=== PATIENT | female | born 1960 | race Caucasian/White ===

== ENCOUNTER 2017-01-09 09:08 | Inpatient (IN) ==
[2017-01-09] MEDS ORDERED: SODIUM CHLORIDE 0.9% 1,000 ML IV STA (09:59)
--- NOTE | 2017-01-09 10:02 | Emergency Department Note ---
Arrival - Arrival Chief Complaint: Non-Specific Stated Complaint: chest pain sob legs swollen ED Nursing Triage Note: c/o Having coughing x 7 weeks, + chills., denies having nausea , also states her legs are swelling bilatereal x 7 weeks., states she has been having weight loss , states she smokes apx. 1 pack per day Mode of Arrival: Wheelchair Limitations: No Limitations Source: Patient, Family Time Seen by Provider: 01/09/17 09:28 - History of Present Illness HPI Narrative: The patient has multiple complaints and states they all started around 7 weeks ago. She complains of coughing, shortness of breath, chills, chest pain, abdominal pain, constipation and weight loss. She thinks she may have had some fever. She denies any nausea or vomiting. The patient has had approximately 20 pound weight loss in the last 7 weeks. She is a heavy smoker. Allergies/Adverse Reactions: Allergies Allergy/AdvReac Type Severity Reaction Status Date / Time No Known Allergies Allergy Unverified 01/09/17 09:16 Review of System - Review of System Constitutional: Present: chills, fever (Subjective), weakness, weight loss. Absent: diaphoresis Eyes: Absent: vision change Head/Ears/Nose/Throat: Absent: nasal drainage, sore throat Respiratory: Present: cough, respiratory distress, wheezing Cardiovascular: Present: chest pain, dyspnea on exertion, edema. Absent: palpitations, orthopnea, syncope Gastrointestinal: Present: abdominal pain, constipation. Absent: nausea, vomiting, diarrhea Genitourinary female: Absent: dysuria Musculoskeletal: Absent: back pain Neurological: Present: weakness (Generalized). Absent: headache, numbness, paresthesias, confusion, abnormal gait Medical,Surgical,& Family Hx - Medical History Medical History: noncontributory - Surgical History Abdominal Surgeries: Surgical HX of: Abdominal Surgery ("For some kind of infection") - Family History Family History: noncontributory - Social History Smoking Status: Current every day smoker Frequency of Alcohol Use: Rarely Type of Drug Use: None Exam Physical Examination: GENERAL: Alert. No acute distress. Cachectic. HEENT: Normocephalic and atraumatic. There is no nasal drainage. No pharyngeal erythema or exudate. NECK: Normal inspection. Supple. No lymphadenopathy or meningismus. LUNGS: No respiratory distress. Fair air movement. Lungs sound decrease on the right. Wheezes throughout. HEART: Regular rate and rhythm. ABDOMEN: Soft, nondistended with normal bowel sounds. Mild diffuse tenderness without guarding or rebound. BACK: Normal inspection. SKIN: Color normal. Warm and dry. EXTREMITIES: Nontender. Normal range of motion. Very thin and wasted. Pitting edema to the knees bilaterally. NEUROLOGICAL/PSYCHIATRIC: Alert and oriented -3 with normal mood and affect. Cranial nerves normal. No motor or sensory deficit. Vital Signs: Vital Signs Temperature 99.0 F 01/09/17 09:27 Pulse Rate 100 H 01/09/17 11:22 Respiratory Rate 23 01/09/17 11:22 Blood Pressure 140/124 01/09/17 09:27 O2 Sat by Pulse Oximetry 99 01/09/17 11:22 Course - Reevaluation(s) Reevaluation #1: With the elevated white count and history of subjective fever and chest x-ray findings, the patient will need to be treated for pneumonia. However, I suspect she also has some underlying pathology, likely cancer. I have discussed the patient with the hospitalist service who will see her and admit. Time: 11:52 Results - Labs CBC & BMP: 01/09/17 10:45 01/09/17 10:45 Lab Results: I have reviewed the patients labs Labs: Laboratory Tests 01/09/17 01/09/17 01/09/17 09:59 10:45 10:45 Total Bilirubin 0.50 AST 67 H ALT 65 H Alkaline Phosphatase 171 H Total Creatine Kinase 47 CK-MB (CK-2) 2.9 Troponin I 0.140 H B-Natriuretic Peptide 392 H Urine Leukocytes Negative Urine RBC <1 Urine WBC 2 - Impressions Chest x-ray shows complete opacification of the right hemithorax. KUB shows displacement of the bowel inferiorly raising the possibility of a mass. EKG shows a sinus rhythm at 99 with a sinus arrhythmia. There is a right bundle branch block. Disposition Clinical Impression: Hyponatremia, Leukocytosis, Pneumonia, Elevated liver enzymes Case discussed with: patient, patient's family Disposition: Still a Patient Condition: Stable Time of Disposition: 11:53
--- NOTE | 2017-01-09 10:25 | XRay Report ---
XR chest 2V Indication: Chest pain, shortness of breath Comparison: None available Findings: The heart and mediastinum are normal in size and configuration. The pulmonary vascularity is normal in caliber. There is diffuse opacification right hemithorax. No other lung infiltrates, effusions, pneumothorax or other abnormality is demonstrated. Impression: Opacification right hemithorax. No other acute findings. PROCEDURE INTERPRETED AT [facility] DEPARTMENT OF RADIOLOGY Final Report Signed by: Dr. Chris Saldana
--- NOTE | 2017-01-09 10:50 | XRay Report ---
XR KUB Indication: Abdominal pain Comparison: None available Findings: No free fluid or free air seen. Bowel appears displaced inferiorly. Otherwise the bowel gas pattern appears within normal limits. No abnormal calcifications are present. No other abnormality is identified. Impression: Bowel is displaced inferiorly, can't exclude mass. No other acute findings. PROCEDURE INTERPRETED AT [facility] DEPARTMENT OF RADIOLOGY Final Report Signed by: Dr. Chris Saldana
--- NOTE | 2017-01-09 10:57 | EKG Report ---
Stationary ECG Study [facility] ER Test Date: 01/09/2017 10:56:25 AM Pat Name: SANJUANA WEEMS Department: Room: Gender: F [employer]: : 1960 Requested by: Jose Elias Landis Order Number: [id number] Reading MD: VAMSHI RAMOS Intervals [place] Rate: 99 P: 30 [place]: 135 QRS: 27 QRSD: 122 T: 0 QT: 275 QTc: 332 Interpretive Statements SINUS RHYTHM WITH SINUS ARRHYTHMIA POSSIBLE RIGHT VENTRICULAR CONDUCTION DELAY Electronically Signed On 01-10-17 18:38:16 CDT by VAMSHI RAMOS [email or web address]
[2017-01-09 11:03] LABS: Basophils % 0.1 % (0.0-0.8); Hematocrit 35.8 VOL% (35.7-47.0); Hemoglobin 11.2 GM/DL (12.0-16.0); Immature Granulocytes % 0.5 %; Immature Granulocytes Absolute 0.09 #; Lymphocytes # 1.4 10*3/uL (1.4-4.0); Lymphocytes % 7.6 % (21.3-54.2); Mean Corpuscular HGB Conc 31.3 GM/DL (32-36); Mean Corpuscular Hemoglobin 29 PG (27-34); Mean Corpuscular Volume 91.1 FL (87-102); Monocytes # 1.7 10*3/uL (0.11-0.8); Monocytes % 9.7 % (1.7-12.7); Neutrophils # 14.8 10*3/uL (1.4-7.4); Neutrophils % 82.1 % (38.7-73.9); Platelet Count 316 T/CUMM (130-400); Red Blood Count 3.93 MC/CUMM (3.8-5.5); Red Cell Distribution Width 15.5 % (9.3-17.3)
[2017-01-09 11:06] LABS: Apearance,Urine Slightly Hazy (Clear); Bilirubin,Urine Negative (Negative); Blood, Urine Negative (Negative); Glucose,Urine (UA) Negative (Negative); Ketones,Urine Negative (Negative); Nitrite,Urine Negative (Negative); Protein,Urine Negative; RBC,Urine <1 /HPF (0-4); Squamous Epithelial Cell,Urine Occasional /HPF (0-10); Urine Color Yellow (Yellow); Urine Specific Gravity 1.008 (1.001-1.035); Urine Urobilinogen < 2.0 EU/DL (0.2-1.0); WBC,Urine 2 /HPF (0-6)
[2017-01-09] MEDS ORDERED: ALBUTEROL/IPRATROPIUM 3 ML NEB RESP TX STA (11:06)
[2017-01-09 11:39] LABS: Alanine Aminotransferase 65 U/L (13-56); Albumin 2.6 G/DL (3.4-5.0); Alkaline Phosphatase 171 U/L (45-117); Aspartate Amino Transferase 67 U/L (0-37); Blood Urea Nitrogen 13 MG/DL (7-18); Glucose 94 MG/DL (74-106); Osmolality,Calculated 252.4 MOS/KG (273-304); Potassium 4.5 MMOL/L (3.5-5.1); Sodium 126 MMOL/L (136-145); Total Protein 7.7 G/DL (6.4-8.3)
[2017-01-09] MEDS ORDERED: cefTRIAXone 1,000 MG in SODIUM CHLORIDE 0.9% 100 ML IV STA (11:47)
[2017-01-09] MEDS ORDERED: ONDANSETRON 4 MG/2 ML VIAL IV PRN (11:50)
[2017-01-09] MEDS ORDERED: SODIUM CHLORIDE 0.45% 1,000 ML IV SCH (12:00)
[2017-01-09] MEDS ORDERED: cefTRIAXone 1,000 MG VIAL ONE (12:03)
[2017-01-09] MEDS ORDERED: SODIUM CHLORIDE 0.9% 100 ML IV ONE (12:04)
[2017-01-09 12:31] LABS: Risk Ratio 4.56; Thyroid Stimulating Hormone 2.3 uIU/ml (0.358-3.74)
--- NOTE | 2017-01-09 12:48 | CT Report ---
CT abdomen pelvis Indication: Abdominal pain, weight loss with nausea and vomiting Comparison: None available Technique: Axial CT imaging of the abdomen and pelvis is performed without contrast. Findings: Complex heterogeneous density and effusion occupies the right lower hemithorax. Small pericardial effusion seen. CT abdomen: Moderate diffuse ascites is seen. The liver appears enlarged, no focal hepatic lesions seen. Spleen pancreas and adrenal glands are normal in size and density. No evidence of focal lesion is demonstrated in these solid organs. Kidneys are normal in size and density. No evidence of hydronephrosis or nephrolithiasis is seen. The bowel caliber is normal and no wall thickening or adjacent inflammatory change is seen. No evidence of free fluid or free air is present. CT pelvis: The bowel and bladder appear within normal limits. The pelvic organs show no evidence of abnormality Impression: Moderate abdominal ascites. Hepatomegaly. Detail limited without contrast. Complex heterogeneous density and effusion in the right lower hemithorax may indicate malignancy. Small pericardial effusion. This CT exam was performed using one or more the following dose reduction techniques: Automated exposure control, adjustment of the MA and/or KV according to patient size, or use of iterative reconstruction technique. PROCEDURE INTERPRETED AT [facility] DEPARTMENT OF RADIOLOGY Final Report Signed by: Dr. Chris Saldana
--- NOTE | 2017-01-09 13:05 | Hospitalist History & Physical ---
<Adrienne Bowieda - Last Filed: 01/09/17 14:02> Assessment and Plan (1) Sepsis Status: Acute Assessment and plan: The patient was noted to be mildly tachycardic with a heart rate noted at 100 and tachypnea with respirations noted at 23. Labs were obtained which were significant for white blood cell count 18.3, hemoglobin 11.2, sodium 126, chloride 84, carbon dioxide 41, calculated osmolality 252.4, calcium 12, AST 67 , ALT 65, alkaline phosphatase 171, troponin 0 0.140, BNP 392, albumin 2.6, globulin 5.1, HDL cholesterol 34. Urinalysis was significant for urine urobilinogen greater than 2.0, urine WBCs 2, in the presence of occasional urine squamous epithelial cells was noted. Chest x-ray was significant for opacification of the right hemithorax. Based on these findings, the patient meets the sepsis criteria. The sepsis bundle has been initiated. Strong cultures have been obtained. We will start empiric antibiotic coverage, inhaled bronchodilators, and gently rehydrate. Current Visit: Yes Qualifiers: Sepsis type: sepsis due to unspecified organism Qualified Code(s): A41.9 - Sepsis, unspecified organism (2) Hyponatremia Status: Acute Assessment and plan: Sodium was noted at 126. We will gently rehydrate and correct the deficit. We will recheck CMP in a.m. Current Visit: Yes (3) Leukocytosis Status: Acute Assessment and plan: White blood cell count was noted at 18.0. The patient was afebrile at the time of ED presentation with a temperature reported at 97.3. Strong cultures have been obtained. Empiric antibiotics have been initiated. We will await culture sensitivity report. Current Visit: Yes (4) Pneumonia Status: Acute Assessment and plan: Chest x-ray was significant for opacification of the right hemithorax. In addition, I feel that there is definitely some underlying chronic obstructive pulmonary disease. Patient reports that she is a current smoker; smokes at least one pack of cigarettes each day. We will start empiric antibiotic coverage , inhaled bronchodilators, and gently rehydrate. We will consult pulmonology to evaluate and assist during the clinical encounter. Current Visit: Yes (5) Unintended weight loss Status: Acute Assessment and plan: The patient reports excessive weight loss in recent months. She reports that she has lost an estimated "20 pounds". She is definitely cachectic and ill in appearance. The patient's weight loss is worrisome. The patient definitely has risk factors for increased risk for malignancy. Patient is a current cigarette smoker and has a strong family history of cancer. We will perform a complete workup to evaluate possible causes. We will consult gastroenterology to evaluate. Current Visit: Yes (6) Nicotine dependence Status: Acute Assessment and plan: The patient reports that she is a current cigarette smoker. She reports that she smokes 1 pack of cigarettes a day. Patient has agreed to wear nicotine patch and nicotine patch has been ordered. Current Visit: Yes History of Present Illness Chief complaint: Chest pain, shortness of breath, bilateral lower extremity edema History of present illness: This is a poor and unfortunate 56-year-old female that presented to the ED at [facility] this morning for the evaluation of chest pain, shortness of breath, and lower extremity edema. The patient reported a medical history significant for nicotine addiction. The patient reported a remote history of abdominal surgery for "some kind of infection". The patient reported the onset of symptoms 7 weeks prior to presentation. A gradual onset of chills and coughing; that eventually progressed to shortness of breath, chills, chest pain, abdominal pain, constipation, and weight loss; however denied nausea and vomiting. The symptoms became very severe. Despite the severity of the patient's condition, the patient reports that she was able to smoke 1 pack of cigarettes daily. In addition the patient reports a dramatic decrease in appetite over the last couple weeks and a gross estimated weight loss of at least 20 pounds. After much encouragement by her family, the patient decided to present to the ED this morning for further evaluation. The patient was assessed at the time of ED presentation. The patient was noted to be mildly tachycardic with a heart rate noted at 100 and tachypnea with respirations noted at 23. Labs were obtained which were significant for white blood cell count 18.3, hemoglobin 11.2, sodium 126, chloride 84, carbon dioxide 41, calculated osmolality 252.4, calcium 12, AST 67, ALT 65, alkaline phosphatase 171, troponin 0 0.140, BNP 392, albumin 2.6, globulin 5.1, HDL cholesterol 34. Urinalysis was significant for urine urobilinogen greater than 2.0, urine WBCs 2, in the presence of occasional urine squamous epithelial cells was noted. Chest x-ray was significant for opacification of the right hemithorax. KUB reported displacement of the bowel inferiorly which could not exclude a mass however only one is essentially unremarkable. After brief discussion with both Dr. Jacoby Escamilla, the patient will be admitted to the hospitalist service for continuation of care. The patient reported no home medications at the time of ED presentation therefore, no medication reconciliation will be performed. CODE STATUS discussed; patient is a FULL CODE. Home Medications Medication Instructions Recorded Confirmed Type No Known Home Medications [No 01/09/17 01/09/17 History Known Home Medications] Allergies Allergy/AdvReac Type Severity Reaction Status Date / Time No Known Allergies Allergy Unverified 01/09/17 09:16 Medical,Surgical,& Family Hx - Surgical History Abdominal Surgeries: Surgical HX of: Abdominal Surgery ("For some kind of infection") - Family History Family History: Reports;: Family Cancer, Family Heart Disease - Social History Smoking Status: Current every day smoker Have you smoked in the last 12 months: Yes Time spent discussing smoking cessation with patient: 3 to 10 minutes Frequency of Alcohol Use: Rarely Type of Drug Use: None Marital Status: Lives With:: Spouse Functional capacity: independent ambulation 12 point system: reviewed and no additional remarkable complaints except as stated Exam - Constitutional Vitals: Period Temp Pulse Resp BP Sys/Singh Pulse Ox Last 24 Hr 99.0 F-99.0 F 100-106 16-23 109-140/82-124 90-100 General appearance: cachectic, disheveled - Head Head exam: Present: normal inspection, normocephalic - Eye Eye exam: Present: EOMI, conjunctival injection Pupils: Present: JAILYN, normal accommodation - ENT ENT exam: Present: normal exam, normal external ear exam, normal oropharynx - Neck Neck exam: Present: normal inspection. Absent: lymphadenopathy, meningismus, tenderness, thyromegaly - Respiratory Respiratory exam: Present: clear to auscultation bilaterally. Absent: rales, rhonchi, stridor, wheezes - Cardiovascular Cardiovascular exam: Present: tachycardia. Absent: carotid bruit, diastolic murmur, gallop, JVD, rubs - GI/Abdominal GI/Abdominal exam: Present: normal bowel sounds, ascites, distended, tenderness (Diffuse tenderness upon gentle palpation) - Extremities Exam Extremities exam: Present: normal capillary refill, edema (+3 pitting edema noted to bilateral lower extremity) - Back Exam Back exam: Present: normal inspection - Neurological Exam Neurological exam: Present: alert, oriented X3, CN II-XII intact, other ( Profound weakness) - Psychiatric Psychiatric exam: Present: flat affect - Skin Skin exam: Present: normal color, warm, dry Results - Labs CBC & BMP: 01/09/17 10:45 01/09/17 10:45 Lab Results: I have reviewed the past 24 hour labs Sepsis - Sepsis Classification of Sepsis: Sepsis Possible / Suspected infection from: Respiratory tract - Physical Exam Physical Exam: The patient was noted to be mildly tachycardic with a heart rate noted at 100 and tachypnea with respirations noted at 23. Labs were obtained which were significant for white blood cell count 18.3, hemoglobin 11.2, sodium 126, chloride 84, carbon dioxide 41, calculated osmolality 252.4, calcium 12, AST 67 , ALT 65, alkaline phosphatase 171, troponin 0 0.140, BNP 392, albumin 2.6, globulin 5.1, HDL cholesterol 34. Urinalysis was significant for urine urobilinogen greater than 2.0, urine WBCs 2, in the presence of occasional urine squamous epithelial cells was noted. Chest x-ray was significant for opacification of the right hemithorax. Based on these findings, the patient meets the sepsis criteria. The sepsis bundle has been initiated. <Anara,Hemant - Last Filed: 01/09/17 15:25> History of Present Illness History of present illness: Ms. Jones is a 56 year old female Exam - Constitutional Vitals: Period Temp Pulse Resp BP Sys/Singh Pulse Ox Last 24 Hr 97.3 F-99.0 F 99-106 16-23 96-140/55-124 90-100 Results - Labs CBC & BMP: 01/09/17 10:45 01/09/17 10:45
[2017-01-09] MEDS ORDERED: ALBUTEROL 2.5 MG/3 ML NEB RESP TX PRN (14:34)
[2017-01-09 15:14] LABS: ABG Base Excess 8.6 MMOL/L (-2.5-2.5); ABG Oxygen Saturation 82.7 % (95-100); ABG PH 7.314 (7.35-7.45); ABG PO2 53.7 MM HG (80-95); ABG TCO2 34.3 MMOL/L (23-27)
[2017-01-09 15:22] LABS: ABG PCO2 73.9 MM HG (35-48)
--- NOTE | 2017-01-09 15:48 | Ultrasound Report ---
Exam: US venous doppler LE BI Indication: Edema Date: 01/09/2017 2:50 PM Findings: Grayscale color flow duplex/Doppler imaging and spectral analysis waveform imaging was performed with real-time ultrasound with image stored and captured. The right common femoral, superficial femoral, popliteal saphenous veins are patent with normal augmentation and compression. There is no evidence of popliteal or Day's cyst. Normal wave form analysis present. Normal color flow The left common femoral, superficial femoral, popliteal saphenous veins are patent with normal augmentation and compression. There is no evidence of popliteal or Day's cyst. Normal wave form analysis present. Normal color flow Impression: 1. No DVT PROCEDURE INTERPRETED AT [facility] DEPARTMENT OF RADIOLOGY Final Report Signed by: Dr. Jose Elias Mata
--- NOTE | 2017-01-09 16:17 | Post Interventional Procedure ---
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 There is no pneumothorax at the conclusion of the procedure. Assessment and Plan - Time spent with patient Time spent with patient: Less than 30 minutes
--- NOTE | 2017-01-09 16:25 | CT Report ---
CT guided thoracentesis cath Chest tube placement with CT guidance Clinical Information: 56-year-old female with complete opacification right hemithorax with large pleural effusion and possible soft tissue density suggestive of malignant involvement of the pleura on imaging. Pigtail chest drain is requested. Physician[s]: Dr. Sanchez Procedure: The patient was advised of the benefits, risks, and alternatives of the procedure and informed consent was obtained. A time out was performed with verification of the patient's name, MRN, site of procedure, and type of procedure to be performed. The patient was positioned in the supine position on the stretcher. The site was prepped and draped in the usual sterile fashion. Local anesthesia only was used for the procedure. CT evaluation of the chest was performed without intravenous contrast demonstrating the large right-sided pleural effusion and multiple soft tissue lesions about the pleura suggestive of neoplastic involvement. The intended puncture site was anesthetized using 1% lidocaine. Under CT guidance a 19 G single wall needle was advanced into the pleural space. There was return of serous fluid. An Amplatz wire was advanced into the pleural space. An 8 Finnish Cook all-purpose pigtail drainage catheter was advanced over the wire and coiled within the pleural space. The pigtail was locked in position and sutured to the skin using Percu-Stay device. A sterile dressing was applied. The chest tube was connected to a Pleur-evac suction and placed to low wall suction. The patient tolerated the procedure well and was returned to the PRU in stable condition. EBL: < 5 mL. Complications: None. Conclusion: Successful placement of an 8 Finnish pigtail catheter into the right pleural space. Plan: Monitor chest tube output and consider conversion to water seal if painful or output when diminishes significantly. PROCEDURE INTERPRETED AT [facility] DEPARTMENT OF RADIOLOGY Final Report Signed by: Gurpreet Sanchez
[2017-01-09] MEDS: SODIUM CHLORIDE 0.9% 1,000 ML IV SCH (16:36)
[2017-01-09] MEDS: ENOXAPARIN 40 MG/0.4 ML SYRINGE SUBCUT SCH (16:37)
[2017-01-09] MEDS: NICOTINE 14 MG/24 HR PATCH TRANSDERM SCH (16:37)
[2017-01-09] MEDS: BENZONATATE 100 MG CAPSULE PO SCH ×2 (16:38→21:23)
--- NOTE | 2017-01-09 17:04 | CT Report ---
CT of the chest, abdomen, and pelvis with intravenous contrast. No oral contrast was administered. Axial images were obtained with sagittal and coronal 2-D reconstructions. Comparison is made to a previous CT of the abdomen and pelvis without contrast dated January 09, 2017. Indication: Abdominal pain, generalized. Ascites. Large pleural effusion. Possible pulmonary malignancy. CT of the chest: There is consolidation of the entire right lung, which is heterogeneous, with lobular foci of irregular enhancement. There is a pleural effusion on the right, and a chest tube pigtail catheter has been placed in the right pleural space. There is lobular mass in the pleural space as well. 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 There is severe narrowing of the right main pulmonary artery which terminates in small significantly narrowed vessels. There is also invasion of portions of the right pulmonary veins. The thoracic aorta is of normal caliber. There is a complex pericardial effusion with pericardial thickening. There is a small left pleural effusion. There is atelectasis and a small amount of basilar edema present involving the left lung. There is extensive collateralization via the azygos vein due to the SVC obstruction. These collaterals extend into the abdomen and pelvis. No bony involvement is seen. Impression: There are findings involving the right lung including complete consolidation of the right lung, with lobular irregular enhancement, extension into the pleural space, and a thick irregular pleural effusion. There is mass effect involving the right aspect of the heart, with occlusion of the SVC and marked narrowing of the right main pulmonary trunk. There is high density pericardial effusion, and pericardial thickening. These findings are highly suspicious for malignancy. CT of abdomen and pelvis with intravenous contrast. The liver is enlarged with a length of 19 cm. No focal liver masses can be identified. The hepatic veins are dilated. There is ascites noted throughout the abdomen. There is fluid around the gallbladder. The loops of bowel are not dilated. There is no evidence of bowel obstruction. The uterus is heterogeneous but not enlarged. The kidneys are essentially normal. There is a small cyst noted on the right kidney. No evidence of ureteral obstruction. The abdominal aorta is of normal caliber with moderate plaque in its wall. No pancreatic enlargement is seen. Extensive collaterals are present within the retroperitoneum and pelvis, from a dilated azygous system. The spleen size is normal. The appendix presents a normal appearance. No definite adenopathy seen. No suspicious bony findings. Degenerative changes of the spinal column. Impression: Hepatomegaly. Possible hepatic congestion. Moderately large amount of ascites. The CT exam was performed using one or more of the following dose reduction techniques: Automated exposure control, adjustment of the mA and/or kV according to patient size, or use of iterative reconstruction technique. PROCEDURE INTERPRETED AT [facility] DEPARTMENT OF RADIOLOGY Final Report Signed by: Dr. Catarina Ferro
--- NOTE | 2017-01-09 17:16 | Pulmonology Consult Note ---
Assessment and Plan (1) Atelectasis of right lung Status: Acute Assessment and plan: The patient has complete opacification of the right chest and I suspect she has a right main lesion. This is almost certainly lung cancer. Current Visit: Yes (2) Lung cancer Status: Acute Assessment and plan: I suspect she has lung cancer in the right main. Will plan a bronchoscope Thursday. Current Visit: Yes (3) Unintended weight loss Status: Acute Assessment and plan: The patient has been losing weight because of her suspected malignancy. Current Visit: Yes (4) Nicotine dependence Status: Acute Assessment and plan: She has a long history of nicotine dependence. Current Visit: Yes (5) COPD (chronic obstructive pulmonary disease) Status: Acute Assessment and plan: Patient has COPD and will continue with bronchodilator therapy. Current Visit: Yes History of Present Illness Chief complaint: Shortness of breath History of present illness: Ms. Jones is a 56 year old white female that has a long history of cigarette smoking and has neglected her health. She apparently had a urinary tract infection about 2 months ago. She says since then she has been losing some weight and not eating very well. She has a chronic cough and congestion. She is not really been having chest pain or hemoptysis. She came in because of shortness of breath and her chest x-ray shows an opacified right chest. She had a small catheter placed but still has opacified lung. She has not had any previous medical problems basically. Home Medications Medication Instructions Recorded Confirmed Type No Known Home Medications [No 01/09/17 01/09/17 History Known Home Medications] Allergies Allergy/AdvReac Type Severity Reaction Status Date / Time No Known Allergies Allergy Unverified 01/09/17 09:16 - Constitutional Constitutional: Present: fatigue, weight loss. Absent: fever(s) - EENT Eyes: Absent: loss of vision Ears: Absent: decreased hearing Nose, mouth and throat: Absent: dysphagia, headache(s) - Cardiovascular Cardiovascular: Present: dyspnea on exertion. Absent: chest pain with activity , edema, orthopnea - Respiratory Respiratory: Present: cough, dyspnea, wheezing. Absent: hemoptysis, pain on inspiration - Gastrointestinal Gastrointestinal: Present: abdominal pain. Absent: change in bowel habits, dysphagia, nausea, vomiting - Genitourinary Genitourinary: Absent: dysuria, hematuria - Musculoskeletal Musculoskeletal: Absent: arthralgias - Neurological Neurological: Absent: abnormal speech, focal weakness Exam (Pulmonay) H&P - Constitutional Vitals: Period Temp Pulse Resp BP Sys/Singh Pulse Ox Last 24 Hr 97.3 F-99.0 F 99-106 16-23 88-140/52-124 90-100 General appearance: no acute distress, cachectic - Head Head exam: Present: normal inspection, normocephalic - Eye Eye exam: Present: EOMI. Absent: scleral icterus Pupils: Present: JAILYN - ENT ENT exam: Present: normal exam - Neck Neck exam: Present: other (She does have distended neck pain). Absent: lymphadenopathy, thyromegaly - Respiratory Respiratory exam: Present: accessory muscle use, decreased breath sounds (She has decreased breath sounds in the right chest). Absent: wheezes - Cardiovascular Cardiovascular exam: Present: regular rate and rhythm. Absent: gallop, systolic murmur - GI/Abdominal GI/Abdominal exam: Present: distended, firm, organomegaly (She does have a large liver), tenderness, soft - Extremities Exam Extremities exam: Absent: calf tenderness, edema - Neurological Exam Neurological exam: Present: alert, oriented X3, CN II-XII intact - Psychiatric Psychiatric exam: Present: normal affect - Skin Skin exam: Present: warm, dry Medical,Surgical,& Family Hx - Medical History Psychological: No history of: Anxiety Disorders, ADHD, Behavior Problems, Bipolar Disorder, Depression, Previous Suicide Attempt, Psychiatric/Substance Abuse Tx, Schizophrenia, Violent Behavior, Psychiatric Problems - Surgical History Abdominal Surgeries: Surgical HX of: Abdominal Surgery ("For some kind of infection") - Family History Family History: Reports;: Family Cancer, Family Heart Disease - Social History Smoking Status: Current every day smoker Frequency of Alcohol Use: Rarely Type of Drug Use: None Results - Labs CBC & BMP: 01/09/17 10:45 01/09/17 10:45 Labs: PO2 is 53 with a PCO2 of 73 and a pH of 7.3 - Diagnostic Findings Procedure: Chest x-ray: image reviewed by me, report reviewed by me (Opacified right chest), CT - chest: image reviewed by me, report reviewed by me (Does not appear to have any air in the right chest. There is collapse lung and effusion)
--- NOTE | 2017-01-09 17:17 | Event Note ---
Channel Supervisor notified per Dr. Ferro, Radiologist. CT abdomen and pelvis with contrast was significant for complete consolidation of the right lung with lobular irregular enhancement extension into the pleural space and a thick irregular pleural effusion. In addition there was a mass-effect involving the right aspect of the heart with occlusion of the superior vena cava and market narrowing of the right main pulmonary trunk. Areas of high density pericardial effusion and pericardial thickening was noted. CT-guided right chest tube placement per interventional radiology. Case discussed with Dr. Escamilla; the patient will be moved to the critical care unit for close observation. Cardiothoracic surgery and cardiology consultations have been requested.
[2017-01-09] MEDS: AZITHROMYCIN INJ 500 MG in SODIUM CHLORIDE 0.9% 250 ML IV SCH (17:21)
[2017-01-09 18:02] LABS: HIV Antigen/Antibody Result Nonreactive (Nonreactive); Hepatitis A Ab IgM Quant 0.12 Index; Hepatitis A Ab IgM Result Negative (Negative); Hepatitis B Core IgM Quant 0.12 Index; Hepatitis B Core IgM Result Negative (Negative); Hepatitis B Surface Ag Quant 0.34 Index; Hepatitis B Surface Ag Result Negative (Negative); Hepatitis C Virus Ab Quant > 11.00 Index; Hepatitis C Virus Ab Result Positive (Negative)
[2017-01-09 18:23] LABS: Lymphocytes,Pleural Fluid 79 %; Monocytes,Pleural Fluid 1 %; Neutrophils,Pleural Fluid 20 %
[2017-01-09 18:24] LABS: RBC,Pleural Fluid 872 T/CUMM
[2017-01-09] MEDS: methylPREDNISolone SOD SUC 40 MG/1 ML VIAL IV SCH (18:36)
[2017-01-09] MEDS: MORPHINE 2 MG/1 ML SYRINGE IV PRN (19:28)
[2017-01-09] MEDS: ALBUTEROL/IPRATROPIUM 3 ML NEB RESP TX SCH (20:13)
[2017-01-10] MEDS: ALBUTEROL/IPRATROPIUM 3 ML NEB RESP TX SCH ×5 (00:33→23:22)
[2017-01-10] MEDS: SODIUM CHLORIDE 0.9% 1,000 ML IV SCH ×2 (00:55→03:44)
[2017-01-10] MEDS: methylPREDNISolone SOD SUC 40 MG/1 ML VIAL IV SCH ×3 (01:16→17:07)
[2017-01-10 03:55] LABS: ABG Base Excess 5.4 MMOL/L (-2.5-2.5); ABG HCO3 29.3 MMOL/L (20-26); ABG Oxygen Saturation 97.4 % (95-100); ABG PH 7.222 (7.35-7.45); ABG TCO2 33.6 MMOL/L (23-27); Allen Test Positive
[2017-01-10 05:54] LABS: Basophils % 0.1 % (0.0-0.8); Hematocrit 34.6 VOL% (35.7-47.0); Hemoglobin 10.2 GM/DL (12.0-16.0); Immature Granulocytes % 0.8 %; Immature Granulocytes Absolute 0.16 #; Lymphocytes # 0.5 10*3/uL (1.4-4.0); Lymphocytes % 2.3 % (21.3-54.2); Mean Corpuscular HGB Conc 29.5 GM/DL (32-36); Mean Corpuscular Hemoglobin 28 PG (27-34); Mean Corpuscular Volume 93.8 FL (87-102); Mean Platelet Volume 9.5 FL (9.6-12.0); Monocytes # 0.4 10*3/uL (0.11-0.8); Monocytes % 1.7 % (1.7-12.7); Neutrophils # 19.2 10*3/uL (1.4-7.4); Neutrophils % 95.1 % (38.7-73.9); Platelet Count 316 T/CUMM (130-400); Red Blood Count 3.69 MC/CUMM (3.8-5.5); Red Cell Distribution Width 15.6 % (9.3-17.3); White Blood Count 20.2 T/CUMM (4-12)
[2017-01-10 06:35] LABS: Band Neutrophils 2 % (0-10); Giant Platelets Few; Hypochromasia 1+; Lymphocytes 3 % (20-55); Ovalocytes Slight; Platelet Estimate Adequate; Segmented Neutrophils 94 % (50-85); Total Cells Counted 100
[2017-01-10 06:49] LABS: Albumin 2.3 G/DL (3.4-5.0); Bilirubin,Total 0.7 MG/DL (0.2-1.0); Calcium 11.5 MG/DL (8.5-10.1); Osmolality,Calculated 262.7 MOS/KG (273-304)
--- NOTE | 2017-01-10 07:29 | Pulmonology Progress Note ---
Pulmonary - PN: Subj Interval history: Patient is a 56-year-old white lady that is a lifelong smoker that now presents with obstructed right lung and likely has lung cancer at her right main bronchus. She does have COPD with CO2 retention. She looks like she is very sensitive to oxygen. 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 She was alert and talking yesterday but she has been a little lethargic to the night. Her PCO2 is up in the 80s. She otherwise has stable vital signs. Exam (Progress Note) - Constitutional Vitals: Period Temp Pulse Resp BP Sys/Singh Pulse Ox Last 24 Hr 97.3 F-99.0 F 93-110 11-32 88-140/52-124 90-100 Exam: General appearance: no acute distress, she is fairly lethargic this morning. Cachectic, she does have stable vital signs. - Head Head exam: Present: normal inspection, normocephalic - Eye Eye exam: Present: EOMI. Absent: scleral icterus Pupils: Present: JAILYN - ENT ENT exam: Present: normal exam - Neck Neck exam: Present: other (She does have distended neck veins). Absent: lymphadenopathy, thyromegaly - Respiratory Respiratory exam: Present: accessory muscle use, decreased breath sounds (She has decreased breath sounds in the right chest). Absent: wheezes - Cardiovascular Cardiovascular exam: Present: regular rate and rhythm. Absent: gallop, systolic murmur - GI/Abdominal GI/Abdominal exam: Present: distended, firm, organomegaly (She does have a large liver), tenderness, soft - Extremities Exam Extremities exam: Absent: calf tenderness, edema - Neurological Exam Neurological exam: Present: She is arousable but is a little more lethargic today. - Psychiatric Psychiatric exam: Present: normal affect - Skin Skin exam: Present: warm, dry Results - Labs CBC & BMP: 01/10/17 03:29 01/10/17 03:29 Labs: Her PO2 is 113 with a PCO2 of 88 pH of 7.22 - Diagnostic Findings Procedure: Chest x-ray: image reviewed by me, report reviewed by me (Chest x- ray is unchanged with opacified right lung.) Assessment and Plan (1) Atelectasis of right lung Status: Acute Assessment and plan: The patient has complete opacification of the right chest and I suspect she has a right main lesion. This is almost certainly lung cancer. Her overall outlook is very poor. Current Visit: Yes (2) Lung cancer Status: Acute Assessment and plan: I suspect she has lung cancer in the right main. Will plan a bronchoscope Thursday. 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 Current Visit: Yes (3) Unintended weight loss Status: Acute Assessment and plan: The patient has been losing weight because of her suspected malignancy. Current Visit: Yes (4) Nicotine dependence Status: Acute Assessment and plan: She has a long history of nicotine dependence. Current Visit: Yes (5) COPD (chronic obstructive pulmonary disease) Status: Acute Assessment and plan: Patient has COPD and will continue with bronchodilator therapy. She does have CO2 retention and will keep her on very minimal oxygen. Current Visit: Yes
[2017-01-10 08:08] LABS: Apearance,Urine Slightly Hazy (Clear); Bilirubin,Urine Negative (Negative); Blood, Urine Negative (Negative); Glucose,Urine (UA) Negative (Negative); Ketones,Urine Negative (Negative); Nitrite,Urine Negative (Negative); Protein,Urine Negative; RBC,Urine <1 /HPF (0-4); Urine Color Yellow (Yellow); Urine Specific Gravity 1.026 (1.001-1.035); Urine Urobilinogen < 2.0 EU/DL (0.2-1.0); WBC,Urine 2 /HPF (0-6)
[2017-01-10] MEDS: THEOPHYLLINE ER (24 HR) 400 MG CAPSULE PO SCH ×2 (08:16→09:56)
[2017-01-10] MEDS: NICOTINE 14 MG/24 HR PATCH TRANSDERM SCH (10:04)
[2017-01-10] MEDS: BENZONATATE 100 MG CAPSULE PO SCH ×3 (10:04→21:32)
--- NOTE | 2017-01-10 10:14 | Gastrointestinal Consult Note ---
Assessment and Plan - Time spent with patient Time spent with patient: Greater than 30 minutes (1) Hepatic congestion Status: Acute Current Visit: Yes (2) HCV (hepatitis C virus) Status: Acute Current Visit: Yes (3) Ascites Status: Acute Current Visit: Yes (4) Other specified counseling Status: Acute Current Visit: Yes History of Present Illness History of present illness: Ms. Jones is a 56 year old female Home Medications Medication Instructions Recorded Confirmed Type No Known Home Medications [No 01/09/17 01/09/17 History Known Home Medications] Allergies Allergy/AdvReac Type Severity Reaction Status Date / Time No Known Allergies Allergy Unverified 01/09/17 09:16 Medical,Surgical,& Family Hx - Medical History Psychological: No history of: Anxiety Disorders, ADHD, Behavior Problems, Bipolar Disorder, Depression, Previous Suicide Attempt, Psychiatric/Substance Abuse Tx, Schizophrenia, Violent Behavior, Psychiatric Problems - Surgical History Abdominal Surgeries: Surgical HX of: Abdominal Surgery ("For some kind of infection") - Family History Family History: Reports;: Family Cancer, Family Heart Disease - Social History Smoking Status: Current every day smoker Frequency of Alcohol Use: Rarely Type of Drug Use: None Exam - Constitutional Vitals: Period Temp Pulse Resp BP Sys/Singh Pulse Ox Last 24 Hr 97.3 F-98.7 F 92-110 11-32 88-113/52-82 90-100 Results - Labs CBC & BMP: 01/10/17 03:29 01/10/17 03:29 Note Addendum: PLEASE NOTE -- automatic citation of patient information is unavoidable in this electronic note. I have made a reasonable effort to review the information cited , but it is not a part of my evaluation, impression, or recommendation unless specifically discussed in the dictated text that follows. As well, voice recognition software was used in the creation of this clinical note. Reasonable effort was made to identify and correct gross errors. Despite proofreading, errors in mixing supervisor may be present, including nonsense verbiage at times. If you encounter such an error, please contact me at [phone] for discussion and correction. -- Michelle Chief complaint: shortness of breath History of present illness: This is a new patient, a 56-year-old female seen by consultation for evaluation of elevated liver associated enzymes. The patient is admitted to the intensive care unit under the care of Dr. Harvey with a primary diagnosis of sepsis in the setting of a probable obstructive lung cancer. The patient was admitted through the emergency department yesterday with primary complaint of shortness of breath and chest pain. Evaluation at that time revealed evidence of pleural effusion requiring thoracentesis. Further radiologic evaluation revealed what appears to be a right-sided lung cancer with post obstructive physiology. She was also noted to have ascites and elevation in liver associated enzymes. She admits to anorexia over the preceding couple of months and and has experienced weight loss on that basis, from a baseline around 105-110 pounds to around 90 pounds now. She is able to eat and drink with no difficulty swallowing when she wishes. Her bowel pattern has been irregular with soft stool but without blood, mucus, or pus. She is unaware of prior exposure to viral hepatitis but does have tattoos and does admit at least one prior incident of intravenous drug use. She has no known family history of liver disease. She is unaware of any personal or family history of autoimmune disease. She does not carry a diagnosis of diabetes or prediabetes. She does not have diagnosed or obvious components of metabolic syndrome at baseline. Since her admission, she has had a chest tube placed and is being treated with empiric antibiotic. This has resulted in significant improvement in her chest discomfort and breathing. Volume management has improved and liver associated enzymes have trended down. Patient denies headache, dizziness, neck pain, visual changes, redness of the eyes, dysphagia, odynophagia, difficulty chewing, nausea, vomiting, regurgitation, hematemesis, diarrhea, hematochezia, melena, proctalgia, constipation, dysuria, skin changes, temperature regulation issues, flushing, easy bleeding/bruising, musculoskeletal pain, mental status change, numbness/ weakness in the extremities, yellowing of the eyes/skin, cutaneous eruptions, allergies to food or drug, family history of gastrointestinal cancer and colon polyps, and other complaints in general. Review of systems: 12 point review of systems was negative except as documented above. Outpatient medications: none Inpatient medications: albuterol, Duoneb, azithromycin, ceftriaxone, Lovenox, Demerol, Solu-Medrol, [place], morphine, nicotine, Zofran, Phenergen, theophylline, normal saline infusion Past Medical History: none reported Social history: positive tobacco. Occasional alcohol Family history: no gastrointestinal cancers Physical examination: Vital Signs: Current vital signs reviewed and documented above. General Appearance: sitting up in bed watching television. Comfortable. Chest tube in place at the right with straw-colored drainage. Conversant and friendly. No apparent distress. Head: Normocephalic. Neck: Palpation of the neck revealed no abnormalities. Eyes: No scleral icterus. No scleral injection. No conjunctival pallor. Oral Cavity: Odor of breath was normal. No drooling was observed. Dentition was poor. Lips showed no abnormalities. Floor of the mouth showed no abnormalities. Pharynx: Oropharynx was normal. Lungs: Respiration rhythm and depth was normal. Chest tube in place at the right. Cardiovascular: Heart rate and rhythm were normal. Abdomen: abdomen was not distended. [Abdominal palpation revealed no tenderness but have had a one appreciated with liver edge 2-3 cm below the costal margin. Ascites was not discovered. Abdominal auscultation revealed positive bowel sounds. Musculoskeletal System: Musculoskeletal system was grossly normal. Neurological: level of consciousness was normal. Speech was normal. Skin: General appearance was normal. Color and pigmentation were normal. No skin lesions.Venous collateralization was suggested with isolated dilated vessels visible along the lower abdomen. Laboratory: white blood count 20.2, hemoglobin 10.2, hematocrit 34.6, platelets 316 ALT 51, AST 38, alkaline phosphatase 145, albumin 2.3, total protein 7.0, hepatitis B negative, hepatitis C antibody positive, HIV negative Radiology: CT of the abdomen and pelvis -- hepatomegaly with possible congestion ; ascites; no liver masses identified consolidation of the entire ride long; pleural effusion; mass effect involving the right aspect of the heart with compromise of the great vessels Impressions: #1. Hepatic congestion -- elevated liver associated enzymes in a non- obstructive hepatocellular pattern. This is most likely a consequence of hepatic congestion due to mass effect in/around the mediastinum with compromise of the superior vena cava. There has been some improvement with volume management and ascites is not clinically apparent at the moment. I recommend continued aggressive volume management and monitoring of liver associated enzymes as we pursue management of her apparent malignancy. As the patient goes through definitive therapy for her primary diagnosis, it would be reasonable to pursue further hepatic diagnostics and treatment during convalescence. #2. Hepatitis C infection, chronic -- the patient has a positive hepatitis C antibody screen and reports behavioral risk factors for exposure including home tattoos and intravenous drug use. It's possible liver associated enzymes elevation is a consequence of the hepatitis but more likely the acute elevation is a consequence of hepatic congestion as discussed above. I recommend genotyping and viral load measurement. This will give a better understanding of where we stand and will allow discussion regarding the potential benefit of therapy. Again, though, this would be a discussion for outpatient setting during convalescence. #3. Ascites -- this is also likely consequence of the post obstructive pathophysiology with vascular compromise. It is also possible this is malignant ascites proper. In any case, this is likely consequence of the primary diagnosis and extensive diagnostics are not indicated. As with elevated liver enzymes, should she begin to improve with respect to the primary diagnosis, and should ascites remain a problem, further evaluation could be undertaken at that time. #4. Other specified counseling -- The patient was seen for greater than 60 minutes. The patient was counseled for greater than 50% of this time regarding differential diagnosis, likely diagnosis, diagnostic and therapeutic alternatives, risks/benefits/alternatives of medications and procedures, and plan of care generally. The patient expressed understanding and wishes to proceed. Recommendations: -- continued volume management -- hepatitis C genotype -- hepatitis C viral load -- monitor liver associated enzymes -- no indication for paracentesis at this point -- thank you for this consultation. We will follow with you
--- NOTE | 2017-01-10 10:31 | Hospitalist Progress Note ---
Assessment and Plan (1) Lung cancer Status: Acute Assessment and plan: At this point she appears to have pericardial involvement, mediastinal extension with superior vena caval syndrome, right mainstem bronchus obstruction with atelectasis of right lung and secondary ascites due to passive pressure increase (possible hepatic vein/IVC mediated). Elevated calcium level suggests squamous cell histology. She obviously has underlying chronic obstructive pulmonary disease with oxygen sensitivity and well-tolerated CO2 retention. Current Visit: Yes Hospitalist: Subjective Interval history: 56-year-old female presenting with edema, dyspnea, and bilateral chest pain with history of weight loss and chronic tobacco use was found during ER evaluation to have an occluding mass in the right lung with mediastinal extension and pericardial thickening and pericardial effusion with evident superior vena caval syndrome with collateral formation. Abdominal CT appears to show chronic hepatic congestion with ascites but without any hepatic mass lesion. Patient underwent chest tube placement on the right side. She does appear to have chronic obstructive pulmonary disease with oxygen sensitivity with the development of CO2 retention at higher oxygen delivery. Overnight her vital signs were stable and clinically she looks much better than her objective data would suggest. She states her breathing is much better, her chest pain is largely resolved. Exam - Constitutional Vitals: Period Temp Pulse Resp BP Sys/Singh Pulse Ox Last 24 Hr 97.3 F-98.7 F 92-110 11-32 88-113/52-82 90-100 General appearance: under weight - Respiratory Respiratory exam: Present: other. Absent: rales, rhonchi, wheezes - Cardiovascular Cardiovascular exam: Present: JVD (Venous pressure is markedly increased with no pulsations consistent with obstructive changes in the superior vena caval distribution), regular rate and rhythm, other (No rub is auscultated) - GI/Abdominal GI/Abdominal exam: Present: normal bowel sounds, organomegaly (Liver is enlarged and nonpulsatile). Absent: tenderness - Extremities Exam Extremities exam: Present: edema (Trace) - Neurological Exam Neurological exam: Present: alert, oriented X3 Results - Labs CBC & BMP: 01/10/17 03:29 01/10/17 03:29 Labs: PH 7.22 PCO2 88 PO2 113 on 1 L per nasal cannula Calcium 11.5 (corrected 12.9) - Diagnostic Findings Procedure: Chest x-ray: image reviewed by me (Opacification of the right hemithorax.)
--- NOTE | 2017-01-10 11:56 | XRay Report ---
History is short of breath Comparison 01/09/2017 Complete opacification right chest remains. Pigtail catheter in the lateral right lower chest is present with small amount of adjacent gas. Minimal lucency laterally and superiorly the right chest could be skinfold or minimal pleural air There is mildly increasing patchy and mildly more confluent consolidation in the left retrocardiac base with small left effusion. Impression: 1. Continued complete opacification the right chest with question of small amounts of pleural air 2. Mildly increasing infiltrate/atelectasis and small effusion in the left lung base PROCEDURE INTERPRETED AT [facility] DEPARTMENT OF RADIOLOGY Final Report Signed by: Dr. Josefina Ferro
[2017-01-10] MEDS: ENOXAPARIN 40 MG/0.4 ML SYRINGE SUBCUT SCH (12:09)
--- NOTE | 2017-01-10 13:48 | Cardiology Consult Note ---
Assessment and Plan - Time spent with patient Time spent with patient: Greater than 30 minutes (Examination chart review images reviewed documentation) (1) Right heart failure Status: Chronic Assessment and plan: This appears chronic based on the echocardiogram. Current Visit: Yes (2) Pulmonary hypertension Status: Chronic Current Visit: Yes (3) Pericardial effusion Status: Acute Current Visit: Yes (4) Hyponatremia Status: Chronic Current Visit: Yes (5) Leukocytosis Status: Chronic Current Visit: Yes (6) Unintended weight loss Status: Acute Current Visit: Yes (7) Nicotine dependence Status: Acute Current Visit: Yes (8) Lung cancer Status: Chronic Current Visit: Yes (9) COPD (chronic obstructive pulmonary disease) Status: Chronic Current Visit: Yes Qualifiers: COPD type: COPD with acute exacerbation Qualified Code(s): J44.1 - Chronic obstructive pulmonary disease with (acute) exacerbation (10) Hepatic congestion Status: Acute Current Visit: Yes (11) HCV (hepatitis C virus) Status: Chronic Current Visit: Yes History of Present Illness - Data of Consult Patient: new to practice Consult date: 01/10/17 - Consult Narrative Reason for consult: Abnormal chest CT with pericardial effusion and impingement on the myocardi History of present illness: Ms. Jones is a 56 year old female admitted with abnormal chest exam and white out of right hemithorax. 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 The patient has a long history of smoking cigarettes and marijuana she denies any cardiovascular problems prior to now she states that she has been healthy. No previous cardiovascular evaluation or workup are known. The patient is in the ICU. She obviously is profoundly cachectic and appears chronically ill. She is disheveled. She is very verbose and it is difficult to get her to be quiet for the exam. Nothing further to add at this time. I will sign off, please call if needed. CC: Gm Harvey MD - Home Medications and Allergies Home Medications: Home Medications Medication Instructions Recorded Confirmed Type No Known Home Medications [No 01/09/17 01/09/17 History Known Home Medications] Allergies/Adverse Reactions: Allergies Allergy/AdvReac Type Severity Reaction Status Date / Time No Known Allergies Allergy Unverified 01/09/17 09:16 - Constitutional Constitutional: Present: weight loss (She states her normal weight is about 105 pounds when she smoking if she quit smoking she weighs about 125 she has lost down now to her current weight.) - Cardiovascular Cardiovascular: Present: dyspnea, dyspnea on exertion - Respiratory Respiratory: Present: cough, dyspnea, dyspnea on exertion - Gastrointestinal Gastrointestinal: Present: early satiety. Absent: abdominal pain, bloating - Genitourinary Genitourinary: Absent: flank pain - Musculoskeletal Musculoskeletal: Present: arthralgias - Psychiatric Psychiatric: Present: anxiety, depression (Appears to be situational over the abandonment by her daughter) - Endocrine Endocrine: Present: cold intolerance. Absent: heat intolerance - Hematologic/Lymphatic Hematologic/Lymphatic: Absent: easy bleeding, easy bruising Medical,Surgical,& Family Hx - Medical History Cardio: No history of: Aneurysm, Cardiac Dysrhythmia, Cerebrovascular Disease, Congenital Heart Disease, CHF, CAD, Hypertension, DC, Pacemaker, PVD, Valvular Heart Disease, Cardiovascular Problems Psychological: No history of: Anxiety Disorders, ADHD, Behavior Problems, Bipolar Disorder, Depression, Previous Suicide Attempt, Psychiatric/Substance Abuse Tx, Schizophrenia, Violent Behavior, Psychiatric Problems - Surgical History Abdominal Surgeries: Surgical HX of: Abdominal Surgery ("For some kind of infection") - Family History Family History: Reports;: Family Cancer, Family Heart Disease - Social History Smoking Status: Current every day smoker Frequency of Alcohol Use: Rarely Type of Drug Use: Marijuana Marital Status: Single Lives With:: Alone Functional capacity: independent ambulation Physical Examination Vital Signs Temp Pulse Resp BP Pulse Ox 99.0 F 106 H 16 140/124 90 L 01/09/17 09:11 01/09/17 09:11 01/09/17 09:11 01/09/17 09:11 01/09/17 09:11 General: Present: Cachectic, Other (Appears chronically ill) Neck: Present: Other ([place] and all vessels of the upper chest including the external jugular and superficial veins in the anterior chest) Cardiac: Present: Regular Rate (Resting tachycardia tones are crisp), S1/S2 Lungs: Present: Wheezes (On the left no significant breath sounds on the right) Neuro: Present: Motor Function Intact Skin: Present: Clear. Absent: Rash Extremities: Absent: Edema Result/EKG - Labs CBC & BMP: 01/10/17 03:29 01/10/17 03:29 Labs: Laboratory Results - last 24 hr 01/09/17 01/09/17 01/09/17 10:45 10:45 10:45 WBC RBC Hgb Hct MCV MCH MCHC RDW Plt Count MPV Neut % (Auto) Lymph % (Auto) [place] % (Auto) Eos % (Auto) Baso % (Auto) Neut # (Auto) Lymph # (Auto) [place] # (Auto) Eos # (Auto) Baso # (Auto) Total Counted Immature Gran % Nucleated RBC % Immature Gran # Segmented Neutrophils Band Neutrophils Lymphocytes Monocytes Nucleated RBCs # Platelet Estimate Giant Platelets Immature Plt Fraction Hypochromasia Ovalocytes ABG pH ABG pCO2 ABG pO2 ABG HCO3 ABG Total CO2 ABG O2 Saturation ABG Base Excess FiO2 Sodium Potassium Chloride Carbon Dioxide Anion Gap BUN Creatinine GFR Calculation BUN/Creatinine Ratio Glucose Calculated Osmolality Lactic Acid Calcium Magnesium Total Bilirubin AST ALT Alkaline Phosphatase Lactate Dehydrogenase Troponin I C-Reactive Protein 8.48 H Total Protein Albumin Globulin Albumin/Globulin Ratio Random Cortisol 37.3 Urine Color Urine Appearance Urine pH Ur Specific [place] Urine Protein Urine Glucose (UA) Urine Ketones Urine Blood Urine Nitrate Urine Bilirubin Urine Urobilinogen Urine Leukocytes Urine RBC Urine WBC Ur Culture Indicated? Pleural pH Pleural WBC Pleural RBC Pleural Tot Cell Ct Pleural Neutrophils Pleural Lymphocytes Pleural Monocytes Pleural Total Protein Pleural LDH Pleural Glucose Hepatitis A IgM Ab Negative Hep Bs Antigen Negative Hep B Core IgM Ab Negative Hepatitis C Antibody Positive A HIV 1&2 Antigen & Ab Nonreactive 01/09/17 01/09/17 01/09/17 10:45 15:05 16:00 WBC RBC Hgb Hct MCV MCH MCHC RDW Plt Count MPV Neut % (Auto) Lymph % (Auto) [place] % (Auto) Eos % (Auto) Baso % (Auto) Neut # (Auto) Lymph # (Auto) [place] # (Auto) Eos # (Auto) Baso # (Auto) Total Counted Immature Gran % Nucleated RBC % Immature Gran # Segmented Neutrophils Band Neutrophils Lymphocytes Monocytes Nucleated RBCs # Platelet Estimate Giant Platelets Immature Plt Fraction Hypochromasia Ovalocytes ABG pH 7.314 L ABG pCO2 73.9 H* ABG pO2 53.7 L ABG HCO3 32.0 H ABG Total CO2 34.3 H ABG O2 Saturation 82.7 L ABG Base Excess 8.6 H FiO2 Sodium Potassium Chloride Carbon Dioxide Anion Gap BUN Creatinine GFR Calculation BUN/Creatinine Ratio Glucose Calculated Osmolality Lactic Acid Calcium Magnesium Total Bilirubin AST ALT Alkaline Phosphatase Lactate Dehydrogenase 239 Troponin I C-Reactive Protein Total Protein Albumin Globulin Albumin/Globulin Ratio Random Cortisol Urine Color Urine Appearance Urine pH Ur Specific [place] Urine Protein Urine Glucose (UA) Urine Ketones Urine Blood Urine Nitrate Urine Bilirubin Urine Urobilinogen Urine Leukocytes Urine RBC Urine WBC Ur Culture Indicated? Pleural pH Pleural WBC 149 Pleural RBC [address] 100 Pleural Neutrophils 20 Pleural Lymphocytes 79 Pleural Monocytes 1 Pleural Total Protein Pleural LDH Pleural Glucose Hepatitis A IgM Ab Hep Bs Antigen Hep B Core IgM Ab Hepatitis C Antibody HIV 1&2 Antigen & Ab 01/09/17 01/09/17 01/09/17 16:00 16:00 16:00 WBC RBC Hgb Hct MCV MCH MCHC RDW Plt Count MPV Neut % (Auto) Lymph % (Auto) [place] % (Auto) Eos % (Auto) Baso % (Auto) Neut # (Auto) Lymph # (Auto) [place] # (Auto) Eos # (Auto) Baso # (Auto) Total Counted Immature Gran % Nucleated RBC % Immature Gran # Segmented Neutrophils Band Neutrophils Lymphocytes Monocytes Nucleated RBCs # Platelet Estimate Giant Platelets Immature Plt Fraction Hypochromasia Ovalocytes ABG pH ABG pCO2 ABG pO2 ABG HCO3 ABG Total CO2 ABG O2 Saturation ABG Base Excess FiO2 Sodium Potassium Chloride Carbon Dioxide Anion Gap BUN Creatinine GFR Calculation BUN/Creatinine Ratio Glucose Calculated Osmolality Lactic Acid Calcium Magnesium Total Bilirubin AST ALT Alkaline Phosphatase Lactate Dehydrogenase Troponin I C-Reactive Protein Total Protein Albumin Globulin Albumin/Globulin Ratio Random Cortisol Urine Color Urine Appearance Urine pH Ur Specific [place] Urine Protein Urine Glucose (UA) Urine Ketones Urine Blood Urine Nitrate Urine Bilirubin Urine Urobilinogen Urine Leukocytes Urine RBC Urine WBC Ur Culture Indicated? Pleural pH 8.50 Pleural WBC Pleural RBC Pleural Tot Cell Ct Pleural Neutrophils Pleural Lymphocytes Pleural Monocytes Pleural Total Protein Pleural LDH 719 Pleural Glucose 69 Hepatitis A IgM Ab Hep Bs Antigen Hep B Core IgM Ab Hepatitis C Antibody HIV 1&2 Antigen & Ab 01/09/17 01/09/17 01/09/17 16:00 17:03 17:03 WBC RBC Hgb Hct MCV MCH MCHC RDW Plt Count MPV Neut % (Auto) Lymph % (Auto) [place] % (Auto) Eos % (Auto) Baso % (Auto) Neut # (Auto) Lymph # (Auto) [place] # (Auto) Eos # (Auto) Baso # (Auto) Total Counted Immature Gran % Nucleated RBC % Immature Gran # Segmented Neutrophils Band Neutrophils Lymphocytes Monocytes Nucleated RBCs # Platelet Estimate Giant Platelets Immature Plt Fraction Hypochromasia Ovalocytes ABG pH ABG pCO2 ABG pO2 ABG HCO3 ABG Total CO2 ABG O2 Saturation ABG Base Excess FiO2 Sodium Potassium Chloride Carbon Dioxide Anion Gap BUN Creatinine GFR Calculation BUN/Creatinine Ratio Glucose Calculated Osmolality Lactic Acid 1.4 Calcium Magnesium Total Bilirubin AST ALT Alkaline Phosphatase Lactate Dehydrogenase Troponin I 0.131 H C-Reactive Protein Total Protein Albumin Globulin Albumin/Globulin Ratio Random Cortisol Urine Color Urine Appearance Urine pH Ur Specific [place] Urine Protein Urine Glucose (UA) Urine Ketones Urine Blood Urine Nitrate Urine Bilirubin Urine Urobilinogen Urine Leukocytes Urine RBC Urine WBC Ur Culture Indicated? Pleural pH Pleural WBC Pleural RBC Pleural Tot Cell Ct Pleural Neutrophils Pleural Lymphocytes Pleural Monocytes Pleural Total Protein 3.6 Pleural LDH Pleural Glucose Hepatitis A IgM Ab Hep Bs Antigen Hep B Core IgM Ab Hepatitis C Antibody HIV 1&2 Antigen & Ab 01/09/17 01/09/17 01/10/17 19:59 19:59 03:29 WBC 20.2 H RBC 3.69 L Hgb 10.2 L Hct 34.6 L MCV 93.8 MCH 28 MCHC 29.5 L RDW 15.6 Plt Count 316 MPV 9.5 L Neut % (Auto) 95.1 H Lymph % (Auto) 2.3 L [place] % (Auto) 1.7 Eos % (Auto) 0.0 Baso % (Auto) 0.1 Neut # (Auto) 19.2 H Lymph # (Auto) 0.5 L [place] # (Auto) 0.4 Eos # (Auto) 0.0 Baso # (Auto) 0.0 Total Counted 100 Immature Gran % 0.8 Nucleated RBC % 0.0 Immature Gran # 0.16 Segmented Neutrophils 94 H Band Neutrophils 2 Lymphocytes 3 L Monocytes 1 L Nucleated RBCs # 0.00 Platelet Estimate Adequate Giant Platelets Few Immature Plt Fraction 0.0 Hypochromasia 1+ Ovalocytes Slight ABG pH ABG pCO2 ABG pO2 ABG HCO3 ABG Total CO2 ABG O2 Saturation ABG Base Excess FiO2 Sodium Potassium Chloride Carbon Dioxide Anion Gap BUN Creatinine GFR Calculation BUN/Creatinine Ratio Glucose Calculated Osmolality Lactic Acid 1.5 Calcium Magnesium Total Bilirubin AST ALT Alkaline Phosphatase Lactate Dehydrogenase Troponin I 0.096 H D C-Reactive Protein Total Protein Albumin Globulin Albumin/Globulin Ratio Random Cortisol Urine Color Urine Appearance Urine pH Ur Specific [place] Urine Protein Urine Glucose (UA) Urine Ketones Urine Blood Urine Nitrate Urine Bilirubin Urine Urobilinogen Urine Leukocytes Urine RBC Urine WBC Ur Culture Indicated? Pleural pH Pleural WBC Pleural RBC Pleural Tot Cell Ct Pleural Neutrophils Pleural Lymphocytes Pleural Monocytes Pleural Total Protein Pleural LDH Pleural Glucose Hepatitis A IgM Ab Hep Bs Antigen Hep B Core IgM Ab Hepatitis C Antibody HIV 1&2 Antigen & Ab 01/10/17 01/10/17 01/10/17 03:29 03:40 07:50 WBC RBC Hgb Hct MCV MCH MCHC RDW Plt Count MPV Neut % (Auto) Lymph % (Auto) [place] % (Auto) Eos % (Auto) Baso % (Auto) Neut # (Auto) Lymph # (Auto) [place] # (Auto) Eos # (Auto) Baso # (Auto) Total Counted Immature Gran % Nucleated RBC % Immature Gran # Segmented Neutrophils Band Neutrophils Lymphocytes Monocytes Nucleated RBCs # Platelet Estimate Giant Platelets Immature Plt Fraction Hypochromasia Ovalocytes ABG pH 7.222 L ABG pCO2 88.0 H* ABG pO2 113.0 H ABG HCO3 29.3 H ABG Total CO2 33.6 H ABG O2 Saturation 97.4 ABG Base Excess 5.4 H FiO2 28.00 Sodium 131 L Potassium 5.0 Chloride 92 L Carbon Dioxide 36 H Anion Gap 8.0 BUN 12 Creatinine 0.50 L GFR Calculation 86 BUN/Creatinine Ratio 24.00 H Glucose 120 H Calculated Osmolality 262.7 L Lactic Acid Calcium 11.5 H Magnesium 2.0 Total Bilirubin 0.70 AST 38 H ALT 51 Alkaline Phosphatase 145 H Lactate Dehydrogenase Troponin I C-Reactive Protein Total Protein 7.0 Albumin 2.3 L Globulin 4.7 H Albumin/Globulin Ratio 0.4 L Random Cortisol Urine Color Yellow Urine Appearance Slightly hazy Urine pH 6.0 Ur Specific [place] 1.026 Urine Protein Negative Urine Glucose (UA) Negative Urine Ketones Negative Urine Blood Negative Urine Nitrate Negative Urine Bilirubin Negative Urine Urobilinogen < 2.0 H Urine Leukocytes Negative Urine RBC <1 Urine WBC 2 Ur Culture Indicated? Not indicated Pleural pH Pleural WBC Pleural RBC Pleural Tot Cell Ct Pleural Neutrophils Pleural Lymphocytes Pleural Monocytes Pleural Total Protein Pleural LDH Pleural Glucose Hepatitis A IgM Ab Hep Bs Antigen Hep B Core IgM Ab Hepatitis C Antibody HIV 1&2 Antigen & Ab - EKG EKG results: interpreted by me (Sinus tachycardia incomplete right bundle branch block and pulmonary disease pattern)
--- NOTE | 2017-01-10 14:41 | Cardiothoracic Consult ---
Assessment and Plan - Time spent with patient Time spent with patient: Greater than 30 minutes (1) Pericardial effusion Status: Acute Assessment and plan: 56-year-old unfortunate female with what appears to be undiagnosed extensive malignancy involving the right lung, the right pleural cavity, the right atrium , SVC, severe ascites, possibly liver. The origin of this malignancy is unclear. I hope pleural fluid was sent for cytology. I had a very lengthy discussion with the patient, however I am afraid her cognitive status is not allowing her to fully comprehend her situation. She is cachectic, disheveled. With this extensive disease there is no surgical intervention to be offered. I think the next step for her would be palliative/ hospice care. I would also suggest medical oncology consult to see if they can offer any other opinions. In my opinion what ever the diagnosis and the origin of this disease is, it is definitely untreatable stage. The patient cognitive status as well as social status might be challenging for any future approach. I recommend hospice/ palliative care. I will sign off, please call with any questions if any arise. Current Visit: Yes History of Present Illness - Data of Consult Patient: new to practice Consult date: 01/10/17 - Consult Narrative Reason for consult: Superior vena cava syndrome History of present illness: Ms. Jones is a 56 year old female who has been having shortness of breath. The patient had a CT scan of the chest abdomen pelvis which showed extensive lesions in the right lung with complete consolidation, mass effect extending into the right atrium and SVC, right pleural effusion, ascites. The patient currently is hemodynamically stable without any complaints except some shortness of breath. The patient is cachectic. CC: Gm Harvey MD - Home Medications and Allergies Home Medications: Home Medications Medication Instructions Recorded Confirmed Type No Known Home Medications [No 01/09/17 01/09/17 History Known Home Medications] Allergies/Adverse Reactions: Allergies Allergy/AdvReac Type Severity Reaction Status Date / Time No Known Allergies Allergy Unverified 01/09/17 09:16 - Constitutional Constitutional: Present: as per HPI - EENT Eyes: Present: as per HPI Ears: Present: as per HPI - Cardiovascular Cardiovascular: Present: as per HPI - Respiratory Respiratory: Present: as per HPI - Gastrointestinal Gastrointestinal: Present: as per HPI Medical,Surgical,& Family Hx - Medical History Cardio: No history of: Aneurysm, Cardiac Dysrhythmia, Cerebrovascular Disease, Congenital Heart Disease, CHF, CAD, Hypertension, MA, Pacemaker, PVD, Valvular Heart Disease, Cardiovascular Problems Psychological: No history of: Anxiety Disorders, ADHD, Behavior Problems, Bipolar Disorder, Depression, Previous Suicide Attempt, Psychiatric/Substance Abuse Tx, Schizophrenia, Violent Behavior, Psychiatric Problems - Surgical History Abdominal Surgeries: Surgical HX of: Abdominal Surgery ("For some kind of infection") - Family History Family History: Reports;: Family Cancer, Family Heart Disease - Social History Smoking Status: Current every day smoker Frequency of Alcohol Use: Rarely Type of Drug Use: Marijuana Physical Examination Vital Signs Temp Pulse Resp BP Pulse Ox 99.0 F 106 H 16 140/124 90 L 01/09/17 09:11 01/09/17 09:11 01/09/17 09:11 01/09/17 09:11 01/09/17 09:11 General: Present: Cachectic, Other (Appears much older than her stated age with severe malnutrition and muscle loss, does not appear to fully understand the gravity of her situation,.) Neck: Present: Supple Neck Cardiac: Present: Reg Rate and Rhythm Lungs: Present: Absent Breath Sounds Neuro: Present: Cranial Nerve 2-12 Intact Abdomen: Present: Soft, Active Bowel Sounds Result/EKG - Labs CBC & BMP: 01/10/17 03:29 01/10/17 03:29 Labs: Laboratory Results - last 24 hr 01/09/17 01/09/17 01/09/17 10:45 10:45 10:45 WBC RBC Hgb Hct MCV MCH MCHC RDW Plt Count MPV Neut % (Auto) Lymph % (Auto) [place] % (Auto) Eos % (Auto) Baso % (Auto) Neut # (Auto) Lymph # (Auto) [place] # (Auto) Eos # (Auto) Baso # (Auto) Total Counted Immature Gran % Nucleated RBC % Immature Gran # Segmented Neutrophils Band Neutrophils Lymphocytes Monocytes Nucleated RBCs # Platelet Estimate Giant Platelets Immature Plt Fraction Hypochromasia Ovalocytes ABG pH ABG pCO2 ABG pO2 ABG HCO3 ABG Total CO2 ABG O2 Saturation ABG Base Excess FiO2 Sodium Potassium Chloride Carbon Dioxide Anion Gap BUN Creatinine GFR Calculation BUN/Creatinine Ratio Glucose Calculated Osmolality Lactic Acid Calcium Magnesium Total Bilirubin AST ALT Alkaline Phosphatase Lactate Dehydrogenase Troponin I C-Reactive Protein 8.48 H Total Protein Albumin Globulin Albumin/Globulin Ratio Random Cortisol 37.3 Urine Color Urine Appearance Urine pH Ur Specific [place] Urine Protein Urine Glucose (UA) Urine Ketones Urine Blood Urine Nitrate Urine Bilirubin Urine Urobilinogen Urine Leukocytes Urine RBC Urine WBC Ur Culture Indicated? Pleural pH Pleural WBC Pleural RBC Pleural Tot Cell Ct Pleural Neutrophils Pleural Lymphocytes Pleural Monocytes Pleural Total Protein Pleural LDH Pleural Glucose Hepatitis A IgM Ab Negative Hep Bs Antigen Negative Hep B Core IgM Ab Negative Hepatitis C Antibody Positive A HIV 1&2 Antigen & Ab Nonreactive 01/09/17 01/09/17 01/09/17 10:45 15:05 16:00 WBC RBC Hgb Hct MCV MCH MCHC RDW Plt Count MPV Neut % (Auto) Lymph % (Auto) [place] % (Auto) Eos % (Auto) Baso % (Auto) Neut # (Auto) Lymph # (Auto) [place] # (Auto) Eos # (Auto) Baso # (Auto) Total Counted Immature Gran % Nucleated RBC % Immature Gran # Segmented Neutrophils Band Neutrophils Lymphocytes Monocytes Nucleated RBCs # Platelet Estimate Giant Platelets Immature Plt Fraction Hypochromasia Ovalocytes ABG pH 7.314 L ABG pCO2 73.9 H* ABG pO2 53.7 L ABG HCO3 32.0 H ABG Total CO2 34.3 H ABG O2 Saturation 82.7 L ABG Base Excess 8.6 H FiO2 Sodium Potassium Chloride Carbon Dioxide Anion Gap BUN Creatinine GFR Calculation BUN/Creatinine Ratio Glucose Calculated Osmolality Lactic Acid Calcium Magnesium Total Bilirubin AST ALT Alkaline Phosphatase Lactate Dehydrogenase 239 Troponin I C-Reactive Protein Total Protein Albumin Globulin Albumin/Globulin Ratio Random Cortisol Urine Color Urine Appearance Urine pH Ur Specific [place] Urine Protein Urine Glucose (UA) Urine Ketones Urine Blood Urine Nitrate Urine Bilirubin Urine Urobilinogen Urine Leukocytes Urine RBC Urine WBC Ur Culture Indicated? Pleural pH Pleural WBC 149 Pleural RBC [address] 100 Pleural Neutrophils 20 Pleural Lymphocytes 79 Pleural Monocytes 1 Pleural Total Protein Pleural LDH Pleural Glucose Hepatitis A IgM Ab Hep Bs Antigen Hep B Core IgM Ab Hepatitis C Antibody HIV 1&2 Antigen & Ab 01/09/17 01/09/17 01/09/17 16:00 16:00 16:00 WBC RBC Hgb Hct MCV MCH MCHC RDW Plt Count MPV Neut % (Auto) Lymph % (Auto) [place] % (Auto) Eos % (Auto) Baso % (Auto) Neut # (Auto) Lymph # (Auto) [place] # (Auto) Eos # (Auto) Baso # (Auto) Total Counted Immature Gran % Nucleated RBC % Immature Gran # Segmented Neutrophils Band Neutrophils Lymphocytes Monocytes Nucleated RBCs # Platelet Estimate Giant Platelets Immature Plt Fraction Hypochromasia Ovalocytes ABG pH ABG pCO2 ABG pO2 ABG HCO3 ABG Total CO2 ABG O2 Saturation ABG Base Excess FiO2 Sodium Potassium Chloride Carbon Dioxide Anion Gap BUN Creatinine GFR Calculation BUN/Creatinine Ratio Glucose Calculated Osmolality Lactic Acid Calcium Magnesium Total Bilirubin AST ALT Alkaline Phosphatase Lactate Dehydrogenase Troponin I C-Reactive Protein Total Protein Albumin Globulin Albumin/Globulin Ratio Random Cortisol Urine Color Urine Appearance Urine pH Ur Specific [place] Urine Protein Urine Glucose (UA) Urine Ketones Urine Blood Urine Nitrate Urine Bilirubin Urine Urobilinogen Urine Leukocytes Urine RBC Urine WBC Ur Culture Indicated? Pleural pH 8.50 Pleural WBC Pleural RBC Pleural Tot Cell Ct Pleural Neutrophils Pleural Lymphocytes Pleural Monocytes Pleural Total Protein Pleural LDH 719 Pleural Glucose 69 Hepatitis A IgM Ab Hep Bs Antigen Hep B Core IgM Ab Hepatitis C Antibody HIV 1&2 Antigen & Ab 01/09/17 01/09/17 01/09/17 16:00 17:03 17:03 WBC RBC Hgb Hct MCV MCH MCHC RDW Plt Count MPV Neut % (Auto) Lymph % (Auto) [place] % (Auto) Eos % (Auto) Baso % (Auto) Neut # (Auto) Lymph # (Auto) [place] # (Auto) Eos # (Auto) Baso # (Auto) Total Counted Immature Gran % Nucleated RBC % Immature Gran # Segmented Neutrophils Band Neutrophils Lymphocytes Monocytes Nucleated RBCs # Platelet Estimate Giant Platelets Immature Plt Fraction Hypochromasia Ovalocytes ABG pH ABG pCO2 ABG pO2 ABG HCO3 ABG Total CO2 ABG O2 Saturation ABG Base Excess FiO2 Sodium Potassium Chloride Carbon Dioxide Anion Gap BUN Creatinine GFR Calculation BUN/Creatinine Ratio Glucose Calculated Osmolality Lactic Acid 1.4 Calcium Magnesium Total Bilirubin AST ALT Alkaline Phosphatase Lactate Dehydrogenase Troponin I 0.131 H C-Reactive Protein Total Protein Albumin Globulin Albumin/Globulin Ratio Random Cortisol Urine Color Urine Appearance Urine pH Ur Specific [place] Urine Protein Urine Glucose (UA) Urine Ketones Urine Blood Urine Nitrate Urine Bilirubin Urine Urobilinogen Urine Leukocytes Urine RBC Urine WBC Ur Culture Indicated? Pleural pH Pleural WBC Pleural RBC Pleural Tot Cell Ct Pleural Neutrophils Pleural Lymphocytes Pleural Monocytes Pleural Total Protein 3.6 Pleural LDH Pleural Glucose Hepatitis A IgM Ab Hep Bs Antigen Hep B Core IgM Ab Hepatitis C Antibody HIV 1&2 Antigen & Ab 01/09/17 01/09/17 01/10/17 19:59 19:59 03:29 WBC 20.2 H RBC 3.69 L Hgb 10.2 L Hct 34.6 L MCV 93.8 MCH 28 MCHC 29.5 L RDW 15.6 Plt Count 316 MPV 9.5 L Neut % (Auto) 95.1 H Lymph % (Auto) 2.3 L [place] % (Auto) 1.7 Eos % (Auto) 0.0 Baso % (Auto) 0.1 Neut # (Auto) 19.2 H Lymph # (Auto) 0.5 L [place] # (Auto) 0.4 Eos # (Auto) 0.0 Baso # (Auto) 0.0 Total Counted 100 Immature Gran % 0.8 Nucleated RBC % 0.0 Immature Gran # 0.16 Segmented Neutrophils 94 H Band Neutrophils 2 Lymphocytes 3 L Monocytes 1 L Nucleated RBCs # 0.00 Platelet Estimate Adequate Giant Platelets Few Immature Plt Fraction 0.0 Hypochromasia 1+ Ovalocytes Slight ABG pH ABG pCO2 ABG pO2 ABG HCO3 ABG Total CO2 ABG O2 Saturation ABG Base Excess FiO2 Sodium Potassium Chloride Carbon Dioxide Anion Gap BUN Creatinine GFR Calculation BUN/Creatinine Ratio Glucose Calculated Osmolality Lactic Acid 1.5 Calcium Magnesium Total Bilirubin AST ALT Alkaline Phosphatase Lactate Dehydrogenase Troponin I 0.096 H D C-Reactive Protein Total Protein Albumin Globulin Albumin/Globulin Ratio Random Cortisol Urine Color Urine Appearance Urine pH Ur Specific [place] Urine Protein Urine Glucose (UA) Urine Ketones Urine Blood Urine Nitrate Urine Bilirubin Urine Urobilinogen Urine Leukocytes Urine RBC Urine WBC Ur Culture Indicated? Pleural pH Pleural WBC Pleural RBC Pleural Tot Cell Ct Pleural Neutrophils Pleural Lymphocytes Pleural Monocytes Pleural Total Protein Pleural LDH Pleural Glucose Hepatitis A IgM Ab Hep Bs Antigen Hep B Core IgM Ab Hepatitis C Antibody HIV 1&2 Antigen & Ab 01/10/17 01/10/17 01/10/17 03:29 03:40 07:50 WBC RBC Hgb Hct MCV MCH MCHC RDW Plt Count MPV Neut % (Auto) Lymph % (Auto) [place] % (Auto) Eos % (Auto) Baso % (Auto) Neut # (Auto) Lymph # (Auto) [place] # (Auto) Eos # (Auto) Baso # (Auto) Total Counted Immature Gran % Nucleated RBC % Immature Gran # Segmented Neutrophils Band Neutrophils Lymphocytes Monocytes Nucleated RBCs # Platelet Estimate Giant Platelets Immature Plt Fraction Hypochromasia Ovalocytes ABG pH 7.222 L ABG pCO2 88.0 H* ABG pO2 113.0 H ABG HCO3 29.3 H ABG Total CO2 33.6 H ABG O2 Saturation 97.4 ABG Base Excess 5.4 H FiO2 28.00 Sodium 131 L Potassium 5.0 Chloride 92 L Carbon Dioxide 36 H Anion Gap 8.0 BUN 12 Creatinine 0.50 L GFR Calculation 86 BUN/Creatinine Ratio 24.00 H Glucose 120 H Calculated Osmolality 262.7 L Lactic Acid Calcium 11.5 H Magnesium 2.0 Total Bilirubin 0.70 AST 38 H ALT 51 Alkaline Phosphatase 145 H Lactate Dehydrogenase Troponin I C-Reactive Protein Total Protein 7.0 Albumin 2.3 L Globulin 4.7 H Albumin/Globulin Ratio 0.4 L Random Cortisol Urine Color Yellow Urine Appearance Slightly hazy Urine pH 6.0 Ur Specific [place] 1.026 Urine Protein Negative Urine Glucose (UA) Negative Urine Ketones Negative Urine Blood Negative Urine Nitrate Negative Urine Bilirubin Negative Urine Urobilinogen < 2.0 H Urine Leukocytes Negative Urine RBC <1 Urine WBC 2 Ur Culture Indicated? Not indicated Pleural pH Pleural WBC Pleural RBC Pleural Tot Cell Ct Pleural Neutrophils Pleural Lymphocytes Pleural Monocytes Pleural Total Protein Pleural LDH Pleural Glucose Hepatitis A IgM Ab Hep Bs Antigen Hep B Core IgM Ab Hepatitis C Antibody HIV 1&2 Antigen & Ab
[2017-01-10] MEDS: AZITHROMYCIN INJ 500 MG in SODIUM CHLORIDE 0.9% 250 ML IV SCH (15:46)
[2017-01-11] MEDS: methylPREDNISolone SOD SUC 40 MG/1 ML VIAL IV SCH ×3 (01:33→17:30)
[2017-01-11 03:30] LABS: Hematocrit 34.3 VOL% (35.7-47.0); Hemoglobin 10.2 GM/DL (12.0-16.0); Immature Granulocytes % 0.9 %; Immature Granulocytes Absolute 0.19 #; Lymphocytes # 0.6 10*3/uL (1.4-4.0); Lymphocytes % 2.9 % (21.3-54.2); Mean Corpuscular HGB Conc 29.7 GM/DL (32-36); Mean Corpuscular Hemoglobin 28 PG (27-34); Mean Corpuscular Volume 93.5 FL (87-102); Mean Platelet Volume 9.3 FL (9.6-12.0); Monocytes # 0.8 10*3/uL (0.11-0.8); Monocytes % 3.9 % (1.7-12.7); Neutrophils # 18.6 10*3/uL (1.4-7.4); Neutrophils % 92.3 % (38.7-73.9); Platelet Count 320 T/CUMM (130-400); Red Blood Count 3.67 MC/CUMM (3.8-5.5); Red Cell Distribution Width 15.3 % (9.3-17.3); White Blood Count 20.1 T/CUMM (4-12)
[2017-01-11 03:58] LABS: Calcium 11.2 MG/DL (8.5-10.1); Osmolality,Calculated 271.2 MOS/KG (273-304); Potassium 4.2 MMOL/L (3.5-5.1)
[2017-01-11 04:09] LABS: ABG Base Excess 11.7 MMOL/L (-2.5-2.5); ABG HCO3 39.1 MMOL/L (20-26); ABG Oxygen Saturation 97.2 % (95-100); ABG PCO2 68.8 MM HG (35-48); ABG PH 7.373 (7.35-7.45); ABG PO2 86.7 MM HG (80-95); ABG TCO2 41.3 MMOL/L (23-27)
[2017-01-11 04:58] LABS: Band Neutrophils 2 % (0-10); Lymphocytes 5 % (20-55); Platelet Estimate Normal; Segmented Neutrophils 91 % (50-85); Total Cells Counted 100
[2017-01-11] MEDS: ALBUTEROL/IPRATROPIUM 3 ML NEB RESP TX SCH ×3 (05:15→19:25)
[2017-01-11] MEDS: SODIUM CHLORIDE 0.9% 1,000 ML IV SCH ×2 (05:21→05:22)
[2017-01-11] MEDS ORDERED: MAGNESIUM HYDROXIDE SUSP 30 ML UDCUP PO PRN (06:31)
--- NOTE | 2017-01-11 07:02 | Pulmonology Progress Note ---
Pulmonary - PN: Subj Interval history: Patient is a 56-year-old white lady that is a lifelong smoker that now presents with obstructed right lung and likely has lung cancer at her right main bronchus. She does have COPD with CO2 retention. She looks like she is very sensitive to oxygen. 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 She is awake today and talking a little more. Her oxygenation has been okay and her PCO2 is better. She looks like she is breathing comfortably at present. Will proceed with a bronchoscope in the morning. Exam (Progress Note) - Constitutional Vitals: Period Temp Pulse Resp BP Sys/Singh Pulse Ox Last 24 Hr 97.1 F-97.9 F 91-108 16-35 82-112/53-73 85-100 Exam: General appearance: no acute distress, she is awake and talking and in no distress. She is very cachectic and frail looking. - Head Head exam: Present: normal inspection, normocephalic - Eye Eye exam: Present: EOMI. Absent: scleral icterus Pupils: Present: JAILYN - ENT ENT exam: Present: normal exam - Neck Neck exam: Present: other (She does have distended neck veins). Absent: lymphadenopathy, thyromegaly - Respiratory Respiratory exam: Present: accessory muscle use, decreased breath sounds (She has decreased breath sounds in the right chest). Absent: wheezes - Cardiovascular Cardiovascular exam: Present: regular rate and rhythm. Absent: gallop, systolic murmur - GI/Abdominal GI/Abdominal exam: Present: distended, firm, organomegaly (She does have a large liver), tenderness, soft - Extremities Exam Extremities exam: Absent: calf tenderness, edema - Neurological Exam Neurological exam: Present: She is awake and talking this morning. - Psychiatric Psychiatric exam: Present: normal affect - Skin Skin exam: Present: warm, dry Results - Labs CBC & BMP: 01/11/17 02:44 01/11/17 02:44 Labs: Her PO2 is 86 with a PCO2 of 68 and a pH of 7.37 - Diagnostic Findings Procedure: Chest x-ray: image reviewed by me, report reviewed by me (Chest x- ray shows an opacified right chest and no change.) Assessment and Plan (1) Atelectasis of right lung Status: Acute Assessment and plan: The patient has complete opacification of the right chest and I suspect she has a right main lesion. This is almost certainly lung cancer. Her overall outlook is very poor. Will proceed with a bronchoscope in the morning. Current Visit: Yes (2) Lung cancer Status: Chronic Assessment and plan: I suspect she has lung cancer in the right main. Will plan a bronchoscope Thursday. 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 Current Visit: Yes (3) Unintended weight loss Status: Acute Assessment and plan: The patient has been losing weight because of her suspected malignancy. Current Visit: Yes (4) Nicotine dependence Status: Acute Assessment and plan: She has a long history of nicotine dependence. Current Visit: Yes (5) COPD (chronic obstructive pulmonary disease) Status: Chronic Assessment and plan: Patient has COPD and will continue with bronchodilator therapy. She does have CO2 retention and will keep her on very minimal oxygen. She is breathing comfortably at present. Current Visit: Yes Qualifiers: COPD type: COPD with acute exacerbation Qualified Code(s): J44.1 - Chronic obstructive pulmonary disease with (acute) exacerbation
[2017-01-11] MEDS: BENZONATATE 100 MG CAPSULE PO SCH ×3 (09:19→21:33)
[2017-01-11] MEDS: NICOTINE 14 MG/24 HR PATCH TRANSDERM SCH (09:19)
[2017-01-11] MEDS: THEOPHYLLINE ER (24 HR) 400 MG CAPSULE PO SCH (09:21)
--- NOTE | 2017-01-11 09:43 | Oncology Consult Note ---
History of Present Illness History of present illness: Ms. Jones is a 56 year old female who presented with increasing dyspnea and chest pain that has been found to have extensive pathology within her chest and abdomen as described below. I have pasted a copy of the CT of her chest, abdomen and pelvis on this consult note. She tells me she has been sick for 5 or 6 weeks with increasing anorexia, dyspnea and with weight loss and weakness. Also with significant dyspnea with exertion. (1) Atelectasis of right lung The patient has complete opacification of the right chest felt to be due to lung cancer. (2) Suspected lung cancer Dr. Mercado has her scheduled for bronchoscopy on Thursday (3) Unintended weight loss Secondary to apparent malignancy (4) Nicotine dependence (5) COPD (chronic obstructive pulmonary disease) Also with a component of restrictive lung disease secondary to the pleural effusion. 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 PROCEDURE INTERPRETED AT [facility] DEPARTMENT OF RADIOLOGY Final Report Signed by: Dr. Catarina Ferro Addendum Dictated By: Catarina Ferro MD 01/09/171707 Addendum Signed By: Catarina Ferro MD 01/09/[address] of the chest, abdomen, and pelvis with intravenous contrast. No oral contrast was administered. Axial images were obtained with sagittal and coronal 2-D reconstructions. Comparison is made to a previous CT of the abdomen and pelvis without contrast dated January 09, 2017. Indication: Abdominal pain, generalized. Ascites. Large pleural effusion. Possible pulmonary malignancy. CT of the chest: There is consolidation of the entire right lung, which is heterogeneous, with lobular foci of irregular enhancement. There is a pleural effusion on the right, and a chest tube pigtail catheter has been placed in the right pleural space. There is lobular mass in the pleural space as well. 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 There is severe narrowing of the right main pulmonary artery which terminates in small significantly narrowed vessels. There is also invasion of portions of the right pulmonary veins. The thoracic aorta is of normal caliber. There is a complex pericardial effusion with pericardial thickening. There is a small left pleural effusion. There is atelectasis and a small amount of basilar edema present involving the left lung. There is extensive collateralization via the azygos vein due to the SVC obstruction. These collaterals extend into the abdomen and pelvis. No bony involvement is seen. Impression: There are findings involving the right lung including complete consolidation of the right lung, with lobular irregular enhancement, extension into the pleural space, and a thick irregular pleural effusion. There is mass effect involving the right aspect of the heart, with occlusion of the SVC and marked narrowing of the right main pulmonary trunk. There is high density pericardial effusion, and pericardial thickening. These findings are highly suspicious for malignancy. CT of abdomen and pelvis with intravenous contrast. The liver is enlarged with a length of 19 cm. No focal liver masses can be identified. The hepatic veins are dilated. There is ascites noted throughout the abdomen. There is fluid around the gallbladder. The loops of bowel are not dilated. There is no evidence of bowel obstruction. The uterus is heterogeneous but not enlarged. The kidneys are essentially normal. There is a small cyst noted on the right kidney. No evidence of ureteral obstruction. The abdominal aorta is of normal caliber with moderate plaque in its wall. No pancreatic enlargement is seen. Extensive collaterals are present within the retroperitoneum and pelvis, from a dilated azygous system. The spleen size is normal. The appendix presents a normal appearance. No definite adenopathy seen. No suspicious bony findings. Degenerative changes of the spinal column. Impression: Hepatomegaly. Possible hepatic congestion. Moderately large amount of ascites. The CT exam was performed using one or more of the following dose reduction techniques: Automated exposure control, adjustment of the mA and/or kV according to patient size, or use of iterative reconstruction technique. PROCEDURE INTERPRETED AT [facility] DEPARTMENT OF RADIOLOGY Final Report Signed by: Dr. Catarina Ferro Dictated By: Catarina Ferro MD 01/09/17 9828 Signed By: Catarina Ferro MD 01/09/17 9040 Technologist: EMMETT */* Past medical history: Allergies: No known allergies She tells me that she has been in good health all of her life although she has been homeless and is often had to walk. She wants to go. Family history: Her mother had lung cancer and from it. Her father apparently had a stroke. Social history: She has smoked fairly heavily for quite some years. Review of systems: General: She had a hard life as not had any significant illnesses until this current one. Eyes: No visual disturbances or eye disease. ENT: She has had poor dentition. No dysphagia or odynophagia or history of oral cancer. Lungs: She has had some left chest pain with respiration. No hemoptysis, chronic chest pain or even sputum production. Cardiovascular: No angina or coronary artery type pain and no history of congestive heart failure or cardiac disease. GI: She has had chronic constipation for years and has had blood on the toilet paper but no gross GI bleeding of any type otherwise. There is no melena, he hematochezia or hematemesis. : No history of kidney stones, recurrent kidney infections or hematuria. Musculoskeletal: No history of chronic arthritic or musculoskeletal problems. Neurologic: No history of seizures, convulsions or paralysis. No history of stroke. Hematologic: No history of enlarged lymph nodes or blood dyscrasias or bleeding disorders. Physical examination: General: The patient is extremely thin to the point of being cachectic and appears chronically and acutely ill. Eyes: Normal lids and conjunctivae. ENT: Poor dentition. Her hearing is normal. Her oral mucosa and pharynx are normal. Neck: No neck masses. The thyroid appears normal. Pulmonary: No chest wall pain or deformity other than some mild tenderness over the left lateral chest. Breath sounds are absent on the right side and coarse on the left side. Cardiovascular: Her heart rhythm is regular without murmur, gallop or rub. There is no jugular venous distention, clubbing or cyanosis. Abdomen: She is tender over the right upper quadrant. I cannot palpate any definite masses or organomegaly and bowel sounds are normal. Musculoskeletal: She has generalized muscle wasting without focal muscle atrophy or bone or joint deformity. Neurologic: Cranial nerves II through XII are intact. There are no focal neurologic deficits. Nodes: No submandibular, cervical, supraclavicular or axillary adenopathy. Impression: This is very likely to be stage IV lung cancer. We need to establish the cell type in order to consider treatment. Emaciation and cachexia secondary to apparent malignancy COPD Anemia, probably of chronic disease. We will await the results of the bronchoscopy tomorrow. I will order couple tumor markers. Thank you for consulting. Home Medications Medication Instructions Recorded Confirmed Type No Known Home Medications [No 01/09/17 01/09/17 History Known Home Medications] Allergies Allergy/AdvReac Type Severity Reaction Status Date / Time No Known Allergies Allergy Unverified 01/09/17 09:16 Medical,Surgical,& Family Hx - Medical History Cardio: No history of: Aneurysm, Cardiac Dysrhythmia, Cerebrovascular Disease, Congenital Heart Disease, CHF, CAD, Hypertension, MT, Pacemaker, PVD, Valvular Heart Disease, Cardiovascular Problems Psychological: No history of: Anxiety Disorders, ADHD, Behavior Problems, Bipolar Disorder, Depression, Previous Suicide Attempt, Psychiatric/Substance Abuse Tx, Schizophrenia, Violent Behavior, Psychiatric Problems - Surgical History Abdominal Surgeries: Surgical HX of: Abdominal Surgery ("For some kind of infection") - Family History Family History: Reports;: Family Cancer, Family Heart Disease - Social History Smoking Status: Current every day smoker Frequency of Alcohol Use: Rarely Type of Drug Use: Marijuana Exam - Constitutional Vitals: Period Temp Pulse Resp BP Sys/Singh Pulse Ox Last 24 Hr 97.4 F-97.9 F 91-108 13-35 87-112/53-73 87-100 Results - Labs CBC & BMP: 01/11/17 02:44 01/11/17 02:44
--- NOTE | 2017-01-11 10:33 | XRay Report ---
Portable chest Exam date: 01/11/2017 258 AM Indication: Shortness of breath, cough Comparison: Previous day at 0304 hours Findings: Cardiomediastinal contours are stable. Persistent opacification right hemithorax with no change in pigtail pleural drain placement. Small left pleural effusion persists. No acute osseous abnormalities. Visualized upper abdomen demonstrates no acute pathology. Impression: No interval change in the appearance of the chest PROCEDURE INTERPRETED AT [facility] DEPARTMENT OF RADIOLOGY Final Report Signed by: Gilson Hernandez
[2017-01-11] MEDS: ENOXAPARIN 40 MG/0.4 ML SYRINGE SUBCUT SCH (12:59)
--- NOTE | 2017-01-11 15:30 | Hospitalist Progress Note ---
Hospitalist: Subjective Interval history: 56-year-old female with history of chronic nicotine addiction admitted with shortness of breath and a complete right lung opacification suspected due to malignancy. She had a right chest tube but pulled it out today. However she is breathing comfortably. Exam - Constitutional Vitals: Period Temp Pulse Resp BP Sys/Singh Pulse Ox Last 24 Hr 97.4 F-97.9 F 95-111 13-35 92-112/53-73 89-100 Exam: General: No Acute Distress HEENT: Normocephalic, atraumatic, Extra ocular movements intact Neck: Supple, No JVD Chest: Decreased breath sounds right chest CV: S1 + S2 audible without murmur, gallop or rub Abd: Distended Ext: No edema Skin: No purpura, bruising or rash Rheumatologic: No Joint deformities Neurologic: Awake and alert Results - Labs CBC & BMP: 01/11/17 02:44 01/11/17 02:44 - Impressions Assessment and Plan: Atelectasis of right lung with complete opacification Status: Acute Assessment and plan: This is suspected to be due to underlying lung cancer. Dr. Mercado is planning a bronchoscopy on Thursday Current Visit: Yes Acute on chronic COPD exacerbation Status: Acute Assessment and plan: Stable on bronchodilator therapy Current Visit: Yes Acute on chronic hypoxemic and hypercapnic respiratory failure Status: Acute Assessment and plan: On oxygen Current Visit: Yes
[2017-01-11] MEDS: AZITHROMYCIN INJ 500 MG in SODIUM CHLORIDE 0.9% 250 ML IV SCH (16:05)
[2017-01-12] MEDS: ALBUTEROL/IPRATROPIUM 3 ML NEB RESP TX SCH ×4 (00:04→19:02)
[2017-01-12] MEDS: methylPREDNISolone SOD SUC 40 MG/1 ML VIAL IV SCH ×3 (01:34→18:03)
[2017-01-12 04:03] LABS: Pt O2 Delivery Device Ventilator
[2017-01-12 04:04] LABS: ABG Base Excess 12.6 MMOL/L (-2.5-2.5); ABG HCO3 36.3 MMOL/L (20-26); ABG Oxygen Saturation 97.4 % (95-100); ABG PH 7.362 (7.35-7.45); ABG PO2 95.4 MM HG (80-95); ABG TCO2 37.4 MMOL/L (23-27)
[2017-01-12 04:08] LABS: ABG PCO2 71.9 MM HG (35-48)
[2017-01-12 05:03] LABS: Basophils % 0.1 % (0.0-0.8); Hematocrit 31.6 VOL% (35.7-47.0); Hemoglobin 9.7 GM/DL (12.0-16.0); Immature Granulocytes % 0.7 %; Immature Granulocytes Absolute 0.13 #; Lymphocytes # 0.6 10*3/uL (1.4-4.0); Lymphocytes % 2.8 % (21.3-54.2); Mean Corpuscular HGB Conc 30.7 GM/DL (32-36); Mean Corpuscular Hemoglobin 28 PG (27-34); Mean Corpuscular Volume 91.9 FL (87-102); Mean Platelet Volume 8.8 FL (9.6-12.0); Monocytes # 0.4 10*3/uL (0.11-0.8); Monocytes % 2.2 % (1.7-12.7); Neutrophils # 18.6 10*3/uL (1.4-7.4); Neutrophils % 94.2 % (38.7-73.9); Platelet Count 314 T/CUMM (130-400); Red Blood Count 3.44 MC/CUMM (3.8-5.5); Red Cell Distribution Width 15.6 % (9.3-17.3); White Blood Count 19.8 T/CUMM (4-12)
[2017-01-12 05:31] LABS: Giant Platelets Few; Hypochromasia 1+; Lymphocytes 1 % (20-55); Platelet Estimate Adequate; Segmented Neutrophils 97 % (50-85); Total Cells Counted 100
[2017-01-12 05:35] LABS: Calcium 10.8 MG/DL (8.5-10.1); Magnesium 2.1 MG/DL (1.8-2.4); Osmolality,Calculated 267.2 MOS/KG (273-304); Potassium 4.5 MMOL/L (3.5-5.1)
[2017-01-12] MEDS: SODIUM CHLORIDE 0.9% 1,000 ML IV SCH ×2 (06:46→19:56)
[2017-01-12] MEDS ORDERED: MEPERIDINE 50 MG/1 ML VIAL IV ONE (07:00)
[2017-01-12] MEDS ORDERED: PROMETHAZINE 25 MG/1 ML VIAL IM ONE (07:00)
--- NOTE | 2017-01-12 07:04 | Pulmonology Progress Note ---
Pulmonary - PN: Subj Interval history: Patient is a 56-year-old white lady that is a lifelong smoker that now presents with obstructed right lung and likely has lung cancer at her right main bronchus. She does have COPD with CO2 retention. She looks like she is very sensitive to oxygen. 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 She is awake today and talking a little more. Her oxygenation has been okay and her PCO2 is better. She looks like she is breathing comfortably at present. She says she did rest some last night. She is not having a lot of pain. She says she is breathing okay at present. Exam (Progress Note) - Constitutional Vitals: Period Temp Pulse Resp BP Sys/Singh Pulse Ox Last 24 Hr 97.3 F-98.6 F 100-111 13-35 103-122/60-77 89-100 Exam: General appearance: no acute distress, she is awake and talking and in no distress. She is very cachectic and frail looking. She looks reasonably comfortable at present. - Head Head exam: Present: normal inspection, normocephalic - Eye Eye exam: Present: EOMI. Absent: scleral icterus Pupils: Present: JAILYN - ENT ENT exam: Present: normal exam - Neck Neck exam: Present: other (She does have distended neck veins). Absent: lymphadenopathy, thyromegaly - Respiratory Respiratory exam: Present: She has no breath sounds toward the right lung. Left lung is reasonably clear. - Cardiovascular Cardiovascular exam: Present: regular rate and rhythm. Absent: gallop, systolic murmur - GI/Abdominal GI/Abdominal exam: Present: distended, firm, organomegaly (She does have a large liver), tenderness, soft - Extremities Exam Extremities exam: Absent: calf tenderness, edema - Neurological Exam Neurological exam: Present: She is awake and talking this morning. - Psychiatric Psychiatric exam: Present: normal affect - Skin Skin exam: Present: warm, dry Results - Labs CBC & BMP: 01/12/17 04:41 01/12/17 04:41 Labs: PO2 is 95 with a PCO2 of 71 and pH of 7.36 Assessment and Plan (1) Atelectasis of right lung Status: Acute Assessment and plan: The patient has complete opacification of the right chest and I suspect she has a right main lesion. This is almost certainly lung cancer. Will proceed with a bronchoscope this morning. Current Visit: Yes (2) Lung cancer Status: Chronic Assessment and plan: I suspect she has lung cancer in the right main. 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 We will try to get a biopsy today. Current Visit: Yes (3) Unintended weight loss Status: Acute Assessment and plan: The patient has been losing weight because of her suspected malignancy. Current Visit: Yes (4) Nicotine dependence Status: Acute Assessment and plan: She has a long history of nicotine dependence. Current Visit: Yes (5) COPD (chronic obstructive pulmonary disease) Status: Chronic Assessment and plan: Patient has COPD and will continue with bronchodilator therapy. She does have CO2 retention and will keep her on very minimal oxygen. She is breathing comfortably at present. Current Visit: Yes Qualifiers: COPD type: COPD with acute exacerbation Qualified Code(s): J44.1 - Chronic obstructive pulmonary disease with (acute) exacerbation
[2017-01-12] MEDS ORDERED: LIDOCAINE 1% 20 ML VIAL MISC INJ ONE (07:30)
[2017-01-12] MEDS ORDERED: LIDOCAINE 2% VISCOUS 100 ML BOTTLE SWISH/SPIT ONE (07:30)
[2017-01-12] MEDS ORDERED: LIDOCAINE 2% 20 ML VIAL RESP TX ONE (07:30)
[2017-01-12] MEDS ORDERED: MIDAZOLAM 2 MG/2 ML VIAL IV ONE (07:30)
--- NOTE | 2017-01-12 07:41 | XRay Report ---
History: Shortness of breath Date: 01/12/2017 Study: Chest x-ray AP portable Comparison exam: 01/11/2017 The pigtail pleural drainage catheter on the right has been removed in the interval. There is continued opacification of the right lung without change. There is no pneumothorax. There is continued mild left lower lobe atelectasis and mild left pleural effusion. The left lung is otherwise well-expanded and clear. The cardiomediastinal silhouette is unchanged. Osseous structures are similar. Impression: Interval removal of the right pleural drainage catheter. Otherwise unchanged from the previous study PROCEDURE INTERPRETED AT [facility] DEPARTMENT OF RADIOLOGY Final Report Signed by: Dr. Shelia Alexander
[2017-01-12] MEDS ORDERED: FLUMAZENIL 0.5 MG/5 ML VIAL IV ONE (07:51)
[2017-01-12] MEDS ORDERED: FLUMAZENIL 1 MG/10 ML VIAL IV ONE (07:54)
--- NOTE | 2017-01-12 07:57 | Oncology Progress Note ---
Oncology Subjective PN Interval history: Case discussed with Dr. Cory Mercado. Fiberoptic bronchoscopy done. Very friable tissue that bled easily. Washings obtained but not much biopsy if any. Will await the results. She has hypercalcemia. I will order Zometa at a reduced dose today while we are waiting on the pathology report. Exam - Constitutional Vitals: Period Temp Pulse Resp BP Sys/Singh Pulse Ox Last 24 Hr 97.3 F-98.6 F 100-111 14-35 103-122/60-77 89-100 Results - Labs CBC & BMP: 01/12/17 04:41 01/12/17 04:41
--- NOTE | 2017-01-12 08:03 | Operative Note ---
Date of procedure: 01/12/17 Pre-op diagnosis: Right lung atelectasis Post-op diagnosis: other (Complete obstruction of the right main bronchus with tumor) Procedure: Patient is a 56-year-old who has opacification of her right chest. Fiberoptic bronchoscope will be done to check airway and obtain a tissue diagnosis. Timeout was performed to identify the patient. The patient is in the ICU. Preop: Demerol 50 mg, Phenergan 25 mg IM. Anesthesia: Versed 2 mg IVP, topical lidocaine. Procedure: The fiberoptic bronchoscope was passed transnasally through the vocal cords into the lungs. The bronchopulmonary segments were identified and specimens were obtained. Findings: The vocal cords trachea and demond are unremarkable. The left main with the left upper lobe and left lower lobe are all open. The right main is completely obstructed with very friable mucosal swelling and endobronchial tumor. A brushing and washings were done and sent for cytology. There was significant bleeding that was controlled with iced saline. I did not try a biopsy because of the bleeding. She would drop her O2 saturation a little but otherwise doing okay. Impression: Significant submucosal tumor and endobronchial tumor involving the right main bronchus. This is consistent with cancer. Plan: We will await biopsies before deciding further treatment. Anesthesia: conscious sedation Surgeon / Physician: Cory Mercado Estimated blood loss: other (Patient did have considerable bleeding after the brush and this was controlled with iced saline ) Specimens: other (Washings and brushings were sent for cytology) Condition: critical Disposition: ICU Results - Labs CBC & BMP: 01/12/17 04:41 01/12/17 04:41 Discharge Plan - Discharge Medications No Action No Known Home Medications [No Known Home Medications] - Follow Up or Referral - Forms/Instructions
[2017-01-12] MEDS ORDERED: SODIUM CHLORIDE 0.9% IV ONE (09:00)
[2017-01-12] MEDS ORDERED: ZOLEDRONIC ACID IV ONE (09:00)
[2017-01-12] MEDS: NICOTINE 14 MG/24 HR PATCH TRANSDERM SCH (10:36)
[2017-01-12] MEDS: THEOPHYLLINE ER (24 HR) 400 MG CAPSULE PO SCH (10:49)
[2017-01-12] MEDS: BENZONATATE 100 MG CAPSULE PO SCH ×3 (10:49→21:41)
--- NOTE | 2017-01-12 10:52 | Hospitalist Progress Note ---
Hospitalist: Subjective Interval history: 56-year-old female with history of chronic nicotine addiction admitted with shortness of breath and a complete right lung opacification suspected due to malignancy. She is status post fiberoptic bronchoscopy today. Exam - Constitutional Vitals: Period Temp Pulse Resp BP Sys/Singh Pulse Ox Last 24 Hr 97.3 F-98.6 F 96-111 14-35 88-122/49-77 87-100 Exam: General: No Acute Distress HEENT: Normocephalic, atraumatic, Extra ocular movements intact Neck: Supple, No JVD Chest: Decreased breath sounds right chest CV: S1 + S2 audible without murmur, gallop or rub Abd: Distended Ext: No edema Skin: No purpura, bruising or rash Rheumatologic: No Joint deformities Results - Labs CBC & BMP: 01/12/17 04:41 01/12/17 04:41 - Impressions Assessment and Plan: Atelectasis of right lung with complete opacification Status: Acute Assessment and plan: This is suspected to be due to underlying lung cancer. She is status post bronchoscopy 01/12 with findings: The right main was completely obstructed with very friable mucosal swelling and endobronchial tumor. Brushing and washings were done and sent for cytology. There was significant bleeding that was controlled with iced saline. Biopsy could not be done because of significant bleeding. Current Visit: Yes Acute on chronic COPD exacerbation Status: Acute Assessment and plan: Stable on bronchodilator therapy Current Visit: Yes Acute on chronic hypoxemic and hypercapnic respiratory failure Status: Acute Assessment and plan: On low-flow oxygen Current Visit: Yes Hypercalcemia of malignancy Status: Acute Assessment and plan: Received Zometa 01/12 Current Visit: Yes
--- NOTE | 2017-01-12 11:12 | Gastrointestinal Progress Note ---
Assessment and Plan (1) Hepatic congestion Status: Acute Assessment and plan: 01/12-no repeat LFTs noted for today. She is post FOB for biopsy. Findings of CT scan noted as below. Continue to monitor this time and repeat LFTs in the morning. Plan an addendum to followed by Dr. Alexander. Current Visit: Yes Gastroenterology - PN: Subj Interval history: CC: Elevated LFTs Patient is seen, post FOB this morning for her questionable right lung mass. She is still somewhat groggy from sedation unable to provide any information this morning. She was admitted on 01/09 with complaints of chest pain shortness of breath. Upon admission she was found to have elevated LFTs as well as hepatitis C positive antibodies. She has had genotyping and viral load serology pending. Patient was also felt to have hepatic congestion. Her CT of the abdomen noted to show hepatomegaly, hepatic congestion and moderate to large ascites. Patient has not had reported paracentesis in the past. She did have a thoracentesis on admission. She continues with WBCs in the 19,000. She has afebrile. Abdomen is soft, nontender. LFTs on admission were noted to be mildly elevated however have not been rechecked in 2 days. Will repeat LFTs in the morning. ROS: Denies shortness breath or chest pain Exam (Progress Note) - Constitutional Vitals: Period Temp Pulse Resp BP Sys/Singh Pulse Ox Last 24 Hr 97.3 F-98.6 F 96-111 14-29 88-122/49-77 87-100 General appearance: normal weight, no acute distress - Head Head exam: Present: normal inspection, normocephalic - Eye Eye exam: Present: other (Lids and conjunctivae are unremarkable). Absent: scleral icterus - ENT ENT exam: Present: normal exam, normal oropharynx - Neck Neck exam: Present: normal inspection - Respiratory Respiratory exam: Present: clear to auscultation bilaterally. Absent: rales, rhonchi, wheezes - Cardiovascular Cardiovascular exam: Present: regular rate and rhythm. Absent: diastolic murmur , JVD, systolic murmur - GI/Abdominal GI/Abdominal exam: Present: normal bowel sounds, soft. Absent: ascites, distended, mass, organomegaly, tenderness - Extremities Exam Extremities exam: Present: normal inspection, full ROM - Back Exam Back exam: Present: normal inspection - Neurological Exam Neurological exam: Present: alert, oriented X3 - Psychiatric Psychiatric exam: Present: normal affect, normal mood - Skin Skin exam: Present: normal color, warm, dry Results - Labs CBC & BMP: 01/12/17 04:41 01/12/17 04:41 Lab Results: I have reviewed the past 24 hour labs
[2017-01-12] MEDS: ENOXAPARIN 40 MG/0.4 ML SYRINGE SUBCUT SCH (11:59)
[2017-01-12] MEDS: ZINC OXIDE PASTE 113 GM TUBE TOP SCH ×2 (11:59→21:43)
[2017-01-12] MEDS: AZITHROMYCIN INJ 500 MG in SODIUM CHLORIDE 0.9% 250 ML IV SCH (16:52)
[2017-01-13] MEDS: ALBUTEROL/IPRATROPIUM 3 ML NEB RESP TX SCH ×4 (00:38→19:48)
[2017-01-13] MEDS: methylPREDNISolone SOD SUC 40 MG/1 ML VIAL IV SCH ×3 (01:33→17:39)
[2017-01-13 04:16] LABS: Basophils % 0.1 % (0.0-0.8); Hematocrit 32.9 VOL% (35.7-47.0); Hemoglobin 9.7 GM/DL (12.0-16.0); Immature Granulocytes % 0.6 %; Lymphocytes # 0.5 10*3/uL (1.4-4.0); Mean Corpuscular HGB Conc 29.5 GM/DL (32-36); Mean Corpuscular Hemoglobin 28 PG (27-34); Monocytes # 0.7 10*3/uL (0.11-0.8); Monocytes % 4.4 % (1.7-12.7); Neutrophils # 15.6 10*3/uL (1.4-7.4); Neutrophils % 91.9 % (38.7-73.9); Platelet Count 299 T/CUMM (130-400); Red Cell Distribution Width 15.9 % (9.3-17.3)
[2017-01-13] MEDS: MORPHINE 2 MG/1 ML SYRINGE IV PRN (04:31)
[2017-01-13 04:50] LABS: Alanine Aminotransferase 40 U/L (13-56); Albumin 2.4 G/DL (3.4-5.0); Alkaline Phosphatase 120 U/L (45-117); Aspartate Amino Transferase 27 U/L (0-37); Bilirubin,Total < 0.39 MG/DL (0.2-1.0); Blood Urea Nitrogen 19 MG/DL (7-18); Calcium 10.5 MG/DL (8.5-10.1); Glucose 137 MG/DL (74-106); Osmolality,Calculated 280.5 MOS/KG (273-304); Sodium 139 MMOL/L (136-145); Total Protein 6.7 G/DL (6.4-8.3)
[2017-01-13 05:17] LABS: Band Neutrophils 2 % (0-10); Hypochromasia 2+; Lymphocytes 5 % (20-55); Metamyelocytes 1 %; Platelet Estimate Normal; Segmented Neutrophils 87 % (50-85); Total Cells Counted 100
[2017-01-13 05:18] LABS: Anisocytosis Slight; Macrocytosis Slight
--- NOTE | 2017-01-13 07:13 | Oncology Progress Note ---
Oncology Subjective PN Interval history: Apparent metastatic lung cancer: Cytologies are pending. Apparent metastatic lung cancer Hypercalcemia: The serum calcium today is 10.5, down from 10.8 yesterday. Anemia: Hemoglobin is 9.7. She is awake and alert and sitting on the bedside today. Exam - Constitutional Vitals: Period Temp Pulse Resp BP Sys/Singh Pulse Ox Last 24 Hr 97.1 F-98.6 F 95-115 13-36 82-114/47-77 87-99 Results - Labs CBC & BMP: 01/13/17 03:20 01/13/17 03:20
--- NOTE | 2017-01-13 07:20 | Pulmonology Progress Note ---
Pulmonary - PN: Subj Interval history: Patient is a 56-year-old white lady that is a lifelong smoker that now presents with obstructed right lung and likely has lung cancer at her right main bronchus. She does have COPD with CO2 retention. She looks like she is very sensitive to oxygen. 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 Yesterday on her bronchoscope the right main bronchus is completely obstructed with tumor. She has not had any further bleeding and she is breathing okay. Hopefully we got an answer on cytologies. She can probably move to a regular room now. Exam (Progress Note) - Constitutional Vitals: Period Temp Pulse Resp BP Sys/Singh Pulse Ox Last 24 Hr 97.1 F-98.6 F 95-115 13-36 82-114/47-77 87-99 Exam: General appearance: no acute distress, she is awake and talking and in no distress. She is very cachectic and frail looking. She looks reasonably comfortable at present. - Head Head exam: Present: normal inspection, normocephalic - Eye Eye exam: Present: EOMI. Absent: scleral icterus Pupils: Present: JAILYN - ENT ENT exam: Present: normal exam - Neck Neck exam: Present: other (She does have distended neck veins). Absent: lymphadenopathy, thyromegaly - Respiratory Respiratory exam: Present: She has no breath sounds toward the right lung. Left lung is reasonably clear. - Cardiovascular Cardiovascular exam: Present: regular rate and rhythm. Absent: gallop, systolic murmur - GI/Abdominal GI/Abdominal exam: Present: distended, firm, organomegaly (She does have a large liver), tenderness, soft - Extremities Exam Extremities exam: Absent: calf tenderness, edema. She has no signs of phlebitis. - Neurological Exam Neurological exam: Present: She is awake and talking this morning. She moves her extremities okay. - Psychiatric Psychiatric exam: Present: normal affect - Skin Skin exam: Present: warm, dry Results - Labs CBC & BMP: 01/13/17 03:20 01/13/17 03:20 Assessment and Plan (1) Atelectasis of right lung Status: Acute Assessment and plan: The patient has obstruction of the right main bronchus with tumor. She had considerable bleeding during the bronchoscope. She will need chemotherapy and radiation or comfort care. Current Visit: Yes (2) Lung cancer Status: Chronic Assessment and plan: I suspect she has lung cancer in the right main. 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 We were able to get cytology from brushings and washings. Will check on the results today. Current Visit: Yes (3) Unintended weight loss Status: Acute Assessment and plan: The patient has been losing weight because of her suspected malignancy. Current Visit: Yes (4) Nicotine dependence Status: Acute Assessment and plan: She has a long history of nicotine dependence. Current Visit: Yes (5) COPD (chronic obstructive pulmonary disease) Status: Chronic Assessment and plan: Patient has COPD and will continue with bronchodilator therapy. She does have CO2 retention and will keep her on very minimal oxygen. She is breathing comfortably at present. She can move to a regular room from my standpoint. Current Visit: Yes Qualifiers: COPD type: COPD with acute exacerbation Qualified Code(s): J44.1 - Chronic obstructive pulmonary disease with (acute) exacerbation
[2017-01-13] MEDS: BENZONATATE 100 MG CAPSULE PO SCH ×3 (08:26→20:29)
[2017-01-13] MEDS: THEOPHYLLINE ER (24 HR) 400 MG CAPSULE PO SCH (08:26)
[2017-01-13] MEDS: NICOTINE 14 MG/24 HR PATCH TRANSDERM SCH (08:27)
[2017-01-13] MEDS: ZINC OXIDE PASTE 113 GM TUBE TOP SCH ×2 (08:30→20:29)
--- NOTE | 2017-01-13 09:41 | Gastrointestinal Progress Note ---
Assessment and Plan (1) Hepatic congestion Status: Acute Assessment and plan: 01/13-LFTs trended down to normal limits with elevated alkaline phosphatase. Tolerating diet at this time. Continue to monitor. Plan an addendum to followed by Dr. Alexander. 01/12-no repeat LFTs noted for today. She is post FOB for biopsy. Findings of CT scan noted as below. Continue to monitor this time and repeat LFTs in the morning. Plan an addendum to followed by Dr. Alexander. Current Visit: Yes Gastroenterology - PN: Subj Interval history: CC: Elevated LFTs Patient is seen, awake and alert sitting up eating breakfast. She has no complaints of pain at this time. She denies any nausea vomiting as well and seems to be tolerating her breakfast. Her LFTs have improved and are normal limits with an alkaline phosphatase of 120. Her weights are unchanged at this time. H&H is stable with WBCs down slightly at 17,000. She is afebrile. Abdomen is soft, nontender. ROS: Denies shortness of breath or chest pain Exam (Progress Note) - Constitutional Vitals: Period Temp Pulse Resp BP Sys/Singh Pulse Ox Last 24 Hr 97.1 F-98.6 F 95-115 13-36 82-119/47-77 92-99 - Other Additional findings: General appearance: normal weight, no acute distress - Head Head exam: Present: normal inspection, normocephalic - Eye Eye exam: Present: other (Lids and conjunctivae are unremarkable). Absent: scleral icterus - ENT ENT exam: Present: normal exam, normal oropharynx - Neck Neck exam: Present: normal inspection - Respiratory Respiratory exam: Present: clear to auscultation bilaterally. Absent: rales, rhonchi, wheezes - Cardiovascular Cardiovascular exam: Present: regular rate and rhythm. Absent: diastolic murmur , JVD, systolic murmur - GI/Abdominal GI/Abdominal exam: Present: normal bowel sounds, soft. Absent: ascites, distended, mass, organomegaly, tenderness - Extremities Exam Extremities exam: Present: normal inspection, full ROM - Back Exam Back exam: Present: normal inspection - Neurological Exam Neurological exam: Present: alert, oriented X3 - Psychiatric Psychiatric exam: Present: normal affect, normal mood - Skin Skin exam: Present: normal color, warm, dry Results - Labs CBC & BMP: 09/26/17 03:20 01/13/17 03:20 Lab Results: I have reviewed the past 24 hour labs
--- NOTE | 2017-01-13 10:06 | Hospitalist Progress Note ---
Hospitalist: Subjective Interval history: 56-year-old female with history of chronic nicotine addiction admitted with shortness of breath and a complete right lung opacification suspected due to malignancy. She is breathing better. Exam - Constitutional Vitals: Period Temp Pulse Resp BP Sys/Singh Pulse Ox Last 24 Hr 97.1 F-98.6 F 95-115 13-36 82-119/47-77 92-99 Exam: General: No Acute Distress HEENT: Normocephalic, atraumatic, Extra ocular movements intact Neck: Supple, No JVD Chest: Decreased breath sounds right chest CV: S1 + S2 audible without murmur, gallop or rub Abd: Distended Ext: No edema Skin: No purpura, bruising or rash Rheumatologic: No Joint deformities Results - Labs CBC & BMP: 01/13/17 03:20 01/13/17 03:20 - Impressions Assessment and Plan: Atelectasis of right lung with complete opacification Status: Acute Assessment and plan: This is suspected to be due to underlying lung cancer. She is status post bronchoscopy 01/12 with findings: The right main was completely obstructed with very friable mucosal swelling and endobronchial tumor. Brushing and washings were done and sent for cytology. There was significant bleeding that was controlled with iced saline. Biopsy could not be done because of significant bleeding. Current Visit: Yes Acute on chronic COPD exacerbation Status: Acute Assessment and plan: Stable on bronchodilator therapy Current Visit: Yes Acute on chronic hypoxemic and hypercapnic respiratory failure Status: Acute Assessment and plan: On low-flow oxygen Current Visit: Yes Hypercalcemia of malignancy Status: Acute Assessment and plan: Received Zometa 01/12, Ca is improving Current Visit: Yes Transfer to floor from ICU today.
[2017-01-13] MEDS: ENOXAPARIN 40 MG/0.4 ML SYRINGE SUBCUT SCH (11:59)
--- NOTE | 2017-01-13 12:15 | Pathology Report from [facility] ---
[facility] [place] ACCESSION # : [id number] PATIENT NAME : Anastasiya Jones ORDERING DR : Gurpreet Sanchez MD CLINICAL HX: Right Pleural Effusion POST-OP DX: Same SPECIMEN INFO: Fluid,Pleural,Right - 5 mls dark yellow, hazy CLASS: I CLASS COMMENTS: No atypical cells seen.CELL BLOCK: Same. CLASS LEGEND: CLASS 0 Material inadequate for diagnosis because of (see comment) CLASS I Absence of atypical or abnormal cells CLASS II Atypical Cytology but no evidence of malignancy CLASS III Cytology suggestive of but not conclusive for malignancy CLASS IV Cytology strongly suggestive of malignancy CLASS V Cytology conclusive for malignancy COLLECTED DATE: 01/12/2017 [facility] REPORT DATE: 01/13/2017 ELECTRONICALLY SIGNED BY: Nick Abreu M.D. 01/13/2017 - 10:47:05 MTDArt
--- NOTE | 2017-01-13 12:16 | Pathology Report from [facility] ---
[facility] [place] ACCESSION # : [id number] PATIENT NAME : Anastasiya Jones ORDERING DR : SILVIA BATRON MD CLINICAL HX: COPD, Right Lung Cancer POST-OP DX: Same SPECIMEN INFO: Brushing,Bronchial,RightMainstem - 1 brush (Received in Cytol[facility]) CLASS: V CLASS COMMENTS: Squamous cell carcinoma.CELL BLOCK: Same. CLASS LEGEND: CLASS 0 Material inadequate for diagnosis because of (see comment) CLASS I Absence of atypical or abnormal cells CLASS II Atypical Cytology but no evidence of malignancy CLASS III Cytology suggestive of but not conclusive for malignancy CLASS IV Cytology strongly suggestive of malignancy CLASS V Cytology conclusive for malignancy COLLECTED DATE: 01/12/2017 [facility] REPORT DATE: 01/13/2017 ELECTRONICALLY SIGNED BY: Nick Abreu M.D. 01/13/2017 - 10:47:12 MTDD
--- NOTE | 2017-01-13 12:16 | Pathology Report from [facility] ---
[facility] [place] ACCESSION # : [id number] PATIENT NAME : Anastasiya Jones ORDERING DR : SILVIA BARTON MD CLINICAL HX: COPD, Right Lung Cancer POST-OP DX: Same SPECIMEN INFO: Washing,Bronchial,RightMainstem - 20 mls bloody, thick, cloudy CLASS: V CLASS COMMENTS: Squamous cell carcinoma.CELL BLOCK: Same. CLASS LEGEND: CLASS 0 Material inadequate for diagnosis because of (see comment) CLASS I Absence of atypical or abnormal cells CLASS II Atypical Cytology but no evidence of malignancy CLASS III Cytology suggestive of but not conclusive for malignancy CLASS IV Cytology strongly suggestive of malignancy CLASS V Cytology conclusive for malignancy COLLECTED DATE: 01/12/2017 [facility] REPORT DATE: 01/13/2017 ELECTRONICALLY SIGNED BY: Nick Abreu M.D. 01/13/2017 - 10:47:09 MTDD
[2017-01-13 14:40] LABS: Procalcitonin, S 0.15 ng/mL (<=0.15)
[2017-01-14] MEDS: ALBUTEROL/IPRATROPIUM 3 ML NEB RESP TX SCH ×4 (00:17→19:31)
[2017-01-14] MEDS: methylPREDNISolone SOD SUC 40 MG/1 ML VIAL IV SCH ×3 (02:25→19:11)
[2017-01-14 05:17] LABS: Basophils % 0.1 % (0.0-0.8); Hematocrit 33.6 VOL% (35.7-47.0); Hemoglobin 10.1 GM/DL (12.0-16.0); Immature Granulocytes % 0.9 %; Immature Granulocytes Absolute 0.16 #; Lymphocytes # 0.6 10*3/uL (1.4-4.0); Lymphocytes % 3.1 % (21.3-54.2); Mean Corpuscular HGB Conc 30.1 GM/DL (32-36); Mean Corpuscular Hemoglobin 28 PG (27-34); Mean Corpuscular Volume 92.8 FL (87-102); Mean Platelet Volume 8.8 FL (9.6-12.0); Monocytes # 0.7 10*3/uL (0.11-0.8); Neutrophils # 17.1 10*3/uL (1.4-7.4); Neutrophils % 91.9 % (38.7-73.9); Platelet Count 272 T/CUMM (130-400); Red Blood Count 3.62 MC/CUMM (3.8-5.5); Red Cell Distribution Width 15.9 % (9.3-17.3); White Blood Count 18.6 T/CUMM (4-12)
[2017-01-14 06:03] LABS: Albumin 2.5 G/DL (3.4-5.0); Bilirubin,Total 0.5 MG/DL (0.2-1.0); Calcium 9.6 MG/DL (8.5-10.1); Osmolality,Calculated 275.8 MOS/KG (273-304); Potassium 3.8 MMOL/L (3.5-5.1); Total Protein 6.5 G/DL (6.4-8.3)
[2017-01-14 06:40] LABS: Band Neutrophils 6 % (0-10); Lymphocytes 3 % (20-55); Segmented Neutrophils 91 % (50-85); Total Cells Counted 100
[2017-01-14 06:41] LABS: Hypochromasia 2+; Microcytosis Slight; Platelet Estimate Adequate
--- NOTE | 2017-01-14 07:34 | Oncology Progress Note ---
Oncology Subjective PN Interval history: Pathology reports have returned and the patient has squamous cell lung cancer. This explains her hypercalcemia. 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 I will be discussing palliative chemotherapy with her. We need to arrange for a Mediport catheter placement eventually but I am going to request a PICC line initially if she agrees to the chemotherapy. I have already given her information from [facility] on non-small cell stage IV lung cancer as well as Abraxane and carboplatin. I gave her a limited amount of information today on lung cancer and its treatment. We will give her the opportunity to read about it and if we could possibly do it, we will proceed with chemotherapy as early as tomorrow. She has some home issues that need to be checked into. I am not sure she has good transportation on a regular basis. The chemotherapy that I plan to initially of is given 1 day every 3 weeks and takes approximately 2-3 hours to give it the most. This is advanced disease and she is critically ill and her long-term prognosis is poor. The likelihood of a cure is extremely low and I have explained this to her. I will also be considering the possibility of treating her with Alimta, carboplatin and Keytruda but I do not think we can accomplish this in patient and the patient would have to be on folic acid and B12 for at least a week prior to instituting that combination chemotherapy. I think is more prudent to proceed with chemotherapy as soon as possible and hope for a good response with the combination of already mentioned (Abraxane and carboplatin). Exam - Constitutional Vitals: Period Temp Pulse Resp BP Sys/Singh Pulse Ox Last 24 Hr 96.9 F-98.1 F 100-115 18-33 97-152/55-76 89-96 Results - Labs CBC & BMP: 01/14/17 04:28 01/14/17 04:28
[2017-01-14] MEDS: ZINC OXIDE PASTE 113 GM TUBE TOP SCH ×2 (09:12→20:53)
--- NOTE | 2017-01-14 09:44 | Hospitalist Progress Note ---
Assessment and Plan (1) Metastatic lung cancer (metastasis from lung to other site) Status: Acute Assessment and plan: Squamous type. Oncology is seeing, follow recommendations. Current Visit: Yes (2) COPD exacerbation Status: Acute Assessment and plan: Stable on bronchodilator therapy and antibiotics Current Visit: Yes (3) Hypercalcemia of malignancy Status: Acute Assessment and plan: Received Zometa 01/12, Ca is improving Current Visit: Yes (4) Acute on chronic respiratory failure with hypoxia and hypercapnia Status: Acute Assessment and plan: On low-flow oxygen Current Visit: Yes Hospitalist: Subjective Interval history: 56yr old lady with newly diagnosed metastatic squamous lung cancer. Oncology is following. This am, she had no new complaints. Exam - Constitutional Vitals: Period Temp Pulse Resp BP Sys/Singh Pulse Ox Last 24 Hr 96.9 F-98.1 F 97-115 18-33 100-152/55-89 89-96 General appearance: no acute distress - Head Head exam: Present: normal inspection - Respiratory Respiratory exam: Present: clear to auscultation bilaterally - Cardiovascular Cardiovascular exam: Present: regular rate and rhythm - GI/Abdominal GI/Abdominal exam: Present: normal bowel sounds - Extremities Exam Extremities exam: Present: normal inspection Results - Labs CBC & BMP: 01/14/17 04:28 01/14/17 04:28
--- NOTE | 2017-01-14 12:18 | History and Physical Update ---
History and Physical Update - History and Physical H&P was reviewed, the patient examined and there: are no changes in the patients condition since last H&P was completed. - Physical Exam Mental Status: alert and oriented Heart: regular rate and rhythm Lung: clear to auscultation Abdomen: other (Distended with ascites, nontender) Vitals: within normal limits
--- NOTE | 2017-01-14 13:17 | Operative Note ---
Date of procedure: 01/14/17 Pre-op diagnosis: Abdominal distention, ascites Procedure: Procedure: Attempted paracentesis (no fluid obtained) Brief clinical abstract: Patient is a 56-year-old female noted to have elevated liver tests with positive hepatitis C serology. She has been diagnosed with squamous cell carcinoma of the lung with an endobronchial tumor this admission. Previous imaging several days ago was notable for ascites. She has complained some of abdominal distention and early satiety. Procedure findings: After informed consent was obtained, patient was placed in supine position. Left lower quadrant of the abdomen was prepped in sterile manner. 5 cc of 1% lidocaine was injected subcutaneously down to the level of the peritoneum. 14-gauge one-point inch catheter was inserted into the peritoneal space. Very minimal amount of fluid, 1-2 cc, was obtained. She was repositioned into the left lateral decubitus position and still no fluid was noted with aspiration. A dressing was applied to the site. She appeared to tolerate the procedure well. Impression: No significant ascites fluid present Recommendations: Follow clinically for now. If recurrent abdominal distention, would obtain ultrasound for targeted paracentesis. Anesthesia: local Surgeon / Physician: Jose Elias Alexander Estimated blood loss: minimal Specimens: none sent Condition: stable Disposition: no change Results - Labs CBC & BMP: 01/14/17 04:28 01/14/17 04:28 Discharge Plan - Discharge Medications No Action No Known Home Medications [No Known Home Medications] - Follow Up or Referral - Forms/Instructions
[2017-01-14] MEDS: SODIUM CHLORIDE 0.9% 1,000 ML IV SCH ×2 (14:12→19:01)
--- NOTE | 2017-01-14 14:14 | Pulmonology Progress Note ---
Pulmonary - PN: Subj Interval history: Patient is a 56-year-old white lady that is a lifelong smoker that now presents with obstructed right lung and likely has lung cancer at her right main bronchus. She does have COPD with CO2 retention. She looks like she is very sensitive to oxygen. 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 Yesterday on her bronchoscope the right main bronchus is completely obstructed with tumor. She has not had any further bleeding and she is breathing okay. Her cytology did come back squamous cell cancer. She is going to start chemotherapy soon. Her breathing is stable at present Exam (Progress Note) - Constitutional Vitals: Period Temp Pulse Resp BP Sys/Singh Pulse Ox Last 24 Hr 96.9 F-97.7 F 97-115 18-23 118-152/60-89 89-98 Exam: General appearance: no acute distress, she is awake and talking and in no distress. She is very cachectic and frail looking. She looks reasonably comfortable at present. - Head Head exam: Present: normal inspection, normocephalic - Eye Eye exam: Present: EOMI. Absent: scleral icterus Pupils: Present: JAILYN - ENT ENT exam: Present: normal exam - Neck Neck exam: Present: other (She does have distended neck veins). Absent: lymphadenopathy, thyromegaly - Respiratory Respiratory exam: Present: She has no breath sounds toward the right lung. Left lung is reasonably clear. - Cardiovascular Cardiovascular exam: Present: regular rate and rhythm. Absent: gallop, systolic murmur - GI/Abdominal GI/Abdominal exam: Present: distended, firm, organomegaly (She does have a large liver), tenderness, soft - Extremities Exam Extremities exam: Absent: calf tenderness, edema. She has no signs of phlebitis. - Neurological Exam Neurological exam: Present: She is awake and talking this morning. She moves her extremities okay. - Psychiatric Psychiatric exam: Present: normal affect - Skin Skin exam: Present: warm, dry Results - Labs CBC & BMP: 01/14/17 04:28 01/14/17 04:28 Assessment and Plan (1) Atelectasis of right lung Status: Acute Assessment and plan: The patient has obstruction of the right main bronchus with tumor. Cytology is consistent with squamous cell cancer. She will start chemotherapy soon. Current Visit: Yes (2) Lung cancer Status: Chronic Assessment and plan: I suspect she has lung cancer in the right main. 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 Cytology is consistent with squamous cell cancer. Current Visit: Yes (3) Unintended weight loss Status: Acute Assessment and plan: The patient has been losing weight because of her suspected malignancy. Current Visit: Yes (4) Nicotine dependence Status: Acute Assessment and plan: She has a long history of nicotine dependence. Current Visit: Yes (5) COPD (chronic obstructive pulmonary disease) Status: Chronic Assessment and plan: Patient has COPD and will continue with bronchodilator therapy. She does have CO2 retention and will keep her on very minimal oxygen. She is breathing comfortably at present. She is resting okay. Current Visit: Yes Qualifiers: COPD type: COPD with acute exacerbation Qualified Code(s): J44.1 - Chronic obstructive pulmonary disease with (acute) exacerbation
[2017-01-14] MEDS: THEOPHYLLINE ER (24 HR) 400 MG CAPSULE PO SCH (14:17)
[2017-01-14] MEDS: AZITHROMYCIN 250 MG TABLET PO SCH (14:17)
[2017-01-14] MEDS: NICOTINE 14 MG/24 HR PATCH TRANSDERM SCH (14:17)
[2017-01-14] MEDS: BENZONATATE 100 MG CAPSULE PO SCH ×3 (14:17→20:52)
[2017-01-14] MEDS: ENOXAPARIN 40 MG/0.4 ML SYRINGE SUBCUT SCH (17:10)
--- NOTE | 2017-01-14 19:37 | Nuclear Medicine Report ---
Whole body bone scan January 14, 2017 at 2:50 PM Indication: Squamous cell cancer with hypercalcemia Comparison images not available Technique: Whole body planar imaging was performed after demonstration of 30 mCi technetium 99 MDP Findings: No abnormal uptake within the appendicular or axial skeleton to suggest metastasis. Normal accumulation within the urinary bladder. Impression: Normal bone scan PROCEDURE INTERPRETED AT [facility] DEPARTMENT OF RADIOLOGY Final Report Signed by: Brad Hernandez MD
[2017-01-15] MEDS: ALBUTEROL/IPRATROPIUM 3 ML NEB RESP TX SCH ×4 (00:22→20:11)
[2017-01-15] MEDS: methylPREDNISolone SOD SUC 40 MG/1 ML VIAL IV SCH ×3 (01:08→18:01)
[2017-01-15 05:25] LABS: Basophils % 0.1 % (0.0-0.8); Hematocrit 30.7 VOL% (35.7-47.0); Hemoglobin 9.3 GM/DL (12.0-16.0); Immature Granulocytes % 0.7 %; Immature Granulocytes Absolute 0.12 #; Lymphocytes # 0.5 10*3/uL (1.4-4.0); Lymphocytes % 2.6 % (21.3-54.2); Mean Corpuscular HGB Conc 30.3 GM/DL (32-36); Mean Corpuscular Hemoglobin 28 PG (27-34); Mean Corpuscular Volume 92.7 FL (87-102); Mean Platelet Volume 9.2 FL (9.6-12.0); Monocytes # 0.4 10*3/uL (0.11-0.8); Monocytes % 2.1 % (1.7-12.7); Neutrophils # 16.6 10*3/uL (1.4-7.4); Neutrophils % 94.5 % (38.7-73.9); Platelet Count 240 T/CUMM (130-400); Red Blood Count 3.31 MC/CUMM (3.8-5.5); White Blood Count 17.5 T/CUMM (4-12)
[2017-01-15 05:49] LABS: Giant Platelets Few; Hypochromasia 1+; Lymphocytes 3 % (20-55); Microcytosis Slight; Ovalocytes Slight; Platelet Estimate Adequate; Segmented Neutrophils 94 % (50-85); Total Cells Counted 100
[2017-01-15 05:57] LABS: Albumin 2.3 G/DL (3.4-5.0); Bilirubin,Total 0.8 MG/DL (0.2-1.0); Calcium 8.7 MG/DL (8.5-10.1); Osmolality,Calculated 278.7 MOS/KG (273-304); Potassium 4.3 MMOL/L (3.5-5.1); Total Protein 6.2 G/DL (6.4-8.3)
--- NOTE | 2017-01-15 07:49 | Oncology Progress Note ---
Oncology Subjective PN Interval history: Patient with apparent stage IV squamous cell carcinoma of the lung due to chest wall invasion and malignant pleural effusions. We are working on getting this patient third constitution party coverage. Her illness is complicated by hypercalcemia. We are getting a PICC line placed today. Her bone scan is negative for bone metastases. I am proceeding with chemotherapy today. He will consist of: Dexamethasone 20 mg IV today Kytril 1 mg IV today and again in 24 and 48 hours Benadryl 50 mg IV today Pepcid 40 mg IV today Abraxane 140 mg IV over 30 minutes Carboplatin 500 mg IV over 1 hour This chemotherapy is repeated every 3 weeks and the protocol calls for the Abraxane to be repeated on day 8 and day 15. However, it is my experience that very few patients can tolerate this. This is a reduced dose of both the Abraxane and carboplatin. I am reducing the dose modestly because of the patient's emaciation and cachexia and malnutrition. I will consider increasing the dose with course #2. I will not discount the possibility of repeating the Abraxane in a week but most patients cannot tolerate this and in my experience, very few can tolerate day 15 of Abraxane. Today she is oriented and alert and in no acute distress. She has no focal neurologic deficits. She is very talkative and I am not sure she heard everything that I told her about the chemotherapy and its side effects. We will continue to work on third constitution party coverage. She has none. Exam - Constitutional Vitals: Period Temp Pulse Resp BP Sys/Singh Pulse Ox Last 24 Hr 97.4 F-98.4 F 97-116 16-20 112-127/59-89 93-98 Results - Labs CBC & BMP: 01/15/17 04:56 01/15/17 04:56
[2017-01-15] MEDS ORDERED: DEXAMETHASONE INJ 20 MG in SODIUM CHLORIDE 0.9% 50 ML IV ONE (08:00)
--- NOTE | 2017-01-15 08:26 | Post Interventional Procedure ---
Pre-op diagnosis: Lung cancer, chemo requirement Post-op diagnosis: same Procedure: PICC RUE Flouroscopy: 0.2 min Radiologist: Conrad Ramos Anesthesia: local Specimens: none sent Estimated blood loss: none Complications: none Condition: stable Assessment and Plan - Time spent with patient Time spent with patient: Less than 30 minutes
[2017-01-15] MEDS ORDERED: PACLITAXEL IV ONE (08:30)
[2017-01-15] MEDS ORDERED: CARBOplatin 500 MG in SODIUM CHLORIDE 0.9% 250 ML IV ONE (08:30)
[2017-01-15] MEDS ORDERED: diphenhydrAMINE 50 MG/1 ML VIAL IV SCH (08:30)
[2017-01-15] MEDS ORDERED: FAMOTIDINE INJ 40 MG in SODIUM CHLORIDE 0.9% 100 ML IV SCH (08:30)
[2017-01-15] MEDS ORDERED: ALBUMIN IV ONE (08:30)
--- NOTE | 2017-01-15 09:22 | Gastrointestinal Progress Note ---
Assessment and Plan (1) Hepatic congestion Status: Acute Assessment and plan: 01/15-LFTs unremarkable. No changes in weight at this time. Tolerating diet well. PICC line placement this morning for chemotherapy initiation. Plan an addendum to followed by Dr. Alexander. 01/13-LFTs trended down to normal limits with elevated alkaline phosphatase. Tolerating diet at this time. Continue to monitor. Plan an addendum to followed by Dr. Alexander. 01/12-no repeat LFTs noted for today. She is post FOB for biopsy. Findings of CT scan noted as below. Continue to monitor this time and repeat LFTs in the morning. Plan an addendum to followed by Dr. Alexander. Current Visit: Yes Gastroenterology - PN: Subj Interval history: CC: Ascites, abdominal distention Patient is seen awake and alert sitting up in bed with family at bedside. She has a good appetite is tolerating her diet well at present time. She denies any abdominal pain, nausea vomiting. Noted that she was for paracentesis on yesterday however inability to obtain any ascitic fluid was noted. She denies any discomfort at this time. She is just returned from having PICC line placement and she is noted to start chemotherapy today. Abdomen is soft, nontender. H&H is down slightly at 01/17 without overt bleeding. Weight is unchanged as well. ROS: Denies shortness of breath or chest pain Exam (Progress Note) - Constitutional Vitals: Period Temp Pulse Resp BP Sys/Singh Pulse Ox Last 24 Hr 97.4 F-98.4 F 105-116 16-20 112-118/59-76 94-100 General appearance: normal weight, no acute distress - Head Head exam: Present: normal inspection, normocephalic - Eye Eye exam: Present: other (Lids and conjunctivae are unremarkable). Absent: scleral icterus - ENT ENT exam: Present: normal exam, normal oropharynx - Neck Neck exam: Present: normal inspection - Respiratory Respiratory exam: Present: clear to auscultation bilaterally. Absent: rales, rhonchi, wheezes - Cardiovascular Cardiovascular exam: Present: regular rate and rhythm. Absent: diastolic murmur , JVD, systolic murmur - GI/Abdominal GI/Abdominal exam: Present: normal bowel sounds, soft. Absent: ascites, distended, mass, organomegaly, tenderness - Extremities Exam Extremities exam: Present: normal inspection, full ROM - Back Exam Back exam: Present: normal inspection - Neurological Exam Neurological exam: Present: alert, oriented X3 - Psychiatric Psychiatric exam: Present: normal affect, normal mood - Skin Skin exam: Present: normal color, warm, dry Results - Labs CBC & BMP: 01/15/17 04:56 01/15/17 04:56 Lab Results: I have reviewed the past 24 hour labs
[2017-01-15] MEDS: NICOTINE 14 MG/24 HR PATCH TRANSDERM SCH (09:49)
[2017-01-15] MEDS: AZITHROMYCIN 250 MG TABLET PO SCH (09:49)
[2017-01-15] MEDS: THEOPHYLLINE ER (24 HR) 400 MG CAPSULE PO SCH (09:49)
[2017-01-15] MEDS: BENZONATATE 100 MG CAPSULE PO SCH ×3 (09:49→20:41)
--- NOTE | 2017-01-15 09:58 | Pulmonology Progress Note ---
Pulmonary - PN: Subj Interval history: Patient is a 56-year-old white lady that is a lifelong smoker that now presents with obstructed right lung and likely has lung cancer at her right main bronchus. She does have COPD with CO2 retention. She looks like she is very sensitive to oxygen. 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 On her bronchoscope the right main bronchus is completely obstructed with tumor. She has not had any further bleeding and she is breathing okay. Her cytology did come back squamous cell cancer. She is getting a line placed today and will start chemotherapy. She is actually awake and eating and looks comfortable. She is quite debilitated but is stable. Exam (Progress Note) - Constitutional Vitals: Period Temp Pulse Resp BP Sys/Singh Pulse Ox Last 24 Hr 97.4 F-98.4 F 105-116 16-20 112-118/59-76 94-100 Exam: General appearance: no acute distress, she is awake and talking and in no distress. She is sitting up eating breakfast. - Head Head exam: Present: normal inspection, normocephalic - Eye Eye exam: Present: EOMI. Absent: scleral icterus Pupils: Present: JAILYN - ENT ENT exam: Present: normal exam - Neck Neck exam: Present: other (She does have distended neck veins). Absent: lymphadenopathy, thyromegaly - Respiratory Respiratory exam: Present: She has no breath sounds in the right lung. Left lung is reasonably clear. - Cardiovascular Cardiovascular exam: Present: regular rate and rhythm. Absent: gallop, systolic murmur - GI/Abdominal GI/Abdominal exam: Present: distended, firm, organomegaly (She does have a large liver), tenderness, soft - Extremities Exam Extremities exam: Absent: calf tenderness, edema. She has no signs of phlebitis. - Neurological Exam Neurological exam: Present: She is awake and talking this morning. She moves her extremities okay. - Psychiatric Psychiatric exam: Present: normal affect - Skin Skin exam: Present: warm, dry Results - Labs CBC & BMP: 01/15/17 04:56 01/15/17 04:56 Assessment and Plan (1) Atelectasis of right lung Status: Acute Assessment and plan: The patient has obstruction of the right main bronchus with tumor. Cytology is consistent with squamous cell cancer. She will start chemotherapy today. Current Visit: Yes (2) Lung cancer Status: Chronic Assessment and plan: I suspect she has lung cancer in the right main. 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 Cytology is consistent with squamous cell cancer. Current Visit: Yes (3) Unintended weight loss Status: Acute Assessment and plan: The patient has been losing weight because of her suspected malignancy. Current Visit: Yes (4) Nicotine dependence Status: Acute Assessment and plan: She has a long history of nicotine dependence. Current Visit: Yes (5) COPD (chronic obstructive pulmonary disease) Status: Chronic Assessment and plan: Patient has COPD and will continue with bronchodilator therapy. She does have CO2 retention and will keep her on very minimal oxygen. She is breathing comfortably at present. She is tolerating steroids and bronchodilator therapy. She is starting chemotherapy today. Overall she seems to be reasonably stable. I will check back periodically. Current Visit: Yes Qualifiers: COPD type: COPD with acute exacerbation Qualified Code(s): J44.1 - Chronic obstructive pulmonary disease with (acute) exacerbation
[2017-01-15] MEDS: ENOXAPARIN 40 MG/0.4 ML SYRINGE SUBCUT SCH (11:47)
[2017-01-15] MEDS: ZINC OXIDE PASTE 113 GM TUBE TOP SCH ×2 (11:47→20:43)
--- NOTE | 2017-01-15 12:38 | Interventional Radiology Rpt ---
IR PICC line insertion, US guide vascular access, Consult to Interventional Rad Indication: Lung cancer. Chemotherapy requirement. No Mediport catheter. PICC LINE Description: A formal timeout was performed. Maximum sterile barrier technique was used. Sonographic evaluation of the right upper extremity demonstrates patent and compressible basilic vein. The upper arm was prepped and draped in sterile fashion. 3 cc 1% lidocaine was administered subcutaneously. Under sonographic guidance, a micropuncture needle was advanced into the vein. A captured sonographic image documents the position of the needle. Needle was exchanged over a wire for a peel-away sheath. A dual lumen power PICC, cut to 31 cm, was advanced over the wire until the tip was at the RA-SVC junction. The position of the catheter was confirmed with fluoroscopic guidance and an image stored in PACS. The wire and sheath were removed. Both ports of the PICC were aspirated and flushed with heparinized saline. The device was secured with a StatLock. Fluoroscopy: 0.2 minutes. Impression: PICC line ready for immediate use. Routine catheter care. PROCEDURE INTERPRETED AT [facility] DEPARTMENT OF RADIOLOGY Final Report Signed by: Conrad Ramos M.D.
[2017-01-15] MEDS: GRANISETRON 1 MG/1 ML VIAL IV SCH (13:24)
[2017-01-15] MEDS ORDERED: diphenhydrAMINE 50 MG/1 ML VIAL IV ONE (13:30)
[2017-01-15] MEDS ORDERED: FAMOTIDINE INJ 40 MG in SODIUM CHLORIDE 0.9% 100 ML IV ONE (14:00)
--- NOTE | 2017-01-15 15:43 | Hospitalist Progress Note ---
Assessment and Plan (1) Stage IV squamous cell carcinoma of lung Status: Acute Assessment and plan: picc line today done, chemotherapy today, possible home in am Current Visit: Yes (2) Pulmonary hypertension Status: Chronic Current Visit: Yes (3) COPD exacerbation Status: Acute Assessment and plan: resolved, cont oxygen changed duonebs to tid, cont steroids due to chemo Current Visit: Yes (4) Hypercalcemia of malignancy Status: Acute Assessment and plan: returned to normal Current Visit: Yes (5) Acute on chronic respiratory failure with hypoxia and hypercapnia Status: Acute Assessment and plan: resolving Current Visit: Yes (6) Anemia Status: Acute Assessment and plan: cont pepcid Current Visit: Yes (7) Tachycardia Status: Acute Assessment and plan: metoprolol 25 mg po bid Current Visit: Yes (8) Hyperglycemia Status: Acute Assessment and plan: hgb a1c Current Visit: Yes Hospitalist: Subjective Interval history: Patient received a PICC line today. 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 She seems rather confused repeating the same sentences over and over. Patient will get a dose of chemotherapy for lung cancer today and then will not probably need another dose for 3 weeks. Exam - Constitutional Vitals: Period Temp Pulse Resp BP Sys/Singh Pulse Ox Last 24 Hr 96.1 F-98.4 F 103-116 16-20 107-121/57-78 94-100 Exam: Heart Rate-[tachy Lungs-[clear but diminished ] GI-[+bs soft, NT,cachetic ] Ext-[no edema] Neuro [Motor 5/5 but weak], [alert and oriented times 2] psych [depressed mood and flat affect] General [no acute distress] Results - Labs CBC & BMP: 01/15/17 04:56 01/15/17 04:56 Lab Results: I have reviewed the past 24 hour labs - Diagnostic Findings Procedure: X-ray: report reviewed by me (Normal bone scan)
[2017-01-15] MEDS: METOPROLOL TARTRATE 25 MG TABLET PO SCH ×2 (16:23→20:41)
[2017-01-16 05:55] LABS: Basophils % 0.1 % (0.0-0.8); Hematocrit 31.9 VOL% (35.7-47.0); Hemoglobin 9.4 GM/DL (12.0-16.0); Immature Granulocytes % 1.2 %; Immature Granulocytes Absolute 0.23 #; Lymphocytes # 0.8 10*3/uL (1.4-4.0); Lymphocytes % 3.9 % (21.3-54.2); Mean Corpuscular HGB Conc 29.5 GM/DL (32-36); Mean Corpuscular Hemoglobin 28 PG (27-34); Mean Corpuscular Volume 95.5 FL (87-102); Mean Platelet Volume 9.6 FL (9.6-12.0); Monocytes # 0.7 10*3/uL (0.11-0.8); Monocytes % 3.5 % (1.7-12.7); Neutrophils # 17.6 10*3/uL (1.4-7.4); Neutrophils % 91.3 % (38.7-73.9); Platelet Count 213 T/CUMM (130-400); Red Blood Count 3.34 MC/CUMM (3.8-5.5); Red Cell Distribution Width 16.2 % (9.3-17.3); White Blood Count 19.3 T/CUMM (4-12)
[2017-01-16 06:17] LABS: Hypochromasia 1+; Microcytosis 1+
[2017-01-16 06:18] LABS: Platelet Estimate Normal
[2017-01-16 06:33] LABS: Albumin 2.2 G/DL (3.4-5.0); Bilirubin,Total 0.4 MG/DL (0.2-1.0); Calcium 7.7 MG/DL (8.5-10.1); Osmolality,Calculated 273.8 MOS/KG (273-304); Potassium 4.5 MMOL/L (3.5-5.1); Total Protein 6.1 G/DL (6.4-8.3)
[2017-01-16] MEDS: ALBUTEROL/IPRATROPIUM 3 ML NEB RESP TX SCH ×2 (08:11→11:16)
[2017-01-16] MEDS: BENZONATATE 100 MG CAPSULE PO SCH (09:50)
[2017-01-16] MEDS: AZITHROMYCIN 250 MG TABLET PO SCH (09:50)
[2017-01-16] MEDS: METOPROLOL TARTRATE 25 MG TABLET PO SCH (09:52)
[2017-01-16] MEDS: GRANISETRON 1 MG/1 ML VIAL IV SCH (09:52)
[2017-01-16] MEDS: NICOTINE 14 MG/24 HR PATCH TRANSDERM SCH (09:52)
[2017-01-16] MEDS: ZINC OXIDE PASTE 113 GM TUBE TOP SCH (09:53)
[2017-01-16] MEDS: THEOPHYLLINE ER (24 HR) 400 MG CAPSULE PO SCH (09:54)
--- NOTE | 2017-01-16 11:54 | Discharge Summary ---
Hospital Course - Hospital Course Hospital Course: 56-year-old female that presented to the ED at [facility] this morning for the evaluation of chest pain, shortness of breath, significant weight loss and lower extremity edema. The patient reported a medical history significant for nicotine addiction. Patient was tachycardic with a heart rate noted at 100 and tachypnea with respirations noted at 23. Labs were obtained which were significant for white blood cell count 18.3, hemoglobin 11.2, sodium 126, chloride 84, carbon dioxide 41, calculated osmolality 252.4, calcium 12, AST 67, ALT 65, alkaline phosphatase 171, troponin 0 0.140, BNP 392, albumin 2.6 , globulin 5.1, HDL cholesterol 34. Chest x-ray was significant for opacification of the right hemithorax. KUB reported displacement of the bowel inferiorly which could not exclude a mass however only one is essentially unremarkable. Patient was started on Rocephin and azithromycin and placed on normal saline for hyponatremia. CT of the chest/abdomen and pelvis was performed. There is a right lung mass causing complete consolidation of the right lung with extension into the pleural space with a thick irregular pleural effusion and evidence of mass-effect affecting the right heart with occlusion of the SVC. CT of the abdomen shows hepatomegaly with possible hepatic congestion and not moderate to large amount of ascites. GI was consulted and saw patient but felt that the hepatic congestion did not require any intervention at this time. Venous Doppler showed no evidence of a DVT at this time. Dr. Adalberto Mercado from pulmonary was consulted. Bronchoscopy was performed on January 12, 2017 showing complete obstruction of the right main bronchus with tumor cytology brushings were sent. Patient was also noted to have a significant pericardial effusion possibly secondary to tumor. Dr. Anneliese Bar was consulted and recommended hospice and palliative care only. Patient was not a surgical candidate. The brushings from the bronchoscopy came back squamous cell carcinoma. Dr. Burgos was consulted. Dr. Burgos feels she had stage IV squamous cell carcinoma of the lung with chest wall invasion and malignant pleural effusions. He started her on chemotherapy with abraxane and carboplatin. Patient does not have insurance and we are looking to expedite her application for disability and Medicaid. Patient's O2 sat on room air was 79%. director dental services had paste for her to get 2 L of O2 at home continuously. Patient's white count remains elevated despite IV antibiotics because his tumor and not pneumonia. Her antibiotics have been discontinued. Dr. Burgos we will see her back on fourth floor in approximately 1 week. We had placed a PICC line for IV chemotherapy but she quickly developed a clot. We will remove this PICC line. She will most likely need a port prior to her next chemotherapy. He recommends possibly repeating the abraxane in possible a week. - Time spent with patient Time with patient DS: Greater than 30 minutes (45 min) Diagnosis - Discharge Diagnosis (1) Stage IV squamous cell carcinoma of lung Status: Acute (2) Pulmonary hypertension Status: Chronic (3) COPD exacerbation Status: Acute (4) Hypercalcemia of malignancy Status: Acute (5) Acute on chronic respiratory failure with hypoxia and hypercapnia Status: Acute (6) Anemia Status: Acute (7) Tachycardia Status: Acute (8) Hyperglycemia Status: Acute Specialty Discharge - Follow Up or Referrals Follow up with: Conrad Burgos MD [Physician] - 01/22/17 ([facility]) Discharge Plan - Discharge Data Disposition: Disch To Home/Self Care Condition at Discharge: Stable Discharge Diet: diabetic diet Activity: resume usual activities as tolerated, wear oxygen at all times Hygiene: no restrictions Weight Bearing at Discharge: full weight bearing Driving: not until seen by doctor - Discharge Medications New Theophylline ER Cap (24 Hr) [Fritz-24] 400 mg PO DAILY #30 capsule Zinc Oxide Paste [Desitin Paste] 1 applic TOP BID applic Promethazine Tab [Phenergan Tab] 12.5 mg PO Q4H #30 tablet Metoprolol Tartrate Tab [Lopressor Tab] 25 mg PO BID #60 tablet - Follow Up or Referral Follow Up: Conrad Burgos MD [Physician] - 01/22/17 ([facility]) - Forms/Instructions Additional Discharge Instructions: cbc, cmp, [facility], chest re sob on January 22. Exam - Constitutional Vitals: Period Temp Pulse Resp BP Sys/Singh Pulse Ox Last 24 Hr 96.1 F-98.4 F 88-112 18-20 104-121/57-78 97-100 General appearance: no acute distress, under weight - Respiratory Respiratory exam: Present: clear to auscultation bilaterally, decreased breath sounds. Absent: rhonchi, wheezes - Cardiovascular Cardiovascular exam: Present: regular rate and rhythm. Absent: systolic murmur - GI/Abdominal GI/Abdominal exam: Present: normal bowel sounds, soft. Absent: tenderness - Neurological Exam Neurological exam: Present: alert, oriented X3 Discharge Results Procedures and tests throughout hospitalization: Pending Orders 01/09/17 15:20 Cytology Request Routine 01/12/17 08:04 Cytology Request Routine 01/12/17 11:00 Occult Blood, Stool Stat 01/15/17 12:49 Hepatitis C Virus Genotype, S Routine 01/17/17 04:00 Comp Blood Count Auto Diff IN AM Comprehensive Metabolic Panel IN AM 01/18/17 04:00 Comp Blood Count Auto Diff IN AM Comprehensive Metabolic Panel IN AM Labs on day of discharge: Labs from last 24 hours 01/16/17 01/16/17 01/15/17 05:33 05:33 04:56 WBC 19.3 H RBC 3.34 L Hgb 9.4 L Hct 31.9 L MCV 95.5 MCH 28 MCHC 29.5 L RDW 16.2 Plt Count 213 MPV 9.6 Neut % (Auto) 91.3 H Lymph % (Auto) 3.9 L Jerome % (Auto) 3.5 Eos % (Auto) 0.0 Baso % (Auto) 0.1 Neut # (Auto) 17.6 H Lymph # (Auto) 0.8 L Jerome # (Auto) 0.7 Eos # (Auto) 0.0 Baso # (Auto) 0.0 Immature Gran % 1.2 Nucleated RBC % 0.0 Immature Gran # 0.23 Nucleated RBCs # 0.00 Platelet Estimate Normal Immature Plt Fraction 0.0 Hypochromasia 1+ Microcytosis 1+ Sodium 137 Potassium 4.5 Chloride 97 L Carbon Dioxide 38 H Anion Gap 6.5 BUN 17 Creatinine 0.50 L GFR Calculation 89 BUN/Creatinine Ratio 34.00 H Glucose 84 Hemoglobin A1c 6.5 H Calculated Osmolality 273.8 Calcium 7.7 L Total Bilirubin 0.40 AST 39 H ALT 42 Alkaline Phosphatase 93 Total Protein 6.1 L Albumin 2.2 L Globulin 3.9 H Albumin/Globulin Ratio 0.5 L HCV RNA Quant (PCR) 01/10/17 03:23 WBC RBC Hgb Hct MCV MCH MCHC RDW Plt Count MPV Neut % (Auto) Lymph % (Auto) Jerome % (Auto) Eos % (Auto) Baso % (Auto) Neut # (Auto) Lymph # (Auto) Jerome # (Auto) Eos # (Auto) Baso # (Auto) Immature Gran % Nucleated RBC % Immature Gran # Nucleated RBCs # Platelet Estimate Immature Plt Fraction Hypochromasia Microcytosis Sodium Potassium Chloride Carbon Dioxide Anion Gap BUN Creatinine GFR Calculation BUN/Creatinine Ratio Glucose Hemoglobin A1c Calculated Osmolality Calcium Total Bilirubin AST ALT Alkaline Phosphatase Total Protein Albumin Globulin Albumin/Globulin Ratio HCV RNA Quant (PCR) [id number] DS: Provider Date of admission: 01/09/17 11:50 Primary care physician: . No PCP Attending physician on admission: Hemant Escamilla MD Consults: 01/09/17 14:51 Consult to Case Mgmt/Social Srvs [CONS] Routine Reason for Case Mgmt/Social Srvs: Rehab Other Consult to Physician [CONS] Routine Comment: Consulting Provider: Jose Elias Alexander When should Consulting Provider be notified: Now 01/09/17 17:10 Consult to Physician [CONS] Routine Comment: Consulting Provider: Ping Kearns When should Consulting Provider be notified: Now Person Notified: Dr. Kearns Date Notified: 01/09/17 Time Notified: 18:30 Consult Notification Comment: He saw scans. Will see patient in the morning. 01/10/17 14:39 Consult to Physician [CONS] Routine Comment: new cancer diagnosis - ? palliative care Consulting Provider: Conrad Burgos Consulting Provider Notified: Yes Consult to Specialist Group: Oncology When should Consulting Provider be notified: Now Person Notified: Dr. Burgos Date Notified: 01/10/17 Time Notified: 14:43 Consult Notification Comment: Will see in am. 01/11/17 16:11 Consult to Dietitian [CONS] Routine Reason for Dietitian: Dietary Consult Supplements and/or Snacks Discharging clinician: Lona Truong MD
[2017-01-16 12:14] VITALS: BP 112/78
[2017-01-16] MEDS: ENOXAPARIN 40 MG/0.4 ML SYRINGE SUBCUT SCH (13:13)
== END 2017-01-16 15:30 | disposition home or self-care (01) | DRG 180 ==
LOC: N.ED 09:33 → N.EDINP 11:50 → SUATTDRO 11:50 → N.EDINP 12:35 → N.5E 14:11 → N.ICU 17:52 → N.4E 01-13 12:35
PROVIDERS: ADMIT Internal Medicine; ATTEND Internal Medicine
PROC: BRONCHB (2017-01-12 07:20)

== ENCOUNTER 2017-01-22 22:11 | Inpatient (IN) ==
--- NOTE | 2017-01-22 23:12 | Emergency Department Note ---
Arrival - Arrival Chief Complaint: Upper Respiratory Stated Complaint: problems breathing Pnemonia on chemotherapy ED Nursing Triage Note: C/O Productive cough/fever. Onset 2 weeks ago worsening tonight Pt was diagnosed with pneumonia 2 weeks ago and is scheduled to go back to see Dr. Burgos tomorrow to see if it cleared up, but states she isn't any better. Last chemo was last week Mode of Arrival: Wheelchair Time Seen by Provider: 01/22/17 23:00 - History of Present Illness HPI Narrative: This is a 56-year-old white female with a history of nicotine addiction, pulmonary hypertension, COPD, hypercalcemia of malignancy, chronic respiratory failure with hypoxemia and hypercapnia, anemia, and stage IV squamous cell carcinoma who presents with productive cough and fever of 102 tachycardia hypotension and hypoxemia. The patient had been admitted to the hospital January 09, 2017 for shortness of breath which was found to be due to squamous cell carcinoma of the right mainstem bronchus with associated pneumonia pericardial effusion possibly related to the tumor for which cardiothoracic surgery felt that she was not a surgical candidate and who was seen by oncology/ Dr. Burgos who felt that the patient had stage IV squamous cell carcinoma of the lung with chest wall invasion and malignant pleural effusions and started the patient on chemotherapy which included abraxane and carboplatin through a PICC line which became clotted and had to be removed. Allergies/Adverse Reactions: Allergies Allergy/AdvReac Type Severity Reaction Status Date / Time No Known Allergies Allergy Unverified 01/09/17 09:16 Home Medications: Home Medications Medication Instructions Recorded Confirmed Type Metoprolol Tartrate Tab [Lopressor 25 mg PO BID #60 tablet 01/16/17 Rx Tab] Promethazine Tab [Phenergan Tab] 12.5 mg PO Q4H #30 tablet 01/16/17 Rx Theophylline ER Cap (24 Hr) 400 mg PO DAILY #30 capsule 01/16/17 Rx [Fritz-24] Zinc Oxide Paste [Desitin Paste] 1 applic TOP BID applic 01/16/17 Rx Review of System - Review of System Constitutional: Present: chills, diaphoresis, fever Eyes: Absent: redness, vision change, other Head/Ears/Nose/Throat: Absent: epistaxis, nasal drainage Respiratory: Present: cough Cardiovascular: Present: palpitations, dyspnea on exertion Gastrointestinal: Absent: diarrhea, constipation, hematemesis Genitourinary female: Absent: dysuria, discharge, frequency Musculoskeletal: Absent: joint swelling, lower back pain, leg pain, neck pain Skin: Absent: change in color, change in hair/nails Neurological: Absent: numbness, paresthesias, confusion Psychiatric: Absent: anxiety, depression Endocrine: Absent: heat intolerance, polydipsia, polyuria Hematological/Lymphatic: Absent: easy bruising, lymphadenopathy Allergic/Immunologic: Absent: urticaria, itchy eyes Medical,Surgical,& Family Hx - Medical History Cardio: No history of: Aneurysm, Cardiac Dysrhythmia, Cerebrovascular Disease, Congenital Heart Disease, CHF, CAD, Hypertension, PR, Pacemaker, PVD, Valvular Heart Disease, Cardiovascular Problems Psychological: No history of: Anxiety Disorders, ADHD, Behavior Problems, Bipolar Disorder, Depression, Previous Suicide Attempt, Psychiatric/Substance Abuse Tx, Schizophrenia, Violent Behavior, Psychiatric Problems Neurology: No history of: Seizures - Surgical History Abdominal Surgeries: Surgical HX of: Abdominal Surgery ("For some kind of infection") - Family History Family History: Reports;: Family Cancer, Family Heart Disease - Social History Smoking Status: Current every day smoker Frequency of Alcohol Use: None Type of Drug Use: None Exam Vital Signs: Vital Signs Temperature 102.3 F H 01/22/17 22:18 Pulse Rate 162 H 01/22/17 22:18 Respiratory Rate 20 01/22/17 22:18 Blood Pressure 85/68 01/22/17 22:18 O2 Sat by Pulse Oximetry 95 01/22/17 22:18 - General General appearance: alert, in no apparent distress - Eye Eye exam: Present: PERRL, EOMI - ENT ENT exam: Present: normal exam, normal oropharynx - Neck Neck exam: Present: normal inspection, full ROM - Chest Chest inspection: Present: normal inspection, symmetric chest wall rise - Respiratory Respiratory exam: Present: rales, other (Decreased breath sounds right base) - Cardiovascular Cardiovascular exam: Present: tachycardia - Abdominal Exam Abdominal exam: Present: soft, normal bowel sounds - Extremities Exam Extremities exam: Present: normal inspection, full ROM - Back Exam Back exam: Present: normal inspection, full ROM - Neurological Exam Neurological exam: Present: oriented X3, CN II-XII intact - Psychiatric Psychiatric exam: Present: normal affect, normal mood - Skin Skin exam: Present: warm, dry Course Course Narrative: The patient is now complaining of abdominal pain but she does not have peritoneal signs on examination. CT scan shows ascites but the physical examination does not suggest that the patient has spontaneous bacterial peritonitis. The CT scan of the chest shows no pulmonary embolus but there is obstruction and compression of the right pulmonary artery presumably from the squamous cell carcinoma on the right side. The pulmonary artery contrast refluxes into the inferior vena cava and the liver which is likely the basis of the patient's ascites. Because of the fever tachycardia and hypotension it appears that the patient is septic although the source is not obvious. Patient will be admitted to the hospital for intravenous fluids and antibiotics and will likely be a hospice candidate. The case was discussed with the hospitalist who agreed to admit the patient. Results - Labs CBC & BMP: 01/22/17 23:00 01/22/17 23:00 Disposition Clinical Impression: Sepsis, Squamous cell carcinoma of lung, stage IV Disposition: Still a Patient
[2017-01-22] MEDS ORDERED: SODIUM CHLORIDE 0.9% 2,000 ML IV STA (23:22)
[2017-01-22] MEDS ORDERED: CEFEPIME 2,000 MG in SODIUM CHLORIDE 0.9% 100 ML IV STA (23:23)
[2017-01-22] MEDS ORDERED: VANCOMYCIN INJ 1,000 MG in SODIUM CHLORIDE 0.9% 250 ML IV STA (23:23)
[2017-01-22 23:33] LABS: Basophils % 0.2 % (0.0-0.8); Eosinophils % 0.1 % (0.00-10.9); Hematocrit 30.1 VOL% (35.7-47.0); Hemoglobin 9.4 GM/DL (12.0-16.0); Immature Granulocytes % 1.3 %; Immature Granulocytes Absolute 0.16 #; Lymphocytes # 0.9 10*3/uL (1.4-4.0); Mean Corpuscular HGB Conc 31.2 GM/DL (32-36); Mean Corpuscular Hemoglobin 28 PG (27-34); Mean Corpuscular Volume 90.4 FL (87-102); Mean Platelet Volume 9.9 FL (9.6-12.0); Monocytes # 0.6 10*3/uL (0.11-0.8); Monocytes % 4.5 % (1.7-12.7); Neutrophils # 10.5 10*3/uL (1.4-7.4); Neutrophils % 86.9 % (38.7-73.9); Platelet Count 118 T/CUMM (130-400); Red Blood Count 3.33 MC/CUMM (3.8-5.5); Red Cell Distribution Width 16.2 % (9.3-17.3); White Blood Count 12.1 T/CUMM (4-12)
[2017-01-22] MEDS ORDERED: VANCOMYCIN 1,000 MG VIAL ONE (23:37)
[2017-01-22 23:53] LABS: Albumin 2.2 G/DL (3.4-5.0); Bilirubin,Total 0.4 MG/DL (0.2-1.0); Calcium 7.8 MG/DL (8.5-10.1); Osmolality,Calculated 263.7 MOS/KG (273-304); Potassium 3.7 MMOL/L (3.5-5.1); Total Protein 6.2 G/DL (6.4-8.3)
[2017-01-23 00:06] LABS: VBG Base Excess 7.9 MEQ/L (0-4); VBG HCO3 31.7 MEQ/L (24-28); VBG PCO2 39.3 MMHG (41-51); VBG PH 7.513
[2017-01-23] MEDS ORDERED: KETOROLAC 30 MG/1 ML VIAL IV STA (01:03)
[2017-01-23] MEDS ORDERED: KETOROLAC 30 MG/1 ML VIAL ONE (01:05)
[2017-01-23 01:20] LABS: Apearance,Urine CLEAR (Clear); Bilirubin,Urine Negative (Negative); Blood, Urine Negative (Negative); Glucose,Urine (UA) Negative (Negative); Ketones,Urine Negative (Negative); Mucus,Urine Occasional /LPF (Occasional); Nitrite,Urine Negative (Negative); Protein,Urine Negative; Urine Color Yellow (Yellow); Urine Specific Gravity 1.009 (1.001-1.035); Urine Urobilinogen < 2.0 EU/DL (0.2-1.0); WBC,Urine 1 /HPF (0-6)
[2017-01-23] MEDS ORDERED: fentaNYL 100 MCG/2 ML VIAL IV STA (02:00)
[2017-01-23] MEDS ORDERED: ONDANSETRON 4 MG/2 ML VIAL IV STA (02:00)
[2017-01-23] MEDS ORDERED: fentaNYL 100 MCG/2 ML VIAL ONE (02:01)
[2017-01-23] MEDS ORDERED: ONDANSETRON 4 MG/2 ML VIAL ONE (02:01)
--- NOTE | 2017-01-23 02:57 | Hospitalist History & Physical ---
History of Present Illness Chief complaint: cough, fever, abdominal pain History of present illness: Ms. Jones is a 56 year old female with newly diagnosed metastatic SCC of the lung. She was just discharged on 01/16/17. During that time, she presented with cough, fever, and weight loss. She was found to have an obstructing right lung mass. She underwent bronchoscopy with brushings and cytology consistent with squamous cell cancer. It was metastatic given chest wall invasion/pericaridal and pleural effusions. She was started on abraxane and carboplatin for stage IV SCC of the lung. Plan is to follow up with Dr. Baer of oncology today. Other active issues during that hospital stay were COPD with acute exacerbation , anemia, and hypoxic and hypercapnic respiratory failure requiring oxygen. She states that since her discharge, her productive cough of whitish sputum has worsened and she has been having worsening abdominal pain. Her distension is unchanged. She is having bowel movements. Her SOB is unchanged. While in the ER , she was given fentanyl and toradol. She states that her abdominal pain has improved since being given the pain medications. Her sister (Chacha Cheek, cell: [phone]) is present and provides support. We talked about patient's medical condition. Patient understands that her condition is terminal. We talked about resusciation. She states that in the event of a cardiopulmonary arrest, she desires no resusciative measures. She does not want to go to the ICU. We talked about hospice care. She kept saying that she needs someone to watch her while her boyfriend, Nino, goes to his medical appointments. She is interested in hospice because she is aware of the comfort care measures of palliating symptoms such as pain, dyspnea, etc. However , she does not want to go to a SNF or other facility. She wants to go home. She understands that hospice services are available 24 hours/day but does not provide direct 24 hour care at the home (only in special circumstances where continuous care level is required). At this point, she is undecided about hospice care. Home Medications Medication Instructions Recorded Confirmed Type Metoprolol Tartrate Tab [Lopressor 25 mg PO BID #60 tablet 01/16/17 Rx Tab] Promethazine Tab [Phenergan Tab] 12.5 mg PO Q4H #30 tablet 01/16/17 Rx Theophylline ER Cap (24 Hr) 400 mg PO DAILY #30 capsule 01/16/17 Rx [Fritz-24] Zinc Oxide Paste [Desitin Paste] 1 applic TOP BID applic 01/16/17 Rx Allergies Allergy/AdvReac Type Severity Reaction Status Date / Time No Known Allergies Allergy Unverified 01/09/17 09:16 Medical,Surgical,& Family Hx - Medical History Cardio: No history of: Cardiac Dysrhythmia, Cerebrovascular Disease, Congenital Heart Disease, CHF, CAD, Hypertension, [place], Pacemaker, PVD, Valvular Heart Disease, Cardiovascular Problems Psychological: No history of: Anxiety Disorders, ADHD, Behavior Problems, Bipolar Disorder, Depression, Previous Suicide Attempt, Psychiatric/Substance Abuse Tx, Schizophrenia, Violent Behavior, Psychiatric Problems Neurology: No history of: Seizures Respiratory: History of: Pulmonary Hypertension, Lung Cancer, Respiratory Problems Hematology: History of: Anemia - Surgical History Abdominal Surgeries: Surgical HX of: Abdominal Surgery ("For some kind of infection") - Family History Family History: Reports;: Family Cancer, Family Heart Disease - Social History Smoking Status: Current every day smoker Frequency of Alcohol Use: None Type of Drug Use: None - Constitutional Constitutional: Absent: chills, fever(s) - EENT Nose, mouth and throat: Absent: dysphagia, sore throat - Cardiovascular Cardiovascular: Present: dyspnea. Absent: chest pain at rest, orthopnea, PND - Respiratory Respiratory: Present: cough, dyspnea. Absent: hemoptysis - Gastrointestinal Gastrointestinal: Present: abdominal pain, bloating. Absent: constipation, diarrhea, dyspepsia, nausea, vomiting - Psychiatric Psychiatric: Absent: anxiety Exam - Constitutional Vitals: Period Temp Pulse Resp BP Sys/Singh Pulse Ox Last 24 Hr 102.3 F 162 20 85/68 95 General appearance: no acute distress, under weight, cachectic - Head Head exam: Present: normal inspection, normocephalic - Eye Eye exam: Present: EOMI. Absent: conjunctival injection Pupils: Present: JAILYN - Respiratory Respiratory exam: Present: rhonchi, other (unlabored respirations, coarse breath sounds bilaterally, descent air movement). Absent: chest wall tenderness , decreased breath sounds, rales, wheezes - Cardiovascular Cardiovascular exam: Present: tachycardia - GI/Abdominal GI/Abdominal exam: Present: normal bowel sounds, distended, soft. Absent: guarding, tenderness, rebound - Extremities Exam Extremities exam: Present: edema (2+) - Neurological Exam Neurological exam: Present: oriented X3 - Psychiatric Psychiatric exam: Present: normal affect, normal mood Results - Labs CBC & BMP: 01/22/17 23:00 01/22/17 23:00 - Impressions Patient is a 56 yo female with metastatic lung cancer who presents with worsening cough, fever, and abdominal pain. Active Issues: 1. SIRS/sepsis. Patient with fevers/tachycardia/leukocytosis. Likely 2nd to tumor burden vs PE vs post obstructive pneumonia. Her leukocytosis has improved compared to wbc on 01/16 (19.3). For now, will treat for possible infection and defer further use with antibiotic therapy to main hospitalist. 2. Acute PE; for now, will start weight based lovenox and defer further treatment to main hospitalist 3. Metastatic lung cancer, terminal 4. Chronic respiratory failure 5. Tobacco disorder, patient received smoking cessation counselling. She voiced understanding (counselling time: 10 minutes) 6. Anemia, likely 2nd to cancer. HCT stable 7. Goals of care: DNR; patient would benefit from hospice care. Plan: admit/continue IVFs/control fevers/await culture results/broad spectrum antibiotics/weight based lovenox/consult oncology and SW/pain control as much as possible; continue oxygen; duonebs; check theodur level before continuing treatment. Medications reconciled. CODE: DNR/DNI The plan of care may be modified as more information becomes available. - Diagnostic Findings Procedure: CT - chest: report reviewed by me (LLL PE, consolidation in right lung, right loculated pleural effuison, other abnormal findings; please refer to report)
[2017-01-23] MEDS ORDERED: ACETAMINOPHEN 325 MG TABLET PO PRN (04:00)
[2017-01-23] MEDS ORDERED: ALBUTEROL/IPRATROPIUM 3 ML NEB RESP TX PRN (04:03)
[2017-01-23] MEDS ORDERED: SODIUM CHLORIDE 0.9% 2,000 ML IV STA (04:53)
[2017-01-23] MEDS ORDERED: ALBUMIN 5% 25 GM in PREMIX 1 EACH IV SCH (06:00)
[2017-01-23] MEDS: SODIUM CHLORIDE 0.9% 1,000 ML IV SCH ×2 (06:30→14:58)
[2017-01-23 06:45] LABS: Basophils % 0.1 % (0.0-0.8); Hematocrit 32.9 VOL% (35.7-47.0); Hemoglobin 9.9 GM/DL (12.0-16.0); Immature Granulocytes % 1.5 %; Immature Granulocytes Absolute 0.21 #; Lymphocytes # 1.3 10*3/uL (1.4-4.0); Mean Corpuscular HGB Conc 30.1 GM/DL (32-36); Mean Corpuscular Hemoglobin 28 PG (27-34); Mean Corpuscular Volume 94.5 FL (87-102); Mean Platelet Volume 10.3 FL (9.6-12.0); Monocytes # 0.4 10*3/uL (0.11-0.8); Monocytes % 2.7 % (1.7-12.7); Neutrophils % 86.7 % (38.7-73.9); Platelet Count 119 T/CUMM (130-400); Red Blood Count 3.48 MC/CUMM (3.8-5.5); Red Cell Distribution Width 16.4 % (9.3-17.3); White Blood Count 13.9 T/CUMM (4-12)
[2017-01-23 07:12] LABS: Albumin 2.2 G/DL (3.4-5.0); Bilirubin,Total 0.4 MG/DL (0.2-1.0); Calcium 6.5 MG/DL (8.5-10.1); Total Protein 5.5 G/DL (6.4-8.3)
[2017-01-23 07:13] LABS: Magnesium 1.6 MG/DL (1.8-2.4); Osmolality,Calculated 266.2 MOS/KG (273-304)
--- NOTE | 2017-01-23 07:26 | Oncology Consult Note ---
History of Present Illness History of present illness: Ms. Jones is a 56 year old female with squamous cell lung cancer who was discharged in tenuous condition a week ago and he was actually scheduled to return for readmission on the morning of January 22. Although arrangements were made for the readmission, the patient did not keep the appointment for admission and I do not feel that I had adequate time to explain to her about her disease process or the importance of returning for the chemotherapy. She was discharged before I could give her complete discharge instructions. In addition, the family is insistent that they were told to return at 6 AM on January 23, 2017. This was not the order I gave and my nurses insist that it was not the instructions I gave the patient. We have documentation that the patient was instructed to return on January 22. History of present illness: Ms. Jones is a 56 year old female who presented with increasing dyspnea and chest pain that has been found to have extensive pathology within her chest and abdomen as described below. I have pasted a copy of the CT of her chest, abdomen and pelvis on this consult note. She had been sick for 5 or 6 weeks with increasing anorexia, dyspnea and with weight loss and weakness. Also with significant dyspnea with exertion. She underwent fiberoptic bronchoscopy and was found to have squamous cell carcinoma of the lung. In addition, she was found to have hypercalcemia as a complication of her lung cancer. Patient: Anastasiya Jones MR#: [id number] : 1960 Age/Sex: 56 / F ADM Date: 01/09/17 Loc: N.5E / 535-1 ADM Status: ADM IN Attending Dr: Hemant Escamilla MD Ordering Physician: Hemant Escamilla MD Date of Service: 01/09/17 Procedure(s): CT chest abdomen pelvis w con Accession Number(s): [id number] cc: Hemant Escamilla MD~ ADDENDUM Findings communicated with hospitalist contract administrative assistant. PROCEDURE INTERPRETED AT [facility] DEPARTMENT OF RADIOLOGY Final Report Signed by: Dr. Catarina Ferro Addendum Dictated By: Catarina Ferro MD 01/09/17 / 572 Addendum Signed By: Catarina Ferro MD 01/09/[address] of the chest, abdomen, and pelvis with intravenous contrast. No oral contrast was administered. Axial images were obtained with sagittal and coronal 2-D reconstructions. Comparison is made to a previous CT of the abdomen and pelvis without contrast dated January 09, 2017. Indication: Abdominal pain, generalized. Ascites. Large pleural effusion. Possible pulmonary malignancy. CT of the chest: There is consolidation of the entire right lung, which is heterogeneous, with lobular foci of irregular enhancement. There is a pleural effusion on the right, and a chest tube pigtail catheter has been placed in the right pleural space. There is lobular mass in the pleural space as well. 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 There is severe narrowing of the right main pulmonary artery which terminates in small significantly narrowed vessels. There is also invasion of portions of the right pulmonary veins. The thoracic aorta is of normal caliber. There is a complex pericardial effusion with pericardial thickening. There is a small left pleural effusion. There is atelectasis and a small amount of basilar edema present involving the left lung. There is extensive collateralization via the azygos vein due to the SVC obstruction. These collaterals extend into the abdomen and pelvis. No bony involvement is seen. Impression: There are findings involving the right lung including complete consolidation of the right lung, with lobular irregular enhancement, extension into the pleural space, and a thick irregular pleural effusion. There is mass effect involving the right aspect of the heart, with occlusion of the SVC and marked narrowing of the right main pulmonary trunk. There is high density pericardial effusion, and pericardial thickening. These findings are highly suspicious for malignancy. CT of abdomen and pelvis with intravenous contrast. The liver is enlarged with a length of 19 cm. No focal liver masses can be identified. The hepatic veins are dilated. There is ascites noted throughout the abdomen. There is fluid around the gallbladder. The loops of bowel are not dilated. There is no evidence of bowel obstruction. The uterus is heterogeneous but not enlarged. The kidneys are essentially normal. There is a small cyst noted on the right kidney. No evidence of ureteral obstruction. The abdominal aorta is of normal caliber with moderate plaque in its wall. No pancreatic enlargement is seen. Extensive collaterals are present within the retroperitoneum and pelvis, from a dilated azygous system. The spleen size is normal. The appendix presents a normal appearance. No definite adenopathy seen. No suspicious bony findings. Degenerative changes of the spinal column. Impression: Hepatomegaly. Possible hepatic congestion. Moderately large amount of ascites. The CT exam was performed using one or more of the following dose reduction techniques: Automated exposure control, adjustment of the mA and/or kV according to patient size, or use of iterative reconstruction technique. PROCEDURE INTERPRETED AT [facility] DEPARTMENT OF RADIOLOGY Final Report Signed by: Dr. Catarina Ferro Dictated By: Catarina Ferro MD 01/09/17 6108 Signed By: Catarina Ferro MD 01/09/17 5564 Technologist: EMMETT */* Past medical history: Allergies: No known allergies She tells me that she has been in good health all of her life although she has been homeless and is often had to walk. She wants to go. Family history: Her mother had lung cancer and from it. Her father apparently had a stroke. Social history: She has smoked fairly heavily for quite some years. Review of systems: General: She had a hard life as not had any significant illnesses until this current one. Eyes: No visual disturbances or eye disease. ENT: She has had poor dentition. No dysphagia or odynophagia or history of oral cancer. Lungs: She has had some left chest pain with respiration. No hemoptysis, chronic chest pain or even sputum production. Cardiovascular: No angina or coronary artery type pain and no history of congestive heart failure or cardiac disease. GI: She has had chronic constipation for years and has had blood on the toilet paper but no gross GI bleeding of any type otherwise. There is no melena, he hematochezia or hematemesis. : No history of kidney stones, recurrent kidney infections or hematuria. Musculoskeletal: No history of chronic arthritic or musculoskeletal problems. Neurologic: No history of seizures, convulsions or paralysis. No history of stroke. Hematologic: No history of enlarged lymph nodes or blood dyscrasias or bleeding disorders. Physical examination: General: The patient is acutely and chronically ill appearing emaciated and cachectic. Eyes: Normal lids and conjunctivae. ENT: Very poor dentition. Her oral mucosa is normal. Her hearing is normal. Her pharynx is normal. Neck: Her trachea is midline and she has no neck masses. Pulmonary: Absent breath sounds throughout the right lung. Coarse breath sounds on the left. Her left chest moves more than her right with respiration. There is no chest wall tenderness. Cardiovascular: Her heart rhythm is regular without murmur, gallop or rub. She has mild tachycardia. There is no jugular venous distention, clubbing or cyanosis. Abdomen: No ascites, masses, organomegaly or tenderness. Musculoskeletal: She has generalized muscle wasting without focal muscle atrophy or bone or joint deformity. Neurologic: Cranial nerves II through XII are intact. No obvious focal neurologic deficits. Psychiatric: I am not sure how alert this patient is. She has poor understanding of her disease process but this may not be due to poor mentation. Skin: No significant skin lesions or rashes. Impression: (1) squamous cell carcinoma of the right lung The patient has complete opacification of the right chest felt to be due to lung cancer. She was supposed to return yesterday for a day 8 of chemotherapy but there is some misunderstanding between the patient and us. She received day 1 of her first course of chemotherapy on January 15, 2017 and it consisted of: Dexamethasone 20 mg IV today Kytril 1 mg IV today and again in 24 and 48 hours Benadryl 50 mg IV today Pepcid 40 mg IV today Abraxane 140 mg IV over 30 minutes Carboplatin 500 mg IV over 1 hour (2) Unintended weight loss Secondary to malignancy (3) Nicotine dependence: (4) COPD (chronic obstructive pulmonary disease) Also with a component of restrictive lung disease secondary to the pleural effusion. (5) Hypercalcemia She received Zometa during her previous hospital stay of about a week ago. It was given January 12 and she received 3 mg intravenously. (6)Anemia: She is anemic on this admission with a hemoglobin of 9.9. (7)Thrombocytopenia: She is thrombocytopenic with a platelet count of 119,000 (8)Malnutrition: She is malnourished with a serum albumin of 2.2. Pulmonary has not been consulted on this patient. I am placing that consult now. I have discussed his case with Dr. Ellis Mercado. I do not plan to administer any chemotherapy for this coming Thursday. We will follow her in consultation. Home Medications Medication Instructions Recorded Confirmed Type Metoprolol Tartrate Tab [Lopressor 25 mg PO BID #60 tablet 01/16/17 Rx Tab] Promethazine Tab [Phenergan Tab] 12.5 mg PO Q4H #30 tablet 01/16/17 Rx Theophylline ER Cap (24 Hr) 400 mg PO DAILY #30 capsule 01/16/17 Rx [Fritz-24] Zinc Oxide Paste [Desitin Paste] 1 applic TOP BID applic 01/16/17 Rx Allergies Allergy/AdvReac Type Severity Reaction Status Date / Time No Known Allergies Allergy Unverified 01/09/17 09:16 Medical,Surgical,& Family Hx - Medical History Cardio: No history of: Aneurysm, Cardiac Dysrhythmia, Cerebrovascular Disease, Congenital Heart Disease, CHF, CAD, Hypertension, [place], Pacemaker, PVD, Valvular Heart Disease, Cardiovascular Problems Psychological: No history of: Anxiety Disorders, ADHD, Behavior Problems, Bipolar Disorder, Depression, Previous Suicide Attempt, Psychiatric/Substance Abuse Tx, Schizophrenia, Violent Behavior, Psychiatric Problems Neurology: No history of: Seizures Respiratory: History of: COPD, Pulmonary Hypertension, Lung Cancer, Respiratory Problems Hematology: History of: Anemia - Surgical History Abdominal Surgeries: Surgical HX of: Abdominal Surgery ("For some kind of infection") - Family History Family History: Reports;: Family Cancer, Family Heart Disease - Social History Smoking Status: Current every day smoker Frequency of Alcohol Use: None Type of Drug Use: None Exam - Constitutional Vitals: Period Temp Pulse Resp BP Sys/Singh Pulse Ox Last 24 Hr 96.6 F-102.3 F 150-162 16-24 83-89/64-72 95-100 Results - Labs CBC & BMP: 01/23/17 06:37 01/23/17 06:37
[2017-01-23] MEDS: PANTOPRAZOLE 40 MG TABLET PO SCH (09:10)
[2017-01-23] MEDS: ENOXAPARIN 40 MG/0.4 ML SYRINGE SUBCUT SCH (09:10)
[2017-01-23] MEDS: ALBUMIN 25% 25 GM in PREMIX 1 EACH IV SCH ×2 (09:17→17:58)
--- NOTE | 2017-01-23 09:18 | CT Report ---
CT chest PE study Indication: Pulmonary embolus, lung cancer Comparison: CT chest January 09, 2017 Technique: Multiple axial tomographic images of the chest were obtained after the administration of 80 cc Omnipaque 350 intravenous contrast. PE protocol followed. Coronal and sagittal maximum intensity projection images provided. Findings: There is a small peripheral left lower lobe pulmonary embolus. There is occlusion of the entire right pulmonary artery, right pulmonary veins, and lower superior vena cava secondary to tumor invasion of the mediastinum/heart which extends into the right atrium. Reflux of contrast into the IVC consistent with right heart failure. A normal right lung is not visualized. There is a large amount of heterogeneous massing/nodularity throughout the right hemithorax consistent with tumor. There is a moderate amount of loculated pleural fluid on the right, predominately inferiorly, with pleural enhancement consistent with exudative effusion. There is trace right pleural air. There is some dilatation of the upper thoracic esophagus which could reflect tumor invasion. There is small left pleural fluid. Small lucency within left rib 11 suspicious for metastasis. Right axillary adenopathy. Diffuse body wall edema. IMPRESSION: Findings as above. Preliminary report was issued by [facility]. Findings discussed with Suraj Cruz by Carlos Brown at 2:06 AM on January 23, 2017. The CT exam was performed using one or more of the following dose reduction techniques: Automated exposure control, adjustment of the mA and/or kV according to patient size, or use of iterative reconstruction technique. PROCEDURE INTERPRETED AT [facility] DEPARTMENT OF RADIOLOGY Final Report Signed by: Dr Brandon Perales
--- NOTE | 2017-01-23 09:40 | Pulmonology Consult Note ---
Assessment and Plan (1) COPD exacerbation Status: Acute Assessment and plan: The patient does have severe COPD and will continue with respiratory therapy. Current Visit: No (2) Acute on chronic respiratory failure with hypoxia and hypercapnia Status: Acute Assessment and plan: The patient continues to have problems with her breathing. Her oxygenation is okay at present. Current Visit: No (3) Stage IV squamous cell carcinoma of lung Status: Acute Assessment and plan: Patient will need to continue with chemotherapy. Her overall prognosis is poor. Current Visit: No History of Present Illness Chief complaint: Shortness of breath History of present illness: Ms. Jones is a 56 year old white female that was just here a couple weeks ago with shortness of breath and had an obstructed right main bronchus with squamous cell cancer. She did receive her first dose of chemotherapy. She is a lifelong smoker and chronically ill with COPD and now her metastatic cancer. She says she has been short of breath since she has been home and came back because of her shortness of breath. She has been very cachectic and losing weight. She is extremely short of breath and is very weak. Home Medications Medication Instructions Recorded Confirmed Type Metoprolol Tartrate Tab [Lopressor 25 mg PO BID #60 tablet 01/16/17 Rx Tab] Promethazine Tab [Phenergan Tab] 12.5 mg PO Q4H #30 tablet 01/16/17 Rx Theophylline ER Cap (24 Hr) 400 mg PO DAILY #30 capsule 01/16/17 Rx [Fritz-24] Zinc Oxide Paste [Desitin Paste] 1 applic TOP BID applic 01/16/17 Rx Allergies Allergy/AdvReac Type Severity Reaction Status Date / Time No Known Allergies Allergy Unverified 01/09/17 09:16 Review of systems: She mainly has weight loss and fatigue. She is not coughing up any blood. She has not had any fever. She is short of breath with any activity. She tolerated her chemotherapy fairly well the first round. Exam (Pulmonay) H&P - Constitutional Vitals: Period Temp Pulse Resp BP Sys/Singh Pulse Ox Last 24 Hr 96.6 F-102.3 F 150-162 16-24 83-95/64-72 95-100 General appearance: mild distress (The patient is sitting up and eating breakfast and reasonably comfortable on low-flow oxygen), cachectic - Head Head exam: Present: other (She has temporal muscle wasting) - Eye Eye exam: Present: EOMI. Absent: scleral icterus Pupils: Present: JAILYN - ENT ENT exam: Present: normal exam - Neck Neck exam: Absent: lymphadenopathy, thyromegaly - Respiratory Respiratory exam: Present: accessory muscle use, decreased breath sounds (She has decreased breath sounds throughout the right chest.). Absent: wheezes - Cardiovascular Cardiovascular exam: Present: JVD, regular rate and rhythm, tachycardia. Absent : gallop, systolic murmur - GI/Abdominal GI/Abdominal exam: Present: distended, organomegaly (She does have hepatomegaly) , soft. Absent: tenderness - Extremities Exam Extremities exam: Absent: calf tenderness, edema - Neurological Exam Neurological exam: Present: alert, oriented X3 - Psychiatric Psychiatric exam: Present: anxious - Skin Skin exam: Present: warm, dry Medical,Surgical,& Family Hx - Medical History Cardio: No history of: Aneurysm, Cardiac Dysrhythmia, Cerebrovascular Disease, Congenital Heart Disease, CHF, CAD, Hypertension, [place], Pacemaker, PVD, Valvular Heart Disease, Cardiovascular Problems Psychological: No history of: Anxiety Disorders, ADHD, Behavior Problems, Bipolar Disorder, Depression, Previous Suicide Attempt, Psychiatric/Substance Abuse Tx, Schizophrenia, Violent Behavior, Psychiatric Problems Neurology: No history of: Seizures Respiratory: History of: COPD, Pulmonary Hypertension, Lung Cancer, Respiratory Problems Hematology: History of: Anemia - Surgical History Abdominal Surgeries: Surgical HX of: Abdominal Surgery ("For some kind of infection") - Family History Family History: Reports;: Family Cancer, Family Heart Disease - Social History Smoking Status: Current every day smoker Frequency of Alcohol Use: None Type of Drug Use: None Results - Labs CBC & BMP: 01/23/17 06:37 01/23/17 06:37 - Diagnostic Findings Procedure: CT - chest: image reviewed by me, report reviewed by me (CT is unchanged from before. She has opacified right lung.)
[2017-01-23] MEDS: MORPHINE 2 MG/1 ML SYRINGE IV PRN ×3 (10:09→14:58)
[2017-01-23] MEDS: methylPREDNISolone SOD SUC 40 MG/1 ML VIAL IV SCH ×2 (10:10→17:55)
[2017-01-23] MEDS: ALBUTEROL/IPRATROPIUM 3 ML NEB RESP TX SCH ×2 (11:05→20:25)
[2017-01-23] MEDS ORDERED: LORazepam 1 MG TABLET PO PRN (12:00)
[2017-01-23] MEDS ORDERED: VANCOMYCIN INJ 1,000 MG in SODIUM CHLORIDE 0.9% 250 ML IV ONE (12:00)
[2017-01-23] MEDS: CEFEPIME 1,000 MG in SODIUM CHLORIDE 0.9% 50 ML IV SCH (12:18)
[2017-01-24] MEDS: ALBUTEROL/IPRATROPIUM 3 ML NEB RESP TX SCH ×5 (00:28→19:26)
[2017-01-24] MEDS: CEFEPIME 1,000 MG in SODIUM CHLORIDE 0.9% 50 ML IV SCH ×2 (00:58→12:08)
[2017-01-24] MEDS: ALBUMIN 25% 25 GM in PREMIX 1 EACH IV SCH (00:59)
[2017-01-24] MEDS: methylPREDNISolone SOD SUC 40 MG/1 ML VIAL IV SCH ×3 (01:00→17:35)
[2017-01-24] MEDS: MORPHINE 2 MG/1 ML SYRINGE IV PRN ×2 (02:25→04:15)
[2017-01-24] MEDS ORDERED: METOPROLOL TARTRATE 5 MG/5 ML VIAL IV ONE ×2 (03:07→14:49)
[2017-01-24] MEDS ORDERED: SODIUM CHLORIDE 0.9% 500 ML IV ONE (03:08)
[2017-01-24 04:49] LABS: Basophils % 0.2 % (0.0-0.8); Hematocrit 34.3 VOL% (35.7-47.0); Hemoglobin 9.7 GM/DL (12.0-16.0); Immature Granulocytes % 1.8 %; Lymphocytes # 1.2 10*3/uL (1.4-4.0); Lymphocytes % 7.2 % (21.3-54.2); Mean Corpuscular HGB Conc 28.3 GM/DL (32-36); Mean Corpuscular Hemoglobin 28 PG (27-34); Mean Corpuscular Volume 99.7 FL (87-102); Mean Platelet Volume 10.3 FL (9.6-12.0); Monocytes # 0.6 10*3/uL (0.11-0.8); Monocytes % 3.3 % (1.7-12.7); Neutrophils # 14.8 10*3/uL (1.4-7.4); Neutrophils % 87.5 % (38.7-73.9); Platelet Count 106 T/CUMM (130-400); Red Blood Count 3.44 MC/CUMM (3.8-5.5); Red Cell Distribution Width 16.5 % (9.3-17.3); White Blood Count 16.9 T/CUMM (4-12)
[2017-01-24 05:27] LABS: Albumin 3.2 G/DL (3.4-5.0); Bilirubin,Total 0.8 MG/DL (0.2-1.0); Calcium 6.9 MG/DL (8.5-10.1); Osmolality,Calculated 275.8 MOS/KG (273-304); Potassium 5.6 MMOL/L (3.5-5.1); Total Protein 6.5 G/DL (6.4-8.3)
[2017-01-24 06:28] LABS: Microcytosis 1+; Ovalocytes Slight; Platelet Estimate Decreased
--- NOTE | 2017-01-24 06:39 | Pulmonology Progress Note ---
Pulmonary - PN: Subj Interval history: The patient is a 56-year-old white lady that has metastatic squamous cell carcinoma of the lung. She has an obstructed right main bronchus with complete atelectasis of the right lung. She has received 1 cycle of chemotherapy. She comes in extremely dehydrated and short of breath and is extremely debilitated. Last night she had to be put on BiPAP to improve her oxygenation. She has been quite lethargic at times. She does not want to be intubated. Her blood pressure has been on the low side. She seems to be tolerating BiPAP fairly well at present. Exam (Progress Note) - Constitutional Vitals: Period Temp Pulse Resp BP Sys/Singh Pulse Ox Last 24 Hr 96.6 F-97.3 F 90-153 7-21 54-123/25-76 86-100 Exam: General appearance: mild distress (The patient is quite lethargic but is comfortable on BiPAP.), cachectic - Head Head exam: Present: other (She has temporal muscle wasting) - Eye Eye exam: Present: EOMI. Absent: scleral icterus Pupils: Present: JAILYN - ENT ENT exam: Present: normal exam - Neck Neck exam: Absent: lymphadenopathy, thyromegaly - Respiratory Respiratory exam: Present: She has absent breath sounds on the right. Her left is prolonged expiration with rhonchi. - Cardiovascular Cardiovascular exam: Present: JVD, regular rate and rhythm, tachycardia. Absent : gallop, systolic murmur - GI/Abdominal GI/Abdominal exam: Present: distended, organomegaly (She does have hepatomegaly) , soft. Absent: tenderness - Extremities Exam Extremities exam: Absent: calf tenderness, edema - Neurological Exam Neurological exam: Present: alert, oriented X3. She will move her extremities. - Psychiatric Psychiatric exam: Present: anxious - Skin Skin exam: Present: warm, dry Results - Labs CBC & BMP: 01/24/17 04:40 01/24/17 04:40 Assessment and Plan (1) COPD exacerbation Status: Acute Assessment and plan: The patient does have severe COPD and will continue with respiratory therapy. Will try an Aminophyllin infusion. Current Visit: No (2) Acute on chronic respiratory failure with hypoxia and hypercapnia Status: Acute Assessment and plan: The patient dropped her oxygen saturation last night and had to be put on BiPAP. Current Visit: No (3) Stage IV squamous cell carcinoma of lung Status: Acute Assessment and plan: Patient will need to continue with chemotherapy. Her overall prognosis is poor. Current Visit: No
[2017-01-24] MEDS: AMINOPHYLLINE 1,000 MG in SODIUM CHLORIDE 0.9% 460 ML IV SCH (07:50)
[2017-01-24] MEDS ORDERED: INFLUENZA VIRUS VACCINE 0.5 ML SYRINGE IM ONE (09:00)
[2017-01-24] MEDS: PANTOPRAZOLE 40 MG TABLET PO SCH (09:22)
[2017-01-24] MEDS: ENOXAPARIN 40 MG/0.4 ML SYRINGE SUBCUT SCH (09:22)
--- NOTE | 2017-01-24 09:31 | Hospitalist Progress Note ---
Assessment and Plan (1) Atelectasis of right lung Status: Acute Assessment and plan: The patient continues to have hypoxia. Prognosis is guarded and the patient appears to be preterminal. I have asked the nurse to emphasize comfort care. Current Visit: No (2) Lung cancer Status: Chronic Current Visit: No (3) Squamous cell carcinoma of lung, stage IV Status: Acute Current Visit: Yes Hospitalist: Subjective Interval history: The patient has been hypotensive overnight with sinus tachycardia on account of hypoxia. The patient has obstruction of the right mainstem bronchus with squamous cell carcinoma. The patient has DNR status and appears to be preterminal. I counseled her son at the bedside. Exam - Constitutional Vitals: Period Temp Pulse Resp BP Sys/Singh Pulse Ox Last 24 Hr 96.7 F-97.3 F 90-153 7-21 54-123/25-76 66-100 Exam: Constitutional System: Moderate distress. No tremulousness. Wearing BiPAP. The patient is minimally responsive Head: Normocephalic, atraumatic. Ears, Nose and Throat System: No evidence of Otitis or Mastoiditis. No epistaxis or discharge Eyes System: Pupils equal, round, and reactive. Extraocular muscles intact. Neck: Supple, without adenopathy, No jugular venous distention. No thyromegaly , neck mass, or prior surgery apparent. Respiratory System: Chest decreased breath sounds on the right with rhonchi on the left Cardiovascular System: Heart with regular tachycardic rate and rhythm. No murmur. GI System: Abdomen soft, nontender. Normo active bowel sounds present. Results - Labs CBC & BMP: 01/24/17 04:40 01/24/17 04:40
[2017-01-24] MEDS: METOPROLOL TARTRATE 5 MG/5 ML VIAL IV PRN (14:59)
[2017-01-24] MEDS ORDERED: LORazepam 2 MG/1 ML VIAL ONE (20:02)
[2017-01-24] MEDS: LORazepam 2 MG/1 ML VIAL IV PRN (20:10)
[2017-01-25] MEDS: ALBUTEROL/IPRATROPIUM 3 ML NEB RESP TX SCH ×4 (00:45→19:11)
[2017-01-25] MEDS: methylPREDNISolone SOD SUC 40 MG/1 ML VIAL IV SCH ×3 (01:39→17:40)
[2017-01-25] MEDS: LORazepam 2 MG/1 ML VIAL IV PRN ×3 (01:45→17:40)
[2017-01-25] MEDS: CEFEPIME 1,000 MG in SODIUM CHLORIDE 0.9% 50 ML IV SCH ×2 (02:05→11:31)
[2017-01-25 05:18] LABS: Albumin 3.4 G/DL (3.4-5.0); Bilirubin,Total 0.4 MG/DL (0.2-1.0); Calcium 7.1 MG/DL (8.5-10.1); Osmolality,Calculated 278.8 MOS/KG (273-304); Potassium 5.2 MMOL/L (3.5-5.1); Total Protein 6.7 G/DL (6.4-8.3)
[2017-01-25 07:23] LABS: Basophils % 0.1 % (0.0-0.8); Hematocrit 31.2 VOL% (35.7-47.0); Hemoglobin 9.1 GM/DL (12.0-16.0); Immature Granulocytes % 1.1 %; Immature Granulocytes Absolute 0.14 #; Lymphocytes # 0.5 10*3/uL (1.4-4.0); Lymphocytes % 3.8 % (21.3-54.2); Mean Corpuscular HGB Conc 29.2 GM/DL (32-36); Mean Corpuscular Hemoglobin 28 PG (27-34); Mean Corpuscular Volume 96.9 FL (87-102); Mean Platelet Volume 10.5 FL (9.6-12.0); Monocytes # 0.7 10*3/uL (0.11-0.8); Monocytes % 5.8 % (1.7-12.7); Neutrophils # 11.4 10*3/uL (1.4-7.4); Neutrophils % 89.2 % (38.7-73.9); Red Blood Count 3.22 MC/CUMM (3.8-5.5); Red Cell Distribution Width 16.3 % (9.3-17.3); White Blood Count 12.7 T/CUMM (4-12)
[2017-01-25 07:26] LABS: Platelet Count 81 T/CUMM (130-400)
--- NOTE | 2017-01-25 07:29 | Pulmonology Progress Note ---
Pulmonary - PN: Subj Interval history: The patient is a 56-year-old white lady that has metastatic squamous cell carcinoma of the lung. She has an obstructed right main bronchus with complete atelectasis of the right lung. She has received 1 cycle of chemotherapy. She comes in extremely dehydrated and short of breath and is extremely debilitated. She has been requiring BiPAP but she is a little more comfortable today. She is responding a little better and seems to be breathing a little better. She has a tachycardia but her blood pressure is adequate. Her oxygenation is adequate. Exam (Progress Note) - Constitutional Vitals: Period Temp Pulse Resp BP Sys/Singh Pulse Ox Last 24 Hr 96.0 F-98.2 F 98-170 8-19 60-103/44-74 72-100 Exam: General appearance: mild distress (The patient is responding a little better and has been comfortable on BiPAP.), cachectic - Head Head exam: Present: other (She has temporal muscle wasting) - Eye Eye exam: Present: EOMI. Absent: scleral icterus Pupils: Present: JAILYN - ENT ENT exam: Present: normal exam - Neck Neck exam: Absent: lymphadenopathy, thyromegaly - Respiratory Respiratory exam: Present: She has absent breath sounds on the right. Her left lung has prolonged expiration with rhonchi. - Cardiovascular Cardiovascular exam: Present: JVD, regular rate and rhythm, tachycardia. Absent : gallop, systolic murmur - GI/Abdominal GI/Abdominal exam: Present: distended, organomegaly (She does have hepatomegaly) , soft. Absent: tenderness - Extremities Exam Extremities exam: Absent: calf tenderness, edema - Neurological Exam Neurological exam: Present: alert, oriented X3. She will move her extremities. - Psychiatric Psychiatric exam: Present: anxious - Skin Skin exam: Present: warm, dry Results - Labs CBC & BMP: 01/24/17 04:40 01/25/17 04:05 Assessment and Plan (1) COPD exacerbation Status: Acute Assessment and plan: The patient does have severe COPD and will continue with respiratory therapy. She may be breathing a little better today. Current Visit: No (2) Acute on chronic respiratory failure with hypoxia and hypercapnia Status: Acute Assessment and plan: The patient dropped her oxygen saturation last night and had to be put on BiPAP. She has been resting reasonably well on BiPAP. Current Visit: No (3) Stage IV squamous cell carcinoma of lung Status: Acute Assessment and plan: Patient will need to continue with chemotherapy. Her overall prognosis is poor. Current Visit: No
[2017-01-25 07:51] LABS: Band Neutrophils 3 % (0-10); Hypochromasia 1+; Lymphocytes 6 % (20-55); Nucleated Red Blood Cells 1 (0-5); Segmented Neutrophils 89 % (50-85); Total Cells Counted 100
[2017-01-25] MEDS: AMINOPHYLLINE 1,000 MG in SODIUM CHLORIDE 0.9% 460 ML IV SCH (07:51)
[2017-01-25 07:52] LABS: Microcytosis 1+
[2017-01-25 07:53] LABS: Platelet Estimate Decreased
[2017-01-25] MEDS: ENOXAPARIN 40 MG/0.4 ML SYRINGE SUBCUT SCH (08:29)
[2017-01-25] MEDS: PANTOPRAZOLE 40 MG VIAL IV SCH (08:29)
[2017-01-25] MEDS: METOPROLOL TARTRATE 5 MG/5 ML VIAL IV PRN ×3 (08:29→21:00)
--- NOTE | 2017-01-25 11:20 | Hospitalist Progress Note ---
Assessment and Plan (1) Atelectasis of right lung Status: Acute Assessment and plan: The patient continues to have hypoxia. Prognosis is guarded and the patient appears to be preterminal. I have asked the nurse to emphasize comfort care. The patient does not wish to be intubated. Current Visit: No (2) Lung cancer Status: Chronic Current Visit: No (3) Squamous cell carcinoma of lung, stage IV Status: Acute Current Visit: Yes Hospitalist: Subjective Interval history: This is a patient with squamous cell carcinoma which obstructs the right lung. The patient had received 1 round of chemotherapy. The patient is now readmitted with respiratory failure and appears preterminal. I reviewed the progress to date with the patient's son and in the intensive care unit at the bedside. We are using measures to help the patient be as comfortable as possible and she is moderately sedated. She does not wish to be intubated. Exam - Constitutional Vitals: Period Temp Pulse Resp BP Sys/Singh Pulse Ox Last 24 Hr 96.0 F-98.2 F 130-170 8-18 60-103/24-74 87-100 Exam: Constitutional System: Mild distress. No tremulousness. Wearing BiPAP. The patient is minimally responsive Head: Normocephalic, atraumatic. Ears, Nose and Throat System: No evidence of Otitis or Mastoiditis. No epistaxis or discharge Eyes System: Pupils equal, round, and reactive. Extraocular muscles intact. Neck: Supple, without adenopathy, No jugular venous distention. No thyromegaly , neck mass, or prior surgery apparent. Respiratory System: Chest decreased breath sounds on the right with rhonchi on the left Cardiovascular System: Heart with regular tachycardic rate and rhythm. No murmur. GI System: Abdomen soft, nontender. Normo active bowel sounds present. Results - Labs CBC & BMP: 01/25/17 07:17 01/25/17 04:05 Lab Results: I have reviewed the past 24 hour labs
[2017-01-25] MEDS: MORPHINE 2 MG/1 ML SYRINGE IV PRN (19:42)
[2017-01-26] MEDS: CEFEPIME 1,000 MG in SODIUM CHLORIDE 0.9% 50 ML IV SCH (01:09)
[2017-01-26] MEDS: ALBUTEROL/IPRATROPIUM 3 ML NEB RESP TX SCH ×4 (01:30→14:22)
[2017-01-26] MEDS: methylPREDNISolone SOD SUC 40 MG/1 ML VIAL IV SCH ×2 (03:08→10:44)
[2017-01-26 05:37] LABS: Basophils % 0.1 % (0.0-0.8); Eosinophils % 0.1 % (0.00-10.9); Hematocrit 30.8 VOL% (35.7-47.0); Hemoglobin 8.8 GM/DL (12.0-16.0); Immature Granulocytes % 1.7 %; Immature Granulocytes Absolute 0.24 #; Lymphocytes # 0.8 10*3/uL (1.4-4.0); Lymphocytes % 5.4 % (21.3-54.2); Mean Corpuscular HGB Conc 28.6 GM/DL (32-36); Mean Corpuscular Hemoglobin 29 PG (27-34); Mean Corpuscular Volume 99.7 FL (87-102); Monocytes # 0.9 10*3/uL (0.11-0.8); Monocytes % 6.6 % (1.7-12.7); NRBC # 0.05 10*3/uL; Neutrophils # 12.3 10*3/uL (1.4-7.4); Neutrophils % 86.1 % (38.7-73.9); Red Blood Count 3.09 MC/CUMM (3.8-5.5); Red Cell Distribution Width 16.9 % (9.3-17.3); White Blood Count 14.3 T/CUMM (4-12)
[2017-01-26 05:41] LABS: Platelet Count 66 T/CUMM (130-400)
[2017-01-26 05:51] LABS: Albumin 3.4 G/DL (3.4-5.0); Bilirubin,Total 0.7 MG/DL (0.2-1.0); Calcium 6.7 MG/DL (8.5-10.1); Potassium 5.6 MMOL/L (3.5-5.1); Total Protein 6.7 G/DL (6.4-8.3)
[2017-01-26 05:54] LABS: Hypochromasia 1+; Ovalocytes Slight; Platelet Estimate Decreased
[2017-01-26 05:55] LABS: Microcytosis 1+
[2017-01-26] MEDS: MORPHINE 2 MG/1 ML SYRINGE IV PRN (06:12)
[2017-01-26] MEDS: METOPROLOL TARTRATE 5 MG/5 ML VIAL IV PRN ×2 (06:24→07:49)
--- NOTE | 2017-01-26 07:26 | Pulmonology Progress Note ---
Pulmonary - PN: Subj Interval history: The patient is a 56-year-old white lady that has metastatic squamous cell carcinoma of the lung. She has an obstructed right main bronchus with complete atelectasis of the right lung. She has received 1 cycle of chemotherapy. She comes in now with significant respiratory distress and is extremely debilitated. She has a fast heart rate and low blood pressure. She is requiring BiPAP just to maintain an O2 saturation that is adequate. She is poorly responsive now. She is getting some morphine to keep her comfortable. She has very little chance of survival. Exam (Progress Note) - Constitutional Vitals: Period Temp Pulse Resp BP Sys/Singh Pulse Ox Last 24 Hr 96.9 F-97.9 F 145-185 6-23 66-103/24-71 82-100 Exam: General appearance: mild distress (The patient is basically obtunded now. She is still requiring BiPAP. She at least looks comfortable) - Head Head exam: Present: other (She has temporal muscle wasting) - Eye Eye exam: Present: EOMI. Absent: scleral icterus Pupils: Present: JAILYN - ENT ENT exam: Present: normal exam, she has a BiPAP mask in place. - Neck Neck exam: Absent: lymphadenopathy, thyromegaly - Respiratory Respiratory exam: Present: She has absent breath sounds on the right. Her left lung has prolonged expiration with rhonchi. She has very coarse breath sounds on the left. - Cardiovascular Cardiovascular exam: Present: JVD, regular rate and rhythm, tachycardia. Absent : gallop, systolic murmur - GI/Abdominal GI/Abdominal exam: Present: distended, organomegaly (She does have hepatomegaly) , soft. Absent: tenderness - Extremities Exam Extremities exam: Absent: calf tenderness, edema - Neurological Exam Neurological exam: Present: She will arouse but is basically obtunded now. - Psychiatric Psychiatric exam: Present: She does look comfortable at present. - Skin Skin exam: Present: warm, dry Results - Labs CBC & BMP: 01/26/17 04:42 01/26/17 04:43 Assessment and Plan (1) COPD exacerbation Status: Acute Assessment and plan: The patient does have severe COPD and will continue with respiratory therapy. She is requiring BiPAP. Current Visit: No (2) Acute on chronic respiratory failure with hypoxia and hypercapnia Status: Acute Assessment and plan: The patient basically has end-stage lung disease with her extensive cancer and COPD. Will try to keep her comfortable. Current Visit: No (3) Stage IV squamous cell carcinoma of lung Status: Acute Assessment and plan: Patient will need to continue with chemotherapy. Her overall prognosis is poor. Current Visit: No
[2017-01-26] MEDS ORDERED: SODIUM CHLORIDE 0.9% 1,000 ML IV SCH (07:30)
--- NOTE | 2017-01-26 08:04 | Oncology Progress Note ---
Oncology Subjective PN Interval history: Ms. Jones has deteriorated over the weekend. She was due a smaller dose of chemotherapy but is not stable or well enough to give it. I don't expect her to recover at this point. Exam - Constitutional Vitals: Period Temp Pulse Resp BP Sys/Singh Pulse Ox Last 24 Hr 96.9 F-97.9 F 145-185 6-23 66-103/24-71 68-100 Results - Labs CBC & BMP: 01/26/17 04:42 01/26/17 04:43
[2017-01-26] MEDS ORDERED: ENOXAPARIN 30 MG/0.3 ML SYRINGE SUBCUT SCH (09:00)
[2017-01-26] MEDS ORDERED: LORazepam 2 MG/1 ML VIAL IV PRN (09:57)
[2017-01-26] MEDS ORDERED: MORPHINE 2 MG/1 ML SYRINGE IV PRN (09:57)
[2017-01-26] MEDS: PANTOPRAZOLE 40 MG VIAL IV SCH (10:44)
[2017-01-26 11:06] VITALS: BP 90/45
--- NOTE | 2017-01-26 13:08 | Discharge Summary ---
Hospital Course - Hospital Course Hospital Course: 56 year old female with newly diagnosed metastatic SCC of the lung who was recently diagnosed and recent her first chemotherapy treatment and discharged on 01/16/17. Patient developed worsening sob and didnt return for her second treatment of chemotherapy. Patient developed on acute PE and was treated for sepsis. Pulmonary was consulted and treated her for her a copd exacerbation but did not feel she had any evidence of pneumonia. Patient rapidly deteriorated and placed on bipap. Patient's family made her a DNR and I spoke to them today and they wanted comfort care. Before other family could arrive, patient went into respiratory failure and developed asystole and at 1124. - Time spent with patient Time with patient DS: Greater than 30 minutes (45 min) Discharge Plan - Discharge Data Disposition: - Discharge Medications No Action Theophylline ER Cap (24 Hr) [Fritz-24] 400 mg PO DAILY #30 capsule Zinc Oxide Paste [Desitin Paste] 1 applic TOP BID applic Promethazine Tab [Phenergan Tab] 12.5 mg PO Q4H #30 tablet Metoprolol Tartrate Tab [Lopressor Tab] 25 mg PO BID #60 tablet - Follow Up or Referral - Forms/Instructions Exam - Constitutional Vitals: Period Temp Pulse Resp BP Sys/Singh Pulse Ox Last 24 Hr 97.1 F-97.9 F 135-185 10- 47-103/25- 68-100 Exam: prior to expiration Heart Rate-[tachy] Lungs-[diminished and rhonchi ] GI-[+bs soft, NT] Ext-[no edema] Neuro lethargic and unresponsive psych cannot not evaluate due to lethargy General [mild acute distress] Discharge Results Procedures and tests throughout hospitalization: Pending Orders 01/22/17 23:31 Blood Culture Stat 01/26/17 05:20 MRSA Surveillence, Inf Control 01/27/17 04:00 Comp Blood Count Auto Diff IN AM Comprehensive Metabolic Panel IN AM LDH [Lactate Dehydrogenase] IN AM 01/28/17 04:00 Comp Blood Count Auto Diff IN AM Comprehensive Metabolic Panel IN AM LDH [Lactate Dehydrogenase] IN AM 01/29/17 04:00 Comp Blood Count Auto Diff IN AM Comprehensive Metabolic Panel IN AM Labs on day of discharge: Labs from last 24 hours 01/26/17 01/26/17 04:43 04:42 WBC 14.3 H RBC 3.09 L Hgb 8.8 L Hct 30.8 L MCV 99.7 MCH 29 MCHC 28.6 L RDW 16.9 Plt Count 66 L MPV 11.0 Neut % (Auto) 86.1 H Lymph % (Auto) 5.4 L [place] % (Auto) 6.6 Eos % (Auto) 0.1 Baso % (Auto) 0.1 Neut # (Auto) 12.3 H Lymph # (Auto) 0.8 L [place] # (Auto) 0.9 H Eos # (Auto) 0.0 Baso # (Auto) 0.0 Immature Gran % 1.7 Nucleated RBC % 0.4 Immature Gran # 0.24 Nucleated RBCs # 0.05 Platelet Estimate Decreased Immature Plt Fraction 8.9 H Hypochromasia 1+ Microcytosis 1+ Ovalocytes Slight Morphology Comment Sodium 136 Potassium 5.6 H Chloride 101 Carbon Dioxide 27 Anion Gap 13.6 BUN 49 H Creatinine 1.80 H GFR Calculation 27 BUN/Creatinine Ratio 27.00 H Glucose 114 H Calculated Osmolality 285.0 Calcium 6.7 L Total Bilirubin 0.70 AST 21 ALT 26 Alkaline Phosphatase 83 Lactate Dehydrogenase 289 H Total Protein 6.7 Albumin 3.4 Globulin 3.3 Albumin/Globulin Ratio 1.0 L Preliminary micro results at discharge 01/22/17 23:31 Blood Culture - Preliminary Blood No growth at 3 days 01/22/17 23:31 Blood Culture - Preliminary Blood No growth at 3 days DS: Provider Date of admission: 01/23/17 03:55 Primary care physician: . No PCP Attending physician on admission: Dav Harkins MD Consults: 01/23/17 03:55 Consult to Physician [CONS] Routine Comment: Consulting Provider: 01/23/17 03:58 Consult to Case Mgmt/Social Srvs [CONS] Routine Reason for Case Mgmt/Social Srvs: Discharge Planning Hospice Referral 01/23/17 04:00 Consult to Physician [CONS] Routine Comment: metastatic lung cancer; paitent known to you Consulting Provider: Conrad Burgos When should Consulting Provider be notified: In am 01/23/17 06:22 Consult to Pastoral Services [CONS] Routine Comment: Pastoral Screen: Request Manufacturing Technology Analyst Visit Pastoral Screen Source of Request: Patient 01/23/17 08:22 Consult to Physician [CONS] Routine Comment: Patient known to you. Consulting Provider: Cory Mercado Consulting Provider Notified: Yes Person Notified: [email or web address] Date Notified: 01/23/17 Time Notified: 08:40 Consult Notification Comment: will let dr mercado know. Discharging clinician: Lona Truong MD
== END 2017-01-26 11:24 | disposition expired | DRG 871 ==
LOC: N.ED 22:11 → N.EDINP 01-23 03:55 → SUATTDRO 01-23 03:55 → N.4E 01-23 04:52 → N.CC 01-23 05:43 → N.ICU 01-24 17:28
PROVIDERS: ADMIT Internal Medicine; ATTEND Internal Medicine